=== PATIENT | female | born 1935 | race Caucasian/White ===

== ENCOUNTER 2020-01-06 18:05 | Inpatient (IN) | payer OTHER, MEDICARE, MEDICAID, SELFPAY ==
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
--- NOTE | ~2020-01-06 | MR_ITS ---
EXAMINATION: MR brain/brain stem wo con DATE: 01/07/2020 10:42 INDICATION: Stroke TECHNIQUE: Magnetic resonance imaging (MRI) of the brain and brainstem was performed without intraven ous contrast. Sequences included sagittal and axial T1-weighted SE, axial diffusion-weighted FS SE, a xial T2*-weighted GRE, axial T2-weighted FLAIR, and axial T2-weighted FSE. Apparent diffusion coeffic ient (ADC) maps were created. COMPARISON: Head CT dated 01/06/2020 FINDINGS: There is restricted diffusion and T2 hyperintense cytotoxic edema in the left temporal parietal occip ital region consistent with acute infarct. No intracranial hemorrhage or abnormal intracranial mass l esion. There are a few additional small scattered areas of nonspecific increased T2-weighted signal i ntensity in the cerebral white matter, predominantly involving the deep and periventricular white mat ter. There are no intraparenchymal signal abnormalities seen on the other pulse sequences. The ventri cles are symmetric and normal in size. There are no abnormal extra-axial fluid collections. Flow void s are seen in the cerebral arteries on the T2-weighted sequences consistent with their expected paten cy. Mild mucosal thickening the bilateral ethmoid sinuses. Changes of bilateral intraocular lens repl acement. There is anterior and posterior fusion at C4-C5. IMPRESSION: 1. Moderate-sized acute infarct in the left temporal parietal occipital region. Reviewed, dictated and finalized at location A.
--- NOTE | ~2020-01-06 | US_ITS ---
EXAMINATION: US carotid duplex BI DATE: 01/07/2020 11:32 INDICATION: CVA TECHNIQUE: Grayscale, color Doppler, and pulsed Doppler images of the cervical carotid arteries were obtained. The degree of vessel stenosis is placed in one of the following categories: normal, <50%, 5 0-69%, >=70% but less than near-occlusion, near-occlusion, or total occlusion. Note that percent sten osis relative to normal distal artery lumen diameter is indirectly measured from velocity measurement s as described by Laith, et al. Radiology 2003; 229:340-346. Notes: Normal: Peak systolic velocity <125 centimeters/sec and no plaque <50%. Peak systolic velocity <125 ( EDV <40; ICA/CCA PSV ratio <2.0; used these factors only a tandem lesions or low cardiac output or co ntralateral disease) 50-69 %: PSV 125-230 (EDV 40-100; ratio 2-4) >= 70% but less than near occlusion: PSV greater than 230 (EDV > 100; ratio> 4.0) Near Occlusion: PSV that is variable; markedly narrowed lumen Occlusion: Absent flow on color/spectral Doppler and no lumen on archer scale. COMPARISON: None. FINDINGS: RIGHT: The right common carotid artery (CCA) peak systolic velocity (PSV) is 57 cm/s. The right internal car otid artery (ICA) PSV is 150 cm/s. The right ICA end-diastolic velocity (EDV) is 36 cm/s. The right I CA/CCA PSV ratio is 2.6. The external carotid artery (ECA) PSV is 60 cm/s. There is antegrade flow in the right vertebral artery. LEFT: The left CCA PSV is 66 cm/s. The left ICA PSV is 68 cm/s. The left ICA EDV is 19 cm/s. The left ICA/C CA PSV ratio is 1. The ECA PSV is 58 cm/s. There is antegrade flow in the left vertebral artery. IMPRESSION: 1. 50-69% stenosis in the right internal carotid artery by sonographic criteria. 2. Less than 50% stenosis in the left internal carotid artery by sonographic criteria. Reviewed, dictated and finalized at location A. IMPRESSION: 1. 50-69% stenosis in the right internal carotid artery by sonographic criteria . 2. Less than 50% stenosis in the left internal carotid artery by sonographic cr iteria.
[2020-01-06 18:03] VITALS: BP 150/66; PULSE 76; RESP 18; TEMP 36.6; O2SAT 100
--- NOTE | 2020-01-06 18:15 | ECG_ITS ---
Measurements Intervals [place] Rate: 71 P: 44 LA: 172 QRS: -7 QRSD: 91 T: 8 QT: 384 QTc: 420 Interpretive Statements SINUS RHYTHM VOLTAGE CRITERIA FOR LVH BORDERLINE T WAVE ABNORMALITY- INFERIOR LEADS BASELINE ARTIFACT- I, II, AVR BORDERLINE ECG Electronically Signed On 01-07-2020 7:09:06 CDT by Beto Carreon D.O.
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
[2020-01-06 19:01] LABS: Basophils Percent Auto 0.4 % (0.2-1.2); Eosinophils Absolute Auto 0.2 K/mm3 (0-0.3); Eosinophils Percent Auto 2.8 % (0-4.4); Hematocrit 37.8 % (37.0-47.0); Hemoglobin 12.1 g/dL (12.0-15.0); Immature Granulocyte Absolute 0.03 K/mm3 (0.00-0.031); Immature Granulocyte Percent A 0.4 % (0-0.5); Lymphocytes Absolute Auto 1.26 K/mm3 (0.9-3.2); Lymphocytes Percent Auto 16.2 % (18.3-44.2); Mean Corpuscular Hemoglobin 28.1 pg (26-34); Mean Corpuscular Volume 87.7 fl (80-100); Mean Platelet Volume 11.2 fl (7.4-10.4); Monocytes Absolute Auto 0.8 K/mm3 (0.1-0.6); Monocytes Percent Auto 9.9 % (2.6-8.5); Neutrophils Absolute Auto 5.5 K/mm3 (1.3-6.7); Neutrophils Percent Auto 70.3 % (45.5-73.1); Platelet Count Result 188 k/mm3 (150-375); Red Blood Count 4.31 M/mm3 (4.2-5.4); Red Cell Distribution Width 15.3 % (11.5-14.5); White Blood Count 7.8 K/mm3 (4.5-10.0)
[2020-01-06 19:13] LABS: Blood Urea Nitrogen 31 mg/dL (7-17); Calcium 9.3 mg/dL (8.4-10.2); Carbon Dioxide 24 mmol/L (22-30); Chloride 108 mmol/L (98-107); Estimated CRCL calculation 30 ml/min; Estimated Glomerular Filt Rate 36; Glucose 113 mg/dL (65-105); Potassium 4.5 mmol/L (3.4-5.0); Sodium 139 mmol/L (137-145)
[2020-01-06 19:14] LABS: Partial Thromboplastin Time 22.4 SECONDS (22.3-36.8); Prothrombin Time 13.3 Seconds (11.1-14.7)
[2020-01-06 19:24] LABS: Troponin I < 0.012 ng/mL (0.000-0.034)
[2020-01-06 19:53] VITALS: BP 142/64; PULSE 73; RESP 18
--- NOTE | 2020-01-06 20:40 | ADMGEN ---
This patient, Leticia Nguyen, was admitted to 2 Medical Room 256-. Patient/family oriented to hospital policies and general routines including ID bracelet, bed and alarms, visiting hours, pain management, procedures, bathroom and other care routines, personal items, smoking policy, room service/diet, and visiting hours. Valuables list has been completed. Information on how to activate the Rapid Response Team has been discussed. Patient/Family are encouraged to report perceived risks to care and to ask questions if they do not understand what they are told or what they should do.
[2020-01-06 20:58] VITALS: BP 133/64; PULSE 79; RESP 20; TEMP 36.4; O2SAT 99
[2020-01-06 20:59] VITALS: BMI 31.9
[2020-01-06 21:00] VITALS: PULSE 73
[2020-01-06] MEDS: ACETAMINOPHEN 325 MG TABLET 650 MG PO (22:10)
[2020-01-06 23:48] VITALS: PULSE 79; RESP 20; O2SAT 99
[2020-01-07] VITALS (9 sets, daily range): BP systolic 124–132; BP diastolic 48–60; PULSE 65–79; RESP 16–18; TEMP 36.8–36.9; O2SAT 95–99
--- NOTE | 2020-01-07 | ECHO_ITS ---
Patient Info Name: Leticia Nguyen Age: 84 years : 1935 Gender: Female Ht: 63 in Wt: 208 lbs BSA: 2.09 m2 HR: 73 bpm BP: 124 / 48 mmHg Heart Rhythm: Sinus Rhythm Technical Quality: Good Exam Date: 01/07/2020 12:40 PM Exam Location: [facility] Exam Room: 256 Patient Status: Inpatient Admit Date: 01/07/2020 Staff Ordering Physician: Betsy Reveles DO Requirements Engineer: Essence Morrissey RDCS Attending Provider: Gabe Palencia PA-C Referring Physician: Anushka MARIE; Exam Type: CA echo doppler color flow Study Info Indications - acute cva Complete two-dimensional, color flow and Doppler transthoracic echocardiogram is performed. Summary 1. Left ventricular systolic function is normal, estimated at 65-70%. 2. The left ventricular diastolic function is grade II diastolic dysfunction. 3. There is mild tricuspid valve regurgitation. 4. No pulmonary hypertension, estimated pulmonary arterial systolic pressure is 35 mmHg. 5. There is mild aortic valve regurgitation. 6. There is no aortic valve stenosis. Left Ventricle Left ventricular chamber dimension is normal. Left ventricular systolic function is normal, estimated at 65-70%. There is no increased left ventricular wall thickness. The left ventricular diastolic function is grade II diastolic dysfunction. Right Ventricle Right ventricular chamber dimension is normal. Right ventricular systolic function is normal. Left Atria Left atrial chamber dimension is mildly enlarged. Right Atria Right atrial chamber dimension is mildly enlarged. Aortic Valve The aortic valve is trileaflet. There is no aortic valve stenosis. There is mild aortic valve regurgitation. There is mild aortic valve calcification. Pulmonic Valve The pulmonic valve is not well visualized. There is trace pulmonic regurgitation. There is mild pulmonic valve calcification. Mitral Valve The mitral valve has thickened leaflets. There is trace mitral valve regurgitation. The mitral valve annulus is moderately calcified. Tricuspid Valve The tricuspid valve leaflets are normal. There is mild tricuspid valve regurgitation. No pulmonary hypertension, estimated pulmonary arterial systolic pressure is 35 mmHg. Pericardium/Pleural The pericardium appears normal. There is trivial pericardial effusion. Inferior Vena Cava Normal inferior vena cava with >50% collapse upon inspiration consistent with normal right atrial pressure, 5 mmHg. Aorta The aortic root size at the sinus of Valsalva is normal. Left Ventricular Outflow Tract Name Value Normal LVOT 2D LVOT Diameter 2.0 cm LVOT Doppler LVOT Peak Velocity 121 cm/s LVOT Peak Gradient 6 mmHg LVOT Mean Gradient 3 mmHg LVOT VTI 28 cm LVOT VTI/AV VTI Ratio 0.7 LVOT Stroke Volume 86 ml LVOT CO 15.5 l/min LVOT CI 7.4 l/min/m2 Pulmonic Valve --------
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
[2020-01-07 07:22] LABS: Blood Urea Nitrogen 27 mg/dL (7-17); Calcium 8.7 mg/dL (8.4-10.2); Carbon Dioxide 26 mmol/L (22-30); Chloride 109 mmol/L (98-107); Estimated CRCL calculation 56 ml/min; Estimated Glomerular Filt Rate 60; Glucose 99 mg/dL (65-105); Potassium 4.3 mmol/L (3.4-5.0); Sodium 138 mmol/L (137-145)
[2020-01-07] MEDS: AMLODIPINE BESYLATE 5 MG TABLET 10 MG PO (09:35)
[2020-01-07] MEDS: METOPROLOL TARTRATE 25 MG TABLET PO (09:36)
[2020-01-07] MEDS: PANTOPRAZOLE 40 MG TABLET PO (09:36)
--- NOTE | 2020-01-07 09:41 | PCOTNOTE ---
OT attempted initial evaluation. Nurse stated she was getting ready to get an MRI and to try again later.
--- NOTE | 2020-01-07 09:41 | PCPTNOTE ---
Attempted PT eval this a.m. - pt going down for MRI. Will attempt PT eval later on today.
--- NOTE | 2020-01-07 14:21 | PM.IMPN ---
Progress Note: A&P Assessment and Plan (1) Acute ischemic stroke: Code(s): I63.9 - Cerebral infarction, unspecified Status: Acute Assessment and Plan: Neurology has been consulted and appreciate recommendations. Spoke with Dr. Viramontes today who recommended patient resume Xarelto at 10 mg tonight. Also recommended initiating a statin. Echo pending. MRI brain confirmed moderate sized acute CVA in left temporal parietal occipital region. Carotid dopplers shows 50-69% stenosis in right carotid and less than 50% stenosis in left. Patient did well with PT/OT and had no discharge recommenations Dr. 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 Continue to monitor Continue Xarelto tonight at 10 mg (half her home dose) and start atorvastatin 40 mg tonight per Neurology recommendations Further rec per Neurology appreciated. (2) Elevated serum creatinine: Code(s): R79.89 - Other specified abnormal findings of blood chemistry Status: Acute Assessment and Plan: Patient does not appear to have CKD listed in her EMR. Cr improved to 0.90 this morning, appears to be at baseline Will repeat BMP tomorrow Monitor (3) Hypertension: Qualifiers: Hypertension type: essential hypertension Qualified Code(s): I10 - Essential (primary) hypertension Code(s): I10 - Essential (primary) hypertension Status: Acute Assessment and Plan: BP reviewed and 130s sys this afternoon Continue home antihypertensives Monitor (4) Chronic bronchitis: Code(s): J42 - Unspecified chronic bronchitis Status: Acute Assessment and Plan: No acute issues at this moment. Lung exam unremarkable Continue home medications (5) GERD (gastroesophageal reflux disease): Code(s): K21.9 - Gastro-esophageal reflux disease without esophagitis Status: Acute Assessment and Plan: No acute issues at this moment Continue home PPI Subjective Date/time seen: 01/07/20 14:21 Interval history: Patient is a 84 yo right handed F with a past medical history of DVT on chronic anticoagulation and TIA in 2016 who is here for work up for an acute stroke. Patient tells me her symptoms have nearly resolved since being seen overnight by the cook apprentice. Her main complaint are issues with her depth perception, but otherwise she is able to tell time on the clock, which was difficult this morning. Her right handed numbness has improved as well She states PT/OT evaluation went well today. She has a headache and lightheadedness today, but otherwise no other complaints. She denies f/c/s, myalgias/arthralgias, cp/palpitations, sob/cough, n/v/d/c, dysphagia, abd pain, changes in BMs, dysuria, hematuria, cloudy urine, calf pain/swelling. Review of Systems Review of Systems: All systems reviewed & are unremarkable except as noted in HPI and below Exam Narrative: Exam Narrative: Patient lying in semi-seals's position in bed at time of visit Const: General: cooperative, comfortable, no acute distress, well developed and alert Orientation/consciousness: patient oriented x3 HENMT: Head: normocephalic and atraumatic General nose exam: Normal nares present Face and sinus: face symmetric Mouth: Yes tongue normal and Yes moist mucous membranes Eyes: General: appearance normal, both eyes and all related structures EOM: EOMs intact bilaterally Resp: Effort & Inspection: normal respiratory effort Auscultation: clear to auscultation bilaterally Cardio: Rate: regular rate Rhythm: regular rhythm Heart sounds: no murmurs GI: Inspection: non-distended GI Palp: Yes abdom
[2020-01-07] MEDS: ACETAMINOPHEN 325 MG TABLET 650 MG PO (16:16)
[2020-01-07] MEDS: RIVAROXABAN 10 MG TABLET PO (17:08)
[2020-01-08] VITALS: BP 137/64; PULSE 73; PULSE 79; RESP 22; TEMP 36.7; O2SAT 96
[2020-01-08 04:00] VITALS: PULSE 78
[2020-01-08 05:33] LABS: Blood Urea Nitrogen 20 mg/dL (7-17); Calcium 8.6 mg/dL (8.4-10.2); Carbon Dioxide 27 mmol/L (22-30); Chloride 106 mmol/L (98-107); Cholesterol 160 mg/dL (0-200); Estimated CRCL calculation 56 ml/min; Estimated Glomerular Filt Rate 60; Glucose 98 mg/dL (65-105); HDL Direct 53 mg/dL; Magnesium 1.9 mg/dL (1.6-2.3); Potassium 4.3 mmol/L (3.4-5.0); Sodium 136 mmol/L (137-145); Triglycerides 72 mg/dL (<150)
[2020-01-08 05:43] LABS: LDL Cholesterol Direct 75 mg/dL
[2020-01-08 05:48] VITALS: BP 158/62; PULSE 86; RESP 20; TEMP 37.4; O2SAT 93
[2020-01-08 08:00] VITALS: PULSE 89
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
[2020-01-08] MEDS: AMLODIPINE BESYLATE 5 MG TABLET 10 MG PO (09:45)
[2020-01-08 09:46] VITALS: PULSE 86
[2020-01-08] MEDS: ATORVASTATIN 40 MG TABLET PO (09:46)
[2020-01-08] MEDS: PANTOPRAZOLE 40 MG TABLET PO (09:46)
[2020-01-08] MEDS: METOPROLOL TARTRATE 25 MG TABLET PO (09:46)
--- NOTE | 2020-01-08 12:23 | CONS_ITS ---
DATE OF CONSULTATION: 01/07/2020 ADDENDUM The patient has had a Doppler echocardiogram, which documented left ventricle systolic function normal, 65% to 70%, with diastolic function grade 2 dysfunction, mild tricuspid wall regurgitation. No pulmonary hypertension. Mild aortic valve regurgitation, but no aortic valve stenosis. Brain MRI documented the seen infarct on the CT scan, moderate-size acute infarct involving the left temporoparietal region and carotid Doppler study also documented that she has 50% to 69% stenosis in the right internal carotid artery along with less than 50% stenosis in left internal carotid artery by sonographic criteria, but as mentioned before the patient is already on the Rivaroxaban. Treatment will be continued as such. RENETTA GARCIA M.D. PIN MAKER PIN MAKER D I MT: Analisa
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
== END 2020-01-08 13:35 | disposition home or self-care (01) | DRG 66 ==
LOC: ANHED 19:38 → ANH2MED 20:09
PROVIDERS: Emergency Medicine Emergency Medical Services; Physician Assistant; Admitting Provider Internal Medicine; Emergency Provider Emergency Medicine; PCP Internal Medicine; Visit Provider Hospitalist
DX: I63.233 Cerebral infarction due to unspecified occlusion or stenosis of bilateral carotid arteries (principal); H53.8 Other visual disturbances; R51 Headache; R41.0 Disorientation, unspecified; R79.89 Other specified abnormal findings of blood chemistry; K21.9 Gastro-esophageal reflux disease without esophagitis; J42 Unspecified chronic bronchitis; I51.9 Heart disease, unspecified; N32.81 Overactive bladder; N39.46 Mixed incontinence; I12.9 Hypertensive chronic kidney disease with stage 1 through stage 4 chronic kidney disease, or unspecified chronic kidney disease; N18.9 Chronic kidney disease, unspecified; Z96.652 Presence of left artificial knee joint; Z86.718 Personal history of other venous thrombosis and embolism; Z86.73 Personal history of transient ischemic attack (TIA), and cerebral infarction without residual deficits; Z79.01 Long term (current) use of anticoagulants; Z90.710 Acquired absence of both cervix and uterus; Z98.42 Cataract extraction status, left eye; Z98.41 Cataract extraction status, right eye
CPT/HCPCS: 36415; 70450; 70551; 71045; 72125; 80048; 80061; 83735; 84484; 85025; 85610; 85730; 93005; 93306; 93880; 94640; 97110; 97116; 97161; 97165; 99285; A9270; G0378

== ENCOUNTER 2020-03-03 10:00 | Outpatient (RCR) | payer MEDICARE, SELFPAY ==
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
--- NOTE | 2020-01-21 10:32 | PCPTNOTE ---
faxed request to for OT eval and treatment orders;
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
--- NOTE | 2020-02-18 15:39 | PTOPEVAL ---
PHYSICAL THERAPY DISCHARGE 02-18-2020 Mrs. Nguyen has received 8 PT sessions, from January 20 to today, for the diagnosis of cerebral infarct, with decreased mobility/ gait. She has improved with LE strength, Canales balance score, 5 reps sit/stand time and has been educated on a home exercise program. The goals were partially achieved. Thank you for referring Leticia Nguyen to [facility]. Please review, sign, date and return this discharge NELY. I agree with and certify that the following plan of care is medically necessary. Referring Physician Date Attending Provider: Juan C Gallardo, Document 02/18/20 13:45 ADEN (Rec: 02/18/20 14:17 ADEN [id number]) Subjective Information Pat reports: doing leg Query Text:As Reported By Patient/ exercises at home, going out Family with her family to restarants and did well; has not had any falls; not have any problems with walking or getting around her home; agrees to discharge from PT; Pain Assessment Pain Scale Pain Scale Used Numeric (1 - 10) Pain Score Additional Pain Score Comments back pain 1/10- usual LBP Lower Extremity Muscle Strength Testing General Lower Extremity Strength Gross Lower Extremity Strength supine: bridge 30 reps; SLR R 20/L 20 reps; side lying hip abduction to 5' R and L 20 reps; Transfer Assessment Floor Transfer Assessment Floor Transfer Comments pt refused to do- stated do not do that, have not done for years, do not ever get down onto the floor ; Balance Assessment Canales Balance Assessment Sitting to Standing Independent w/out Hands Unsupported Stance Ability Safely- 2 minutes Sitting Unsupported, Feet on Floor Safely- 2 minutes Standing to Sitting Safely, Minimal Hand Use Transfer Ability Safely, Minimal Hand Use Unsupported Stance- Eyes Closed Safely, 10 seconds Unsupported Stance- Feet Together Independent, 1 minute Reaching Forward while Standing Confidently, 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
--- NOTE | 2020-03-03 10:53 | OTOPEVAL ---
OCCUPATIONAL THERAPY DISCHARGE NOTE 03/03/2020 Thank you for referring Leticia Nguyen to [facility]. No further skilled OT indicated at this time. Patient is independent with HEP and compensatory techniques for visual deficits following this CVA. Please review, sign, date and return this D/C note NELY. I agree with and certify that the following plan of care is medically necessary. Referring Physician Date Referring Provider: Juan C Gallardo, *OT Outpatient Re-Evaluation Evaluation Information Problem Diagnosis s/p CVA Additional Evaluation Detail Leticia has been participating in outpatient OT following CVA with oculo- motor and visual perceptual deficits. Since SOC there have been improvements with tracking, saccades, and her reports of blurry vision. Visual perceptual skills of spatial relations, form consistency, and figure/ground continue to demonstrate deficits. Subjective Information Patient reports improved Query Text:As Reported By Patient/ visual abilities since working Family with OT. She states that she is able to read at least 4 lines of a book before her eyes fatigue and ache. At the SOC she was unable to read any lines of book. She reports that she does have blurry vision, especially when trying to see small print. Pain Assessment Timing of Pain Assessment Timing of Pain Assessment Re-assessment Self Report Self Report Pain Level 0 Pain Score Pain Score 0: Self Report Visual Screening Visual Perception Assessment Visual Spatial Deficit Depth Perception,Spatial Relations,Form Consistency, Figure/Ground Visual Field Deficit No Deficits Noted Visual Screening Ocular Motor - Range of Motion Intact - Left,Intact - Right Ocular Motor - Tracking Intact - Left,Intact - Right Ocular Motor - Convergence Within Normal Limits Ocular Motor - Saccades Accurate Visual Sutton - Line Bisection Within Normal Limits Visual Sutton - Peripheral Sutton, 60 Temporally - Right Visual Sutton - Peripheral Sutton, 70 Temporally - Left Visual Screening Comments Patient had improved ability with scanning her visual field
== END 2020-03-04 08:40 | disposition home or self-care (01) ==
LOC: ANHOT 10:00
PROVIDERS: PCP Internal Medicine; Visit Provider Internal Medicine
DX: I63.9 Cerebral infarction, unspecified (principal)
CPT/HCPCS: 97110; 97116; 97162; 97166; 97530

== ENCOUNTER 2020-04-03 00:26 | Outpatient (CLI) | payer MEDICARE, SELFPAY ==
[2020-04-03 18:30] LABS: SARS-CoV-2 RNA PCR Negative
== END 2020-04-03 00:27 | disposition home or self-care (01) ==
LOC: ANHCOVIDDT 00:26
PROVIDERS: PCP Internal Medicine; Visit Provider Internal Medicine Gastroenterology
DX: Z01.812 Encounter for preprocedural laboratory examination (principal); Z11.59 Encounter for screening for other viral diseases
CPT/HCPCS: 87635; C9803; U0003

== ENCOUNTER 2020-04-06 02:05 | Day surgery (SDC) | payer MEDICARE, MEDICAID, SELFPAY ==
[2020-04-02 16:30] VITALS: BMI 35.3
--- NOTE | 2020-04-06 07:17 | WPDANESEPPF ---
Anes - Initial Pre Proc Eval Procedure: Operation Date: 04/06/20 09:30 Proposed Procedures p Esophagogastroduodenoscopy - Varinder العلي MD Date/Time: 04/06/20 07:17 Surgeon: Varinder العلي MD Pre Op Diagnosis: Dysphagia Patient Data Age: 84 Gender: F Height: 1.52 m Weight: 82 kg Allergies Allergy/AdvReac Type Severity Reaction Status Date / Time codeine Allergy Intermediate Swelling Verified 04/06/20 08:42 of Lip/Tongue/Throat shellfish derived Allergy Intermediate SWELLING Verified 04/06/20 08:42 fish derived Allergy Unknown SWELLING Verified 04/06/20 08:42 Home Medications Medication Instructions Recorded Confirmed Type budesonide-formoterol HFA 160 2 puff INHALATION BID gm 07/16/19 02/26/20 History mcg-4.5 mcg/actuation aerosol inhaler metoprolol tartrate 25 mg tablet 25 mg PO DAILY 07/16/19 02/26/20 History omeprazole 20 mg capsule,delayed 20 mg PO DAILY #90 cap 10/07/19 02/26/20 Rx release amlodipine 10 mg tablet 10 mg PO DAILY #30 tablet 01/05/20 02/26/20 Rx rivaroxaban 20 mg tablet 20 mg PO QPM #30 tablet 01/05/20 04/06/20 Rx hydrochlorothiazide 12.5 mg capsule 12.5 mg PO DAILY #90 cap 02/26/20 02/26/20 Rx meclizine 25 mg tablet 25 mg PO TID PRN #90 tablet 03/16/20 Rx Patient hx anesthesia problems: none Family hx anesthesia problems: none [facility] Past Medical History Medical History (Updated 04/06/20 @ 07:17 by Bryn Khalil DO) Chronic bronchitis PFTs May 2018 demonstrating mild restrictive him [id number] obstructive disease of the small airways CVA (cerebral vascular accident) multiple x5, most recent in 01/2020 Essential hypertension With prior hospitalizations for malignant hypertension in 2018 GERD (gastroesophageal reflux disease) History of DVT (deep vein thrombosis) Right popliteal vein 2015 on long-term anticoagulation with Xarelto History of stroke with residual deficit Overactive bladder Seasonal rhinitis TIA (transient ischemic attack) With negative MRI December 2015 Urinary incontinence, mixed Vertigo Surgical History Surgical History (Updated 01/07/20 @ 02:30 by Betsy Reveles DO) H/O foot surgery BL H/O repair of rotator cuff Left History of appendectomy History of bilateral breast biopsy With benign pathology History of bilateral cataract extraction History of bladder suspension procedure With subsequent revision History of cardiac catheterization 16 years ago that was reportedly negative History of left knee replacement January 2012 History of spinal surgery cages is sacroiliac in right side History of total hysterectomy with bilateral salpingo-oophorectomy (BSO) Family History Family History (Updated 01/07/20 @ 02:32 by Betsy Reveles DO) Son Diabetes mellitus Enlarged heart Son Enlarged heart Father Pancreatic cancer Sibling Myasthenia gravis Cancer Mother Emphysema lung Social History Social History (Updated 01/07/20 @ 06:32 by Betsy Reveles DO) Social History: Primary care physician: Dr. Gallardo Code status: Full code Smoking status: Never smoker Second hand tobacco smoke exposure: Yes (Heavy secondhand smoke exposure ([employer], smoked)) Alcohol intake: current Substance use: never Substance use type: does not use Additional living arrangements comments: She is and lives alone. She is independent in activities of daily living. 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 Last week she sat down and wrote a thank you card to each of the children. Now 2 days she is having difficulty signing her own name. She has 4 children. Her daughter and son-in-law live locally. Two of her sons live in [place] in the oldest son lives in [place]. Additional occupation/education comments: [employer]
[2020-04-06] MEDS: LACTATED RINGERS 1,000 ML 150 ML IV CONT (08:48)
[2020-04-06 08:50] VITALS: BP 122/91; PULSE 72; RESP 18; TEMP 36.2; O2SAT 98
--- NOTE | 2020-04-06 09:31 | WPDHPUPDATE1 ---
History and Physical Update Update Date/Time: 04/06/20 09:31 History and Physical has been reviewed, including an updated exam of the patient. There are NO changes in the patient's condition. Risks, benefits, and alternatives have been discussed and questions answered. Patient agrees to proceed with procedure.
[2020-04-06 09:59] VITALS: BP 121/62; PULSE 64; RESP 19; O2SAT 100
[2020-04-06 10:09] VITALS: BP 132/64; PULSE 67; RESP 20; O2SAT 98
[2020-04-06 10:19] VITALS: BP 132/69; PULSE 65; RESP 22; O2SAT 99
== END 2020-04-06 10:33 | disposition home or self-care (01) ==
PROVIDERS: PCP Internal Medicine; Visit Provider Internal Medicine Gastroenterology
PROC: 0DJ08ZZ Inspection of Upper Intestinal Tract, Via Natural or Artificial Opening Endoscopic (ICD-10-PCS; CPT 43235; principal; 2020-04-06 09:30)
DX: K22.2 Esophageal obstruction (principal); K44.9 Diaphragmatic hernia without obstruction or gangrene; K29.50 Unspecified chronic gastritis without bleeding; K21.0 Gastro-esophageal reflux disease with esophagitis; I10 Essential (primary) hypertension; J42 Unspecified chronic bronchitis; Z86.73 Personal history of transient ischemic attack (TIA), and cerebral infarction without residual deficits; E66.9 Obesity, unspecified; Z68.38 Body mass index [BMI] 38.0-38.9, adult
CPT/HCPCS: 43239; 43249; 88305; C1726; J2001; J2704; J7120

== ENCOUNTER 2020-06-24 10:03 | Observation (INO) | payer MEDICARE, MEDICAID, SELFPAY ==
[2020-06-24] VITALS (30 sets, daily range): BP systolic 112–153; BP diastolic 56–101; PULSE 56–78; RESP 8–26; TEMP 36.3–37.2; O2SAT 80–100; BMI 34.5
--- NOTE | ~2020-06-24 | CT_ITS ---
EXAMINATION: CT brain wo con DATE: 06/24/2020 10:59 INDICATION: Dizziness TECHNIQUE: Computed tomography (CT) of the head was performed without intravenous contrast. The dose- length product was 605.33 mGy-cm. The mA was adjusted according to patient size. Iterative reconstruc tion technique was employed. COMPARISON: CT dated 01/06/2020 FINDINGS: There is a chronic left posterior parietal infarction with encephalomalacia. No acute intra cranial hemorrhage, infarction, mass or mass effect. No ventriculomegaly or midline shift. There is i ntracranial atherosclerosis. Paranasal sinuses and mastoids are pneumatized. IMPRESSION: 1. No acute intracranial abnormality. 2: Chronic left posterior parietal infarctions. Reviewed, dictated and finalized at location B.
--- NOTE | ~2020-06-24 | MR_ITS ---
EXAMINATION: MRA brain wo con EXAM DATE: 06/25/2020 15:27 INDICATION: Dizziness and ataxia. Contrast allergy. TECHNIQUE: 3-D [id number] MRA of the intracranial arteries was performed without contrast. There is no prior study for comparison. FINDINGS: There is normal flow related signal seen within the vertebral, basilar and internal carotid arteries. There is no proximal stenosis. There are no aneurysms identified. Both A1 and P1 segments are pat ent. Evidence of mild scattered cerebral artery atherosclerosis. There is left-sided posterior communicat ing artery dominant posterior cerebral artery with diminished flow related signal proximally compared to contralateral side, uncertain whether this is atherosclerosis or artifactual. Flow signal beyond this proximal segment is symmetric to the contralateral side. The vertebral arteries are codominant. Old left parieto-occipital infarction. IMPRESSION: Mild scattered cerebral atherosclerosis. Reviewed, dictated and finalized at location A.
--- NOTE | ~2020-06-24 | XR_ITS ---
EXAMINATION: XR chest 1V portable DATE: 06/24/2020 10:50 INDICATION: Dizziness. Emphysema. TECHNIQUE: frontal view of the chest was obtained. COMPARISON: Chest radiograph dated 01/06/2020 FINDINGS: Evaluation of the lower lung zones mildly limited by patient body habitus. Small lung volumes likely due in part to lordotic positioning. No focal airspace opacities, pulmonary edema, pleural effusion o r pneumothorax. The cardiomediastinal silhouette is within normal limits for AP technique. Mild upper thoracic levocurvature with moderate spondylosis. IMPRESSION: 1. No acute cardiopulmonary disease. Reviewed, dictated and finalized at location A.
--- NOTE | ~2020-06-24 | MR_ITS ---
EXAMINATION: MR brain/brain stem wo con EXAM DATE: 06/24/2020 18:12 INDICATION: Dizziness, ataxia TECHNIQUE: Magnetic resonance imaging (MRI) of the brain/brain stem obtained without contrast. Maritaitt al T1, axial diffusion, gradient echo (T2*), T1, T2, FLAIR sequences obtained. Comparison is made to prior examination from 01/07/2020. FINDINGS: There is old moderate-sized left occipital parietal lobe infarction, encephalomalacia with expected evolution compared to the infarcted region on prior MRI. There are no areas of restricted di ffusion to suggest acute infarction. There is no acute hemorrhage seen on the T2*, a hemosiderin sen sitive sequence. No intraparenchymal brain mass lesion. There is mild periventricular and subcortica l T2/FLAIR signal hyperintensity, nonspecific but probably related to small vessel ischemic disease ( microangiopathy). There is mild prominence of the sulci and ventricles related to cerebral atrophy. There are no extra-axial collections. Flow voids are seen in the cerebral arteries on the T2-weig hted sequences consistent with their expected patency. Patient has had bilateral ocular lens surgery . Soft tissue is unremarkable. IMPRESSION: 1. Left parieto-occipital encephalomalacia, moderate size old infarction. 2. Chronic age related findings. Reviewed, dictated and finalized at location A.
--- NOTE | ~2020-06-24 | MR_ITS ---
EXAMINATION: MRA neck wo con DATE: 06/25/2020 15:41 INDICATION: Dizziness. Ataxia. TECHNIQUE: Magnetic resonance angiography (MRA) of the neck was performed without intravenous contras t. Sequences included axial 2D-time of flight T1-weighted FSPGR and axial Inhance without intravenous contrast. COMPARISON: Ultrasound 01/07/2020 FINDINGS: Right vertebral artery is dominant. There is plaque in the proximal internal carotid arteries. There is 45% stenosis of the proximal right internal carotid artery relative to normal distal artery lumen diameter (NASCET criteria). There is 0% stenosis of the proximal left internal carotid artery relati ve to normal distal artery lumen diameter. IMPRESSION: 1. 45% stenosis of the proximal right internal carotid artery relative to normal distal artery lumen diameter (NASCET criteria). 2. 0% stenosis of the proximal left internal carotid artery relative to normal distal artery lumen di ameter. Reviewed, dictated and finalized at location A. IMPRESSION: 1. 45% stenosis of the proximal right internal carotid artery relative to maria de jesus l distal artery lumen diameter (NASCET criteria). 2. 0% stenosis of the proximal left internal carotid artery relative to normal distal artery lumen diameter.
--- NOTE | 2020-06-24 10:28 | ECG_ITS ---
Measurements Intervals Golden Rate: 58 P: 9 DC: 173 QRS: -5 QRSD: 82 T: 10 QT: 419 QTc: 413 Interpretive Statements SINUS BRADYCARDIA DELAYED PRECORDIAL R/S TRANSITION VOLTAGE CRITERIA FOR LVH BASELINE ARTIFACT- I, III, AVR, AVL, AVF, V1-V2, V5 BORDERLINE ECG Electronically Signed On 06-24-2020 10:31:27 CDT by Beto Carreon D.O.
[2020-06-24] MEDS: SODIUM CHLORIDE 0.9% IV 1,000 ML 999 ML IV CONT (10:40)
[2020-06-24 10:46] LABS: Basophils Percent Auto 0.5 % (0.2-1.2); Eosinophils Absolute Auto 0.3 K/mm3 (0-0.3); Hematocrit 39.5 % (37.0-47.0); Hemoglobin 12.7 g/dL (12.0-15.0); Immature Granulocyte Absolute 0.02 K/mm3 (0.00-0.031); Immature Granulocyte Percent A 0.3 % (0-0.5); Lymphocytes Absolute Auto 1.68 K/mm3 (0.9-3.2); Lymphocytes Percent Auto 25.8 % (18.3-44.2); Mean Corpuscular HGB Conc 32.2 g/dl (32-36); Mean Corpuscular Hemoglobin 28.1 pg (26-34); Mean Corpuscular Volume 87.4 fl (80-100); Mean Platelet Volume 10.8 fl (7.4-10.4); Monocytes Absolute Auto 0.7 K/mm3 (0.1-0.6); Neutrophils Absolute Auto 3.9 K/mm3 (1.3-6.7); Neutrophils Percent Auto 59.4 % (45.5-73.1); Platelet Count Result 202 k/mm3 (150-375); Red Blood Count 4.52 M/mm3 (4.2-5.4); White Blood Count 6.5 K/mm3 (4.5-10.0)
[2020-06-24 10:50] LABS: Glucose Point of Care 95 (65-105)
[2020-06-24 10:56] LABS: INR 1.4; Partial Thromboplastin Time 26.9 SECONDS (22.3-36.8); Prothrombin Time 16.5 Seconds (11.1-14.7)
[2020-06-24 11:04] LABS: Anion Gap 8 mmol/L (8-16); Blood Urea Nitrogen 32 mg/dL (7-17); Carbon Dioxide 29 mmol/L (22-30); Chloride 104 mmol/L (98-107); Estimated CRCL calculation 40 ml/min; Estimated Glomerular Filt Rate 53; Glucose 112 mg/dL (65-105); Potassium 4.4 mmol/L (3.4-5.0); Sodium 141 mmol/L (137-145)
[2020-06-24 11:14] LABS: Troponin I < 0.012 ng/mL (0.000-0.034)
--- NOTE | 2020-06-24 11:49 | ED.DIZZY ---
HPI - Dizziness General Chief Complaint: Dizziness Stated Complaint: dizziness, abnormal gait x 1 day Time Seen by Provider: 06/24/20 10:07 History of Present Illness HPI Narrative: Patient is an 84-year-old female who presents ER with dizziness. Reports it began 2 days ago. Feels like chest pain dizziness inside her head as well as some burning in her right ear. Symptoms seem to be positional. She has been taking meclizine recurrently over the last few days without any relief as she does have history of peripheral vertigo. Patient called her primary care physician who referred her here. She reports she has had difficulty with balance and has been having the hold onto the quarles of her home to steady herself. She has not fallen but she does live by herself and takes Xarelto. Related Data Home Medications Medication Instructions Recorded Confirmed metoprolol tartrate 25 mg tablet 25 mg PO DAILY 07/16/19 04/08/20 Allergies Allergy/AdvReac Type Severity Reaction Status Date / Time codeine Allergy Intermediate Swelling Verified 06/24/20 10:35 of Lip/Tongue/Throat shellfish derived Allergy Intermediate SWELLING Verified 06/24/20 10:35 fish derived Allergy Unknown SWELLING Verified 06/24/20 10:35 Review of Systems Review of Systems: All systems reviewed & are unremarkable except as noted in HPI and below Constitutional: Constitutional: Denies chills, Denies fever(s) and Denies weakness ENT: Reports vertigo, Denies nasal congestion and Denies sore throat Cardiovascular: Cardiovascular: Denies chest pain, Denies rapid heart rate and Denies radiating jaw, neck or arm pain Respiratory: Respiratory: Denies cough, Denies dyspnea and Denies wheezing Gastrointestinal: Gastrointestinal: Denies abdominal pain, Denies nausea and Denies vomiting Neurologic: Reports dizziness, Denies focal weakness and Denies numbness Comments: Ataxia PMFSH Past Medical History Medical History (Updated 06/24/20 @ 13:04 by Frank Arzate MD) Chronic bronchitis PFTs May 2018 demonstrating mild restrictive him [id number] obstructive disease of the small airways CVA (cerebral vascular accident) multiple x5, most recent in 01/2020 Essential hypertension With prior hospitalizations for malignant hypertension in 2018 GERD (gastroesophageal reflux disease) History of DVT (deep vein thrombosis) Right popliteal vein 2015 on long-term anticoagulation with Xarelto History of stroke with residual deficit Overactive bladder Seasonal rhinitis TIA (transient ischemic attack) With negative MRI December 2015 Urinary incontinence, mixed Vertigo Surgical History Surgical History (Updated 01/07/20 @ 02:30 by Betsy Reveles DO) H/O foot surgery BL H/O repair of rotator cuff Left History of appendectomy History of bilateral breast biopsy With benign pathology History of bilateral cataract extraction History of bladder suspension procedure With subsequent revision History of cardiac catheterization 16 years ago that was reportedly negative History of left knee replacement January 2012 History of spinal surgery cages is sacroiliac in right side History of total hysterectomy with bilateral salpingo-oophorectomy (BSO) Family History Family History (Updated 01/07/20 @ 02:32 by Betsy Reveles DO) Son Diabetes mellitus Enlarged heart Son Enlarged heart Father Pancreatic cancer Sibling Myasthenia gravis Cancer Mother Emphysema lung Social History Social History (Updated 01/07/20 @ 06:32 by Betsy Reveles DO) Social History: Primary care physician: Dr. 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
[2020-06-24 12:01] LABS: Add Urine Microscopic? YES; Appearance Urine Clear (Clear); Bacteria Urine Trace /hpf; Bilirubin Urine Negative (Negative); Blood Urine Negative (Negative); Color Urine Yellow (Yellow); Glucose Urine UA Negative (Negative); Ketones Urine Negative (Negative); Leukocyte Esterase Ur 1+ LEU/UL (Negative); Mucus Urine Rare /lpf; Nitrate Urine Positive (Negative); Protein Urine Negative (Negative); Specific Grav Ur 1.013 (1.001-1.035); Squamous Epithelial Cell Urine Few /hpf (Few); Urobilinogen Urine Negative mg/dL (<2.0); WBC Urine 21-30 /hpf
[2020-06-24] MEDS: CEPHALEXIN 500 MG CAPSULE PO (12:24)
--- NOTE | 2020-06-24 13:29 | PC.NURSE ---
ERP Dr. Alvarenga notified of pt blood pressure continuing to drop. 60/33 at this time.
--- NOTE | 2020-06-24 18:13 | PM.IMHP ---
H&P: HPI History of Present Illness Date/Time: 06/24/20 18:13 Chief complaint: DIZZINESS,ATAXIA Narrative: Leticia Nguyen is a 84 year old female Who lives home alone. She has had several CVAs and a TIA in the past. The patient does have a history of vertigo. However 2 days ago the patient said she woke up feeling dizzy. With her vertigo it is typically the dizziness when she gets up and walks around. She has been taking her meclizine. She woke up yesterday and was feeling dizzy and her bed so she took the meclizine and just cannulate around. So today when she woke up it was even worse so she decided she would come to the emergency room. She told me that she did not developed any chest pain. She said that she felt like her right ear was burning and she said that the ED provider did look in her urine told her that there was nothing wrong with her ear. She had called her primary care doctor who referred her to come to the emergency room. She was having difficulty with her balance and was having to hold onto the wall to steady herself. She has not fallen but she lives home alone and she is on Xarelto. She was given IV fluids and Valium and Keflex for UTI. Urine cultures are pending. CT of the head was read as no acute intracranial abnormality. Chronic left posterior parietal infarctions. MRI shows left parietal occipital encephalomalacia moderate-sized old infarction. Chronic age-related findings. Patient is admitted observation 06/24/2020 Review of Systems Review of Systems: All systems reviewed & are unremarkable except as noted in HPI and below Constitutional: Constitutional: Reports as per HPI and Reports no additional constitutional complaints Eyes: Eyes: Reports as per HPI and Reports no additional eye complaints ENT: Reports system reviewed and no additional complaints, except as documented and Reports Normal hearing present Cardiovascular: Cardiovascular: Reports no additional cardiovascular complaints Respiratory: Respiratory: Reports no additional respiratory complaints and Reports no additional respiratory complaints Gastrointestinal: Gastrointestinal: Reports as per HPI and Reports no additional gastrointestinal complaints Musculoskeletal: Musculoskeletal: Reports no additional musculoskeletal complaints Integumentary/Breasts: Skin/Breast: Reports system reviewed and no additional complaints, except as docu and Reports as per HPI Neurologic: Reports system reviewed and no additional complaints, except as documented, Reports as per HPI and Reports Normal hearing present Psychiatric: Psychiatric: Reports no additional psychiatric complaints and Reports as per HPI Endocrine: Endocrine: Reports no additional endocrine complaints Hematologic/Lymphatic: Hematologic/Lymphatic: Reports no additional hematologic/lymphatic complaints Allergic/Immunologic: Allergic/Immunologic: Reports no additional allergic/immunologic complaints [facility] Past Medical History Medical History Chronic bronchitis PFTs May 2018 demonstrating mild restrictive him [id number] obstructive disease of the small airways CVA (cerebral vascular accident) multiple x5, most recent in 01/2020 Essential hypertension With prior hospitalizations for malignant hypertension in 2018 GERD (gastroesophageal reflux disease) History of DVT (deep vein thrombosis) Right popliteal vein 2015 on long-term anticoagulation with Xarelto History of stroke with residual deficit Overactive bladder Seasonal rhinitis TIA (transient ischemic attack) With negative MRI December 2015 Urinary incontinence, mixed Vertigo Surgical History Surgical History H/O foot surgery BL H/O repair of rotator cuff Left History of appendectomy History of bilateral breast biopsy With benign pathology History of bilateral cataract extraction History of bladder suspe
--- NOTE | 2020-06-24 19:44 | PC.NURSE ---
1425 This patient, Leticia Nguyen, was admitted to 3 [facility] Surg Room 304-01. Patient/family oriented to hospital policies and general routines including ID bracelet, bed and alarms, visiting hours, pain management, procedures, bathroom and other care routines, personal items, smoking policy, room service/diet, and visiting hours. Information on how to activate the Rapid Response Team has been discussed. Patient/Family are encouraged to report perceived risks to care and to ask questions if they do not understand what they are told or what they should do.
[2020-06-24] MEDS: RIVAROXABAN 20 MG TABLET PO (21:32)
[2020-06-24] MEDS: MECLIZINE HCL 25 MG TABLET PO (21:39)
[2020-06-25] VITALS (17 sets, daily range): BP systolic 107–154; BP diastolic 54–87; PULSE 60–79; RESP 16–20; TEMP 36.3–37.1; O2SAT 97–100
--- NOTE | 2020-06-25 00:35 | PCRCNOTE ---
Window of time for administration has passed. See next scheduled administration.
[2020-06-25 05:54] LABS: Basophils Percent Auto 0.7 % (0.2-1.2); Eosinophils Absolute Auto 0.2 K/mm3 (0-0.3); Hemoglobin 11.6 g/dL (12.0-15.0); Immature Granulocyte Absolute 0.03 K/mm3 (0.00-0.031); Immature Granulocyte Percent A 0.5 % (0-0.5); Lymphocytes Absolute Auto 1.67 K/mm3 (0.9-3.2); Lymphocytes Percent Auto 28.1 % (18.3-44.2); Mean Corpuscular HGB Conc 32.2 g/dl (32-36); Mean Corpuscular Hemoglobin 28.1 pg (26-34); Mean Corpuscular Volume 87.2 fl (80-100); Mean Platelet Volume 10.5 fl (7.4-10.4); Monocytes Absolute Auto 0.6 K/mm3 (0.1-0.6); Monocytes Percent Auto 10.8 % (2.6-8.5); Neutrophils Absolute Auto 3.3 K/mm3 (1.3-6.7); Neutrophils Percent Auto 55.9 % (45.5-73.1); Platelet Count Result 175 k/mm3 (150-375); Red Blood Count 4.13 M/mm3 (4.2-5.4); Red Cell Distribution Width 14.9 % (11.5-14.5); White Blood Count 5.9 K/mm3 (4.5-10.0)
[2020-06-25 06:12] LABS: Alanine Aminotransferase 12 U/L (4-35); Albumin Level 3.5 g/dL (3.5-5.1); Alkaline Phosphatase 64 U/L (38-126); Anion Gap 3 mmol/L (8-16); Aspartate Amino Transferase 24 U/L (14-36); Bilirubin,Total 0.4 mg/dL (0.2-1.3); Blood Urea Nitrogen 21 mg/dL (7-17); Calcium 8.7 mg/dL (8.4-10.2); Carbon Dioxide 32 mmol/L (22-30); Chloride 106 mmol/L (98-107); Estimated CRCL calculation 40 ml/min; Estimated Glomerular Filt Rate 53; Glucose 106 mg/dL (65-105); Magnesium 1.8 mg/dL (1.6-2.3); Potassium 4.2 mmol/L (3.4-5.0); Sodium 141 mmol/L (137-145)
[2020-06-25] MEDS: ACETAMINOPHEN 325 MG TABLET 650 MG PO (08:39)
[2020-06-25] MEDS: PANTOPRAZOLE 40 MG TABLET PO (08:40)
[2020-06-25] MEDS: MIRABEGRON 50 MG ER TABLET PO (08:40)
[2020-06-25] MEDS: amLODIPine BESYLATE 5 MG TABLET 10 MG PO (08:40)
[2020-06-25] MEDS: METOPROLOL TARTRATE 25 MG TABLET PO (08:41)
--- NOTE | 2020-06-25 13:15 | PM.IMPN ---
Progress Note: A&P Assessment and Plan (1) Dizziness: Code(s): R42 - Dizziness and giddiness Status: Acute Assessment and Plan: Etiology is unclear at this point. Head CT was negative for acute intracranial abnormalities with chronic left posterior parietal infarcts. Brain MRI showed left parieto-occipital encephalomalacia and moderate size old infarct. Patient has a history of vertigo. Symptoms could be secondary to TIA. She was found to be orthostatic which could explain symptoms. Neurology has been consulted and recommendations are appreciated Continue meclizine prn Monitor symptoms closely (2) Acute UTI: Code(s): N39.0 - Urinary tract infection, site not specified Status: Acute Assessment and Plan: Urinalysis is abnormal. Patient endorses increased urgency. No fever or leukocytosis. Continue IV Rocephin, started on 06/24/20 Urine culture is pending. Await results. (3) Essential hypertension: Code(s): I10 - Essential (primary) hypertension Status: Acute Assessment and Plan: Blood pressure evaluated today and stable at 123/54. orthostatic hypotension is noted. Continue amlodipine and metoprolol HCTZ has been held (4) History of stroke with residual deficit: Code(s): I69.30 - Unspecified sequelae of cerebral infarction Status: Acute Assessment and Plan: Patient reports she has had 5 strokes. Most recent was January 2020. Does not appear to have any residual deficits besides poor memory. She is not on antiplatelet therapy. (5) Orthostatic hypotension: Code(s): I95.1 - Orthostatic hypotension Status: Acute Assessment and Plan: Noted to be orthostatic which may explain her symptoms, however she has been asymptomatic with positional changes. She appears adequately hydrated. Initiate ESTEPHANIA hose Fall precautions Monitor orthostatics daily (6) Grade II diastolic dysfunction: Code(s): I51.9 - Heart disease, unspecified Status: Acute Assessment and Plan: She appears euvolemic. Continue metorprolol and xarelto. Subjective Date/time seen: 06/25/20 13:15 Interval history: Date of service: 06/25/2020 Leticia Nguyen is an 84 year old female with a history of CVA and HTN who is seen in follow up for dizziness. She reports that her symptoms have improved and she is eager for discharge home. She denies headache or confusion. She has ambulated to the restroom with assistance which does not cause any subsequent dizziness or lightheadedness. She is comfortable at rest. She denies weakness. No numbness or tingling. Denies visual changes, dysphagia, speech changes, loss of coordination, or problems with balance. She denies dysuria or hematuria but does report increased urgency. She denies abdominal pain, nausea, vomiting, fever, chills, cough, shortness of breath, chest pain, or palpitations. Review of Systems Review of Systems: Narrative: 12 systems reviewed with pertinent positives and negatives as per HPI. Exam Narrative: Exam Narrative: Ms. Nguyen is a well-nourished, well-appearing 84-year-old female who is lying semi-recumbent in bed. She appears comfortable and is in NARD. HR 68, BP 123/54, RR 18, T 98.7, 97% on room air Neuro: awake, alert and oriented x4, speech clear, no focal neuro deficits noted, bilateral welt stitch cleaner strength equal, strength 5/5 throughout, no pronator drift HEENMT: normocephalic, atraumatic, face symmetric, EOMI, sclerae anicteric, moist oral mucosa, tongue midline, nares patent Neck: supple, no lymphadenopathy Respiratory: clear to auscultation bilaterally, nonlabored breathing Cardio: regular rate, regular rhythm with S1-S2 Abdomen: nondistended, normoactive bowel sounds, soft, nontender to palpation, no rigidity or guarding Extremities: scant pedal edema, no erythema, cyanosis, clubbing, or tenderness to palpation, DP pulses 2+ bilaterally Skin: no rashe
--- NOTE | 2020-06-25 13:41 | WPDNEURCNPN ---
Assessment and Plan Assessment and plan (1) Orthostatic hypotension: Code(s): I95.1 - Orthostatic hypotension Status: Acute (2) History of DVT (deep vein thrombosis): Code(s): Z86.718 - Personal history of other venous thrombosis and embolism Status: Chronic (3) Acute UTI: Code(s): N39.0 - Urinary tract infection, site not specified Status: Acute (4) Lower extremity edema: Code(s): R60.0 - Localized edema Status: Acute (5) Headache: Code(s): R51 - Headache Status: Acute (6) Essential hypertension: Code(s): I10 - Essential (primary) hypertension Status: Acute (7) History of stroke with residual deficit: Code(s): I69.30 - Unspecified sequelae of cerebral infarction Status: Acute Additional Plan continue the present medical management and she is here will be happy to follow Consult date: 06/25/20 Time Seen: 13:00 HPI: Leticia Nguyen is a 84 year old female who is right-handed and I am consulted for vertiginous dizziness which has been present even before the stroke she suffered from back in January of 2020 the records were reviewed the patient is doing fine and denies any lateralizing focal weakness but she feels fatigue and tired she denies any headache and dizziness and vertiginous episodes has been fairly common even before the last stroke the brain MRI reveals parieto-occipital encephalomalacia and known acute findings her previous carotid Doppler showed some blockage so there is room for us do a CTA of the carotid and the brain on the other hand patient is neurological stable Review of Systems Review of Systems: All systems reviewed & are unremarkable except as noted in HPI and below PMFSH Past Medical History Medical History Chronic bronchitis PFTs May 2018 demonstrating mild restrictive him [id number] obstructive disease of the small airways CVA (cerebral vascular accident) multiple x5, most recent in 01/2020 Essential hypertension With prior hospitalizations for malignant hypertension in 2018 GERD (gastroesophageal reflux disease) History of DVT (deep vein thrombosis) Right popliteal vein 2015 on long-term anticoagulation with Xarelto History of stroke with residual deficit Overactive bladder Seasonal rhinitis TIA (transient ischemic attack) With negative MRI December 2015 Urinary incontinence, mixed Vertigo Surgical History Surgical History H/O foot surgery BL H/O repair of rotator cuff Left History of appendectomy History of bilateral breast biopsy With benign pathology History of bilateral cataract extraction History of bladder suspension procedure With subsequent revision History of cardiac catheterization 16 years ago that was reportedly negative History of left knee replacement January 2012 History of spinal surgery cages is sacroiliac in right side History of total hysterectomy with bilateral salpingo-oophorectomy (BSO) Family History Family History Son Diabetes mellitus Enlarged heart Son Enlarged heart Father Pancreatic cancer Sibling Cancer Mother Emphysema lung Social History Social History Social History: Primary care physician: Dr. 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 She is independent in activities of daily living. She has 4 children. Her daughter and son-in-law live locally. Two of her sons live in [place] in the oldest son lives in [place]. her daughter Florencia
[2020-06-25] MEDS: RIVAROXABAN 20 MG TABLET PO (17:45)
[2020-06-26] VITALS (7 sets, daily range): BP systolic 131–151; BP diastolic 72–82; PULSE 61–73; RESP 20; TEMP 36.9; O2SAT 99
[2020-06-26 06:27] LABS: Hematocrit 34.3 % (37.0-47.0); Hemoglobin 11.1 g/dL (12.0-15.0); Mean Corpuscular HGB Conc 32.4 g/dl (32-36); Mean Corpuscular Hemoglobin 27.2 pg (26-34); Mean Corpuscular Volume 84.1 fl (80-100); Mean Platelet Volume 10.5 fl (7.4-10.4); Platelet Count Result 183 k/mm3 (150-375); Red Blood Count 4.08 M/mm3 (4.2-5.4); Red Cell Distribution Width 14.5 % (11.5-14.5); White Blood Count 6.1 K/mm3 (4.5-10.0)
[2020-06-26 06:37] LABS: Anion Gap 4 mmol/L (8-16); Blood Urea Nitrogen 20 mg/dL (7-17); Calcium 8.9 mg/dL (8.4-10.2); Carbon Dioxide 30 mmol/L (22-30); Chloride 104 mmol/L (98-107); Estimated CRCL calculation 45 ml/min; Estimated Glomerular Filt Rate 60; Glucose 106 mg/dL (65-105); Potassium 3.9 mmol/L (3.4-5.0); Sodium 138 mmol/L (137-145)
[2020-06-26] MEDS: amLODIPine BESYLATE 5 MG TABLET 10 MG PO (08:32)
[2020-06-26] MEDS: METOPROLOL TARTRATE 25 MG TABLET PO (08:32)
[2020-06-26] MEDS: PANTOPRAZOLE 40 MG TABLET PO (08:33)
[2020-06-26] MEDS: MIRABEGRON 50 MG ER TABLET PO (08:33)
--- NOTE | 2020-06-26 10:42 | PM.DS ---
DS: Admitting Diagnosis Admitting Diagnosis Admitting Diagnosis: DIZZINESS,ATAXIA DS: Discharge Diagnosis Discharge Diagnosis (1) Dizziness: Code(s): R42 - Dizziness and giddiness Status: Acute Assessment and Plan: [place] to be vertiginous in nature, which has been chronic for some time. Head CT was negative for acute intracranial abnormalities with chronic left posterior parietal infarcts. Brain MRI showed left parieto-occipital encephalomalacia and moderate size old infarct. She was found to be orthostatic which could partially contribute to her symptoms. She was seen in consultation by neurology and head and neck MRA were performed at neurology recommendations. Brain MRA showed mild scattered cerebral atherosclerosis and neck MRA showed 45% stenosis of proximal right ICA and 0% stenosis of proximal left ICA. She will continue meclizine as needed and follow up with neurology. (2) Acute UTI: Code(s): N39.0 - Urinary tract infection, site not specified Status: Acute Assessment and Plan: Urinalysis was abnormal. She endorsed increased urgency. She did not have fever, leukocytosis, or other signs/symptoms of infection. Urine culture grew >100,000 CFU Klebsiella. She was started on IV Rocephin and transitioned to PO Cefdinir to complete a 5 day course. Preliminary BCx had NGTD and final cultures will be monitored. (3) Essential hypertension: Code(s): I10 - Essential (primary) hypertension Status: Acute Assessment and Plan: Blood pressure was monitored closely and remained generally well controlled. She will continue amlodipine and metoprolol. HCTZ was held as it was felt to possible contribute to orthostasis/dizziness. I recommended she monitor her blood pressures at home and record for PCP review, so that it can be determined if this medication can be discontinued and if alternate agent is required. (4) Orthostatic hypotension: Code(s): I95.1 - Orthostatic hypotension Status: Acute Assessment and Plan: Noted to be mildly orthostatic which may contribute to her symptoms. She previously noted that her dizziness only occurred at rest but later stated she experienced symptoms with positional changes. She was given IV fluids and appeared adequately hydrated. ESTEPHANIA hose were applied. Blood pressure readings improved. We discussed maintaining adequate hydration and avoiding overheating. She will continue with compression stockings. Fall precautions were discussed. (5) History of stroke: Code(s): Z86.73 - Personal history of transient ischemic attack (TIA), and cerebral infarction without residual deficits Status: Acute Assessment and Plan: Patient reports she has had 5 strokes. Most recent was January 2020. Does not appear to have any residual deficits besides poor memory. She was not currently on antiplatelet therapy. After discussion with Dr. Hill, she was started on 81 mg aspirin daily. (6) Grade II diastolic dysfunction: Code(s): I51.9 - Heart disease, unspecified Status: Acute Assessment and Plan: Last echo January 2020 showed EF 65-70% with grade II diastolic dysfunction. She appeared euvolemic. Continue metoprolol. DS: Summary Hospital Course Reason for hospitalization: Dizziness Hospital Course: Date of admission: 06/24/2020 Date of discharge: 06/26/2020 Leticia Nguyen is an 84 year old female with a history of CVA, HTN, DVT, and vertigo who presented to the emergency department on 06/24/2020 with complaints of dizziness that had been ongoing for 2 days that was not improved by meclizine. She was feeling off balance and was needing to steady herself on the wall. At presentation, BP 149/79, additional VSS and she was afebrile, CBC within normal limits, electrolytes stable, glucose 112, troponin <0.012, UA abnormal, CXR with no cardiopulmonary disease, and head CT with no acute intracranial abnormality and chronic left poste
== END 2020-06-26 11:40 | disposition home or self-care (01) ==
LOC: ANHED 13:04 → ANH3MEDSUR 13:28
PROVIDERS: Nurse Practitioner; Physician Assistant; Admitting Provider Family Medicine; Emergency Provider Emergency Medicine; PCP Internal Medicine; Visit Provider Internal Medicine
DX: R42 Dizziness and giddiness (principal); I95.1 Orthostatic hypotension; N39.0 Urinary tract infection, site not specified; R60.0 Localized edema; R51.9 Headache, unspecified; I11.9 Hypertensive heart disease without heart failure; J44.9 Chronic obstructive pulmonary disease, unspecified; N39.46 Mixed incontinence; K21.9 Gastro-esophageal reflux disease without esophagitis; Z79.01 Long term (current) use of anticoagulants; Z86.73 Personal history of transient ischemic attack (TIA), and cerebral infarction without residual deficits; Z86.718 Personal history of other venous thrombosis and embolism
CPT/HCPCS: 36415; 70450; 70544; 70547; 70551; 71045; 80048; 80053; 81001; 82948; 83735; 84443; 84484; 85025; 85027; 85610; 85730; 87040; 87077; 87086; 87088; 87186; 93005; 94640; 96361; 96365; 99285; A9270; G0378; J0696; J7030

== ENCOUNTER 2020-07-28 08:22 | Outpatient (CLI) | payer MEDICARE, MEDICAID, SELFPAY ==
--- NOTE | ~2020-07-28 | US_ITS ---
US arterial ankle brachial ind INDICATION: Peripheral vascular disease TECHNIQUE: Segmental pressures and plethysmographic and Doppler waveforms of the brachial and lower e xtremity arteries were obtained. COMPARISON: None. FINDINGS: Right and left brachial artery pressures of 156 mm Hg and 141 mm Hg, respectively, are concordant (no rmal difference <= 30 mmHg). The right ankle-brachial index (ALEXANDRE) is 0.83 (normal >= 0.9-1.0). The right great toe-brachial index (TBI) is 0.38 (normal >= 0.60). The left ALEXANDRE is 0.94. The left TBI is 0.44. IMPRESSION: 1. Diminished right ALEXANDRE and bilateral toe brachial indices, consistent with mild-moderate peripheral arterial disease. Reviewed, dictated and finalized at location A. [employer] IMPRESSION: 1. Diminished right ALEXANDRE and bilateral toe brachial indices, consistent with mil d-moderate peripheral arterial disease.
== END 2020-07-28 08:23 | disposition home or self-care (01) ==
PROVIDERS: PCP Internal Medicine; Visit Provider Internal Medicine
DX: I70.203 Unspecified atherosclerosis of native arteries of extremities, bilateral legs (principal)
CPT/HCPCS: 93922

== ENCOUNTER 2020-08-07 11:56 | Inpatient (IN) | payer MEDICARE, MEDICAID, SELFPAY ==
[2020-08-07] VITALS (12 sets, daily range): BP systolic 95–151; BP diastolic 49–73; PULSE 68–122; RESP 4–20; TEMP 36.7–37.3; O2SAT 91–97; BMI 34.7
--- NOTE | ~2020-08-07 | CT_ITS ---
EXAMINATION: CT chest abdomen pelvis wo con DATE: 08/07/2020 13:10 [employer] INDICATION: Nausea, vomiting and shortness of breath. Cough. TECHNIQUE: Computed tomography (CT) of the chest, abdomen, and pelvis was performed without intraveno us contrast. The dose-length product was 1326.31 mGy-cm. Automated exposure control and iterative rec onstruction technique were employed. COMPARISON: CT dated 06/25/2018 FINDINGS: CHEST CT: No thoracic lymphadenopathy. No significant pleural or pericardial effusion. Borderline heart size. 5 mm right lower lobe nodule unchanged, probably benign. There are are areas of interlobular septal t hickening, likely chronic. No endobronchial lesions. No pneumothorax. ABDOMEN/PELVIS CT: The liver, spleen, pancreas, adrenal glands and kidneys are unremarkable. No renal/ureteral stones. T here is nonspecific mesenteric stranding in the left upper abdomen. No significant hydronephrosis. Bl adder is decompressed. There is mild thickening of the duodenum. Small fat-containing umbilical herni a. Moderate thoracic and lumbar spondylosis. Wedge-shaped appearance to T11, likely chronic. No free air or free fluid. IMPRESSION: 1. Thickening of the duodenum, suspicious for duodenitis, possibly infectious or inflammatory. Reacti ve changes secondary to pancreatitis are not entirely excluded. Correlate clinically. 2: Coarse interstitial changes of the lung periphery which have progressed since prior examination, p ossibly developing pulmonary fibrosis. 3: Stable benign 5 mm right lower lobe nodule. Reviewed, dictated and finalized at location A. [employer] IMPRESSION: 1. Thickening of the duodenum, suspicious for duodenitis, possibly infectious o r inflammatory. Reactive changes secondary to pancreatitis are not entirely exc luded. Correlate clinically. 2: Coarse interstitial changes of the lung periphery which have progressed sinc e prior examination, possibly developing pulmonary fibrosis. 3: Stable benign 5 mm right lower lobe nodule.
[2020-08-07 12:16] LABS: Basophils Absolute Auto 0.1 K/mm3 (0.0-0.1); Basophils Percent Auto 0.3 % (0.2-1.2); Eosinophils Absolute Auto 1.4 K/mm3 (0-0.3); Eosinophils Percent Auto 7.3 % (0-4.4); Hematocrit 36.6 % (37.0-47.0); Immature Granulocyte Absolute 0.27 K/mm3 (0.00-0.031); Immature Granulocyte Percent A 1.5 % (0-0.5); Lymphocytes Absolute Auto 0.65 K/mm3 (0.9-3.2); Lymphocytes Percent Auto 3.5 % (18.3-44.2); Mean Corpuscular HGB Conc 32.8 g/dl (32-36); Mean Corpuscular Hemoglobin 28.2 pg (26-34); Mean Corpuscular Volume 85.9 fl (80-100); Mean Platelet Volume 10.7 fl (7.4-10.4); Monocytes Absolute Auto 0.7 K/mm3 (0.1-0.6); Monocytes Percent Auto 3.6 % (2.6-8.5); Neutrophils Absolute Auto 15.5 K/mm3 (1.3-6.7); Neutrophils Percent Auto 83.8 % (45.5-73.1); Platelet Count Result 112 k/mm3 (150-375); Red Blood Count 4.26 M/mm3 (4.2-5.4); Red Cell Distribution Width 15.3 % (11.5-14.5); White Blood Count 18.4 K/mm3 (4.5-10.0)
[2020-08-07] MEDS: LACTATED RINGERS 1,000 ML 999 ML IV CONT (12:25)
--- NOTE | 2020-08-07 12:30 | ED.NAVMDI ---
HPI - Nausea/Vomiting/Diarrhea General Chief complaint: Nausea/Vomiting/Diarrhea Stated complaint: sick case Time Seen by Provider: 08/07/20 12:14 Source: patient Mode of arrival: ambulatory Limitations: no limitations History of Present Illness HPI Narrative: Patient is an 84-year-old female complaining of nausea vomiting diarrhea, cough, body aches, weakness, subjective fever, abdominal pain and shortness of breath started approximately 1 week ago. Patient states I think I have Covid . Patient's vomitus is nonbilious nonbloody. Patient's diarrhea is loose watery nonbloody. Related Data Home Medications Medication Instructions Recorded Confirmed metoprolol tartrate 25 mg tablet 25 mg PO DAILY 07/16/19 06/24/20 Allergies Allergy/AdvReac Type Severity Reaction Status Date / Time codeine Allergy Intermediate Swelling Verified 08/07/20 11:57 of Lip/Tongue/Throat shellfish derived Allergy Intermediate SWELLING Verified 08/07/20 11:57 fish derived Allergy Unknown SWELLING Verified 08/07/20 11:57 Review of Systems Review of Systems: All systems reviewed & are unremarkable except as noted in HPI and below Constitutional: Constitutional: Denies body ache(s), Denies chills, Denies excessive sweating, Denies fatigue, Denies fever(s), Denies headache(s) and Denies weight loss Eyes: Eyes: Denies blurry vision, Denies change in vision and Denies loss of vision ENT: Denies dizziness, Denies ear discharge, Denies headache(s), Denies lip swelling, Denies epistaxis, Denies nasal congestion, Denies neck pain, Denies throat swelling and Denies tongue swelling Cardiovascular: Cardiovascular: Denies chest pain, Denies chest pain at rest, Denies chest pain with activity, Denies diaphoresis, Denies rapid heart rate, Denies edema, Denies irregular heart rhythm, Denies lightheadedness, Denies palpitations, Denies dyspnea and Denies dyspnea on exertion Respiratory: Respiratory: Denies chest congestion, Denies cough, Denies hemoptysis, Denies dyspnea and Denies dyspnea on exertion Gastrointestinal: Gastrointestinal: Denies melena, Denies hematochezia and Denies hematemesis Musculoskeletal: Musculoskeletal: Denies abnormal gait, Denies deformity, Denies joint swelling, Denies limited range of motion, Denies neck pain and Denies numbness Neurologic: Denies Abnormal speech present, Denies abnormal gait, Denies confusion, Denies dizziness, Denies headache(s), Denies focal weakness, Denies loss of vision, Denies numbness, Denies Other visual disturbances and Denies Sensory deficit (Neuro) Psychiatric: Psychiatric: Denies confusion, Denies depression, Denies auditory hallucinations, Denies homicidal ideation and Denies suicidal ideation Endocrine: Endocrine: Denies cold intolerance, Denies excessive sweating, Denies fatigue, Denies heat intolerance and Denies palpitations Hematologic/Lymphatic: Hematologic/Lymphatic: Denies easy bleeding and Denies easy bruising Allergic/Immunologic: Allergic/Immunologic: Denies lip swelling, Denies throat swelling and Denies tongue swelling PMFSH Past Medical History Medical History (Updated 08/07/20 @ 15:30 by Chas Alvarenga MD) Chronic bronchitis PFTs May 2018 demonstrating mild restrictive him [id number] 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
[2020-08-07 12:33] LABS: Add Urine Microscopic? YES; Appearance Urine Turbid (Clear); Bilirubin Urine Negative (Negative); Blood Urine 2+ (Negative); Color Urine Yellow (Yellow); Glucose Urine UA Negative (Negative); Hyaline Casts Urine 20-29 /lpf; Ketones Urine Negative (Negative); Leukocyte Esterase Ur 3+ LEU/UL (Negative); Mucus Urine Few /lpf; Nitrate Urine Negative (Negative); Protein Urine 3+ mg/dL (Negative); Specific Grav Ur 1.014 (1.001-1.035); Squamous Epithelial Cell Urine Occasional /hpf (Few); Urobilinogen Urine Negative mg/dL (<2.0); WBC Urine >75 /hpf
[2020-08-07 12:34] LABS: Alanine Aminotransferase 16 U/L (4-35); Albumin Level 3.7 g/dL (3.5-5.1); Alkaline Phosphatase 120 U/L (38-126); Anion Gap 10 mmol/L (8-16); Aspartate Amino Transferase 31 U/L (14-36); Bilirubin,Total 0.8 mg/dL (0.2-1.3); Blood Urea Nitrogen 41 mg/dL (7-17); Calcium 8.7 mg/dL (8.4-10.2); Carbon Dioxide 26 mmol/L (22-30); Chloride 105 mmol/L (98-107); Estimated CRCL calculation 22 ml/min; Estimated Glomerular Filt Rate 25; Glucose 130 mg/dL (65-105); Lipase 16 U/L (23-300); Potassium 2.7 mmol/L (3.4-5.0); Sodium 141 mmol/L (137-145)
[2020-08-07] MEDS: ONDANSETRON INJ 4 MG/2 ML VIAL IV PUSH ×2 (12:45→20:42)
[2020-08-07] MEDS: MORPHINE SULFATE (*CRX) 2 MG/ML INJ IV PUSH (12:45)
--- NOTE | 2020-08-07 14:10 | PC.NURSE ---
call received from pt daughter Ana, updates given
[2020-08-07] MEDS: KCL 20 MEQ/D5/0.45% SOD CHL 1,000 ML 125 ML IV CONT (14:15)
[2020-08-07] MEDS: POTASSIUM CHLORIDE 20 MEQ PACKET (FOR LIQUID) 40 MEQ PO (14:15)
[2020-08-07] MEDS: SODIUM CHLORIDE 0.9% IV 1,000 ML 999 ML IV CONT (15:19)
[2020-08-07] MEDS: metroNIDAZOLE 500 MG/ISO 100ML 500 MG/100 ML BAG 100 MG IVPB ×2 (15:53→22:38)
--- NOTE | 2020-08-07 16:00 | PC.NURSE ---
CALLED PT DAUGHTER VIRI PER PT REQUEST. UPDATES GIVEN
--- NOTE | 2020-08-07 16:07 | PC.NURSE ---
CALLED IMU TO GIVE REPORT. STATES RN WILL CALL BACK TO GET REPORT
--- NOTE | 2020-08-07 16:57 | ADMGEN ---
This patient, Leticia Nguyen, was admitted to IMU Room 211-01. Patient/family oriented to hospital policies and general routines including ID bracelet, bed and alarms, visiting hours, pain management, procedures, bathroom and other care routines, personal items, smoking policy, room service/diet, and visiting hours. Information on how to activate the Rapid Response Team has been discussed. Patient/Family are encouraged to report perceived risks to care and to ask questions if they do not understand what they are told or what they should do.
[2020-08-07 18:57] LABS: Anion Gap 7 mmol/L (8-16); Blood Urea Nitrogen 44 mg/dL (7-17); Carbon Dioxide 24 mmol/L (22-30); Chloride 106 mmol/L (98-107); Estimated CRCL calculation 21 ml/min; Estimated Glomerular Filt Rate 24; Glucose 122 mg/dL (65-105); Potassium 3.5 mmol/L (3.4-5.0); Sodium 137 mmol/L (137-145)
--- NOTE | 2020-08-07 20:14 | PM.IMHP ---
H&P: HPI History of Present Illness Date/Time: 08/07/20 20:14 Chief complaint: SEPSIS/AKHIL/UTI Narrative: Leticia Nguyen is a 84 year old female who has a history of having several strokes in the past she said at least 6. The patient has recovered fully and has no residual. She also has frequent UTIs. Her last admission on 06/26/2020 her urine culture grew out a greater than 100,000 CFU Klebsiella. She was started on Rocephin and then transition to p.o. Ceftin or her blood cultures were negative today. The patient stated that she developed some diarrhea after eating Thanksgiving at her daughter's house. She was nauseated at that time. She had no fever chills. The nausea and vomiting and diarrhea went away briefly. And then came back. She has been feeling ill for at least 1 week. She has been complaining of nausea vomiting diarrhea, cough body aches and weakness. The patient has been complaining of shortness of breath release 1 week. The patient stated that she thought she had COVID. She stated that she has been around her grandson and her son who have all had COVID-19. CT scan of the chest abdomen and pelvis was read as thickening of the duodenum suspicious for duodenitis possibly infectious or inflammatory reactive changes secondary to pancreatitis are not entirely excluded correlate clinically. Coarse interstitial changes of the lumbar and a looked progressed since prior examination. Stable benign 5 mm right lower lobe nodule. The patient was also found to have UTI and was started on Rocephin. She was started on Rocephin and Flagyl for possible bacterial duodenitis. 2.7 and was supplement in the emergency room is now 3.5 patient also has acute kidney injury with her creatinine of 1.9 and then 2.0 which is normal on any other day. Covid 19 test is pending. The patient was placed in isolation. She stated she has not had diarrhea stools and she has been at the hospital. Patient was admitted into inpatient status on the date of service 08/07/2020 Review of Systems Review of Systems: All systems reviewed & are unremarkable except as noted in HPI and below Constitutional: Constitutional: Reports as per HPI and Reports no additional constitutional complaints Eyes: Eyes: Reports as per HPI and Reports no additional eye complaints ENT: Reports system reviewed and no additional complaints, except as documented and Reports Normal hearing present Cardiovascular: Cardiovascular: Reports no additional cardiovascular complaints Respiratory: Respiratory: Reports no additional respiratory complaints and Reports no additional respiratory complaints Gastrointestinal: Gastrointestinal: Reports as per HPI and Reports no additional gastrointestinal complaints Musculoskeletal: Musculoskeletal: Reports no additional musculoskeletal complaints Integumentary/Breasts: Skin/Breast: Reports system reviewed and no additional complaints, except as docu and Reports as per HPI Neurologic: Reports system reviewed and no additional complaints, except as documented, Reports as per HPI and Reports Normal hearing present Psychiatric: Psychiatric: Reports no additional psychiatric complaints and Reports as per HPI Endocrine: Endocrine: Reports no additional endocrine complaints Hematologic/Lymphatic: Hematologic/Lymphatic: Reports no additional hematologic/lymphatic complaints Allergic/Immunologic: Allergic/Immunologic: Reports no additional allergic/immunologic complaints PMFSH Past Medical History Medical History (Updated 08/07/20 @ 20:34 by Cari El NP) Chronic bronchitis PFTs May 2018 demonstrating mild restrictive him [id number] 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, Essential hypertension With prior hospitalizations for malignant hypertension in 2019 GERD (gastroesophageal reflux disease) History of DVT (deep vein thrombosis) Right popliteal vein 2015 on long-term anticoagulati
[2020-08-07] MEDS: HYOSCYAMINE SULFATE 0.0625 MG TABLET PO (20:45)
[2020-08-07] MEDS: PANTOPRAZOLE SODIUM IV 40 MG VIAL IV PUSH (21:48)
[2020-08-07 23:32] LABS: SARS-CoV-2 RNA PCR Negative
[2020-08-08] VITALS (13 sets, daily range): BP systolic 89–133; BP diastolic 47–59; PULSE 66–99; RESP 16–22; TEMP 36.2–36.7; O2SAT 95–98
[2020-08-08 04:33] LABS: Basophils Absolute Auto 0.1 K/mm3 (0.0-0.1); Basophils Percent Auto 0.4 % (0.2-1.2); Immature Granulocyte Absolute 3.13 K/mm3 (0.00-0.031); Immature Granulocyte Percent A 14.3 % (0-0.5); Lymphocytes Absolute Auto 0.71 K/mm3 (0.9-3.2); Lymphocytes Percent Auto 3.3 % (18.3-44.2); Mean Corpuscular HGB Conc 33.3 g/dl (32-36); Mean Corpuscular Hemoglobin 28.3 pg (26-34); Mean Platelet Volume 11.8 fl (7.4-10.4); Monocytes Absolute Auto 1.4 K/mm3 (0.1-0.6); Monocytes Percent Auto 6.4 % (2.6-8.5); Neutrophils Absolute Auto 16.5 K/mm3 (1.3-6.7); Neutrophils Percent Auto 75.6 % (45.5-73.1); Platelet Count Result 86 k/mm3 (150-375); Red Blood Count 3.53 M/mm3 (4.2-5.4); Red Cell Distribution Width 15.7 % (11.5-14.5); White Blood Count 21.8 K/mm3 (4.5-10.0)
[2020-08-08 04:58] LABS: Alanine Aminotransferase 13 U/L (4-35); Albumin Level 2.8 g/dL (3.5-5.1); Alkaline Phosphatase 114 U/L (38-126); Anion Gap 8 mmol/L (8-16); Aspartate Amino Transferase 28 U/L (14-36); Bilirubin,Total 0.5 mg/dL (0.2-1.3); Blood Urea Nitrogen 46 mg/dL (7-17); Calcium 7.5 mg/dL (8.4-10.2); Carbon Dioxide 22 mmol/L (22-30); Chloride 104 mmol/L (98-107); Estimated CRCL calculation 18 ml/min; Estimated Glomerular Filt Rate 20; Glucose 157 mg/dL (65-105); Magnesium 1.3 mg/dL (1.6-2.3); Potassium 3.1 mmol/L (3.4-5.0); Sodium 134 mmol/L (137-145)
[2020-08-08 05:21] LABS: CRP 21.2 mg/dL (<1.0)
[2020-08-08 05:28] LABS: Lipase < 10 U/L (23-300)
[2020-08-08 05:38] LABS: Thyroid Stimulating Hormone Reflex 0.667 uIU/mL (0.465-4.68)
[2020-08-08] MEDS: metroNIDAZOLE 500 MG/ISO 100ML 500 MG/100 ML BAG 100 MG IVPB ×3 (05:52→17:04)
[2020-08-08] MEDS: KCL 40 MEQ/D5/0.9% SOD CHL 1,000 ML 83 ML IV CONT ×2 (07:42→20:59)
[2020-08-08] MEDS: CITALOPRAM HYDROBROMIDE 10 MG TABLET PO (07:47)
[2020-08-08] MEDS: PANTOPRAZOLE SODIUM IV 40 MG VIAL IV PUSH ×2 (07:47→20:55)
[2020-08-08] MEDS: MIRABEGRON 50 MG ER TABLET PO (07:47)
[2020-08-08] MEDS: ASPIRIN 81 MG CHEWABLE TABLET PO (07:47)
[2020-08-08] MEDS: HYOSCYAMINE SULFATE 0.0625 MG TABLET PO ×2 (07:48→17:07)
[2020-08-08 08:19] LABS: Glucose Point of Care 106 (65-105)
--- NOTE | 2020-08-08 10:05 | PM.IMPN ---
Progress Note: A&P Assessment and Plan (1) Suspected COVID-19 virus infection: Code(s): Z20.828 - Contact with and (suspected) exposure to other viral communicable diseases Status: Acute Assessment and Plan: The patient was swabbed for COVID-19 and is on room air. She complained of feeling short of breath the last week but is not requiring any oxygen at this time. She is in isolation and will continue to monitor for results. In the meantime will check her CRP and her liver function test. Also check ferritin levels. (2) Nausea vomiting and diarrhea: Code(s): R11.2 - Nausea with vomiting, unspecified; R19.7 - Diarrhea, unspecified Status: Acute Assessment and Plan: Will get stool specimens. I did order for Zofran and IV fluids. Patient was empirically started on Rocephin and Flagyl for the possibility of bacterial duodenitis. Continue to monitor electrolytes. Blood cultures. Continue with Protonix. (3) Urinary tract infection: Qualifiers: Hematuria presence: without hematuria Urinary tract infection type: site unspecified Qualified Code(s): N39.0 - Urinary tract infection, site not specified Code(s): N39.0 - Urinary tract infection, site not specified Status: Acute Assessment and Plan: Continue with Rocephin. Her last admission she had Klebsiella growing in her urine culture. Repeat cultures. (4) History of stroke: Code(s): Z86.73 - Personal history of transient ischemic attack (TIA), and cerebral infarction without residual deficits Status: Acute Assessment and Plan: No residuals noted. (5) Overactive bladder: Code(s): N32.81 - Overactive bladder Status: Acute Assessment and Plan: Continue with Myrbetriq if formulary. (6) Essential hypertension: Code(s): I10 - Essential (primary) hypertension Status: Acute Assessment and Plan: Hold hydrochlorothiazide since she has acute kidney injury. Continue with amlodipine. Continue with metoprolol. (7) Hypokalemia: Code(s): E87.6 - Hypokalemia Status: Acute Assessment and Plan: Her potassium was replaced and is now normal. Patient had been on hydrochlorothiazide as well. She had the nausea vomiting and diarrhea. (8) History of DVT (deep vein thrombosis): Code(s): Z86.718 - Personal history of other venous thrombosis and embolism Status: Chronic Assessment and Plan: Continue with Xarelto. (9) Acute kidney failure, unspecified: Qualifiers: Acute renal failure type: unspecified Qualified Code(s): N17.9 - Acute kidney failure, unspecified Code(s): N17.9 - Acute kidney failure, unspecified Status: Acute Assessment and Plan: Most likely dehydrated. Continue with IV fluids. May consider renal ultrasound if no improvement with fluids. Patient's creatinine went up to 2.0. I am holding hydrochlorothiazide. Subjective Date/time seen: 08/08/20 10:05 Interval history: patient was seen during the morning rounds today. Feeling slightly better, mild abdominal pain, no sob or chest pain,mood stable. Review of Systems Review of Systems: All systems reviewed & are unremarkable except as noted in HPI and below Constitutional: Constitutional: Reports as per HPI and Reports no additional constitutional complaints Eyes: Eyes: Reports as per HPI and Reports no additional eye complaints ENT: Reports system reviewed and no additional complaints, except as documented and Reports Normal hearing present Cardiovascular: Cardiovascular: Reports no additional cardiovascular complaints Respiratory: Respiratory: Reports no additional respiratory complaints and Reports no additional respiratory complaints Gastrointestinal: Gastrointestinal: Reports as per HPI and Reports no additional gastrointestinal complaints Musculoskeletal: Musculoskeletal: Reports no additional musculoskeletal complaints Integum
[2020-08-08] MEDS: ONDANSETRON INJ 4 MG/2 ML VIAL IV PUSH (12:28)
[2020-08-08] MEDS: RIVAROXABAN 20 MG TABLET PO (17:05)
[2020-08-08] MEDS: MECLIZINE HCL 25 MG TABLET PO (18:11)
[2020-08-09] MEDS: HYOSCYAMINE SULFATE 0.0625 MG TABLET PO (00:51)
[2020-08-09] MEDS: metroNIDAZOLE 500 MG/ISO 100ML 500 MG/100 ML BAG 100 MG IVPB ×4 (00:51→17:39)
--- NOTE | 2020-08-09 03:10 | PC.NURSE ---
This patient, Leticia Nguyen, was received from [[id number] ] on 08/09/20 at 0050. Patient/family oriented to unit policies and routines
[2020-08-09 05:42] LABS: Hematocrit 30.5 % (37.0-47.0); Hemoglobin 10.1 g/dL (12.0-15.0); Mean Corpuscular HGB Conc 33.1 g/dl (32-36); Mean Corpuscular Volume 84.5 fl (80-100); Mean Platelet Volume 12.4 fl (7.4-10.4); Platelet Count Result 95 k/mm3 (150-375); Red Blood Count 3.61 M/mm3 (4.2-5.4); Red Cell Distribution Width 15.6 % (11.5-14.5); White Blood Count 18.7 K/mm3 (4.5-10.0)
[2020-08-09 05:52] LABS: Anion Gap 9 mmol/L (8-16); Blood Urea Nitrogen 49 mg/dL (7-17); Calcium 7.7 mg/dL (8.4-10.2); Carbon Dioxide 20 mmol/L (22-30); Chloride 111 mmol/L (98-107); Estimated CRCL calculation 19 ml/min; Estimated Glomerular Filt Rate 20; Glucose 121 mg/dL (65-105); Potassium 3.4 mmol/L (3.4-5.0); Sodium 140 mmol/L (137-145)
[2020-08-09 06:00] VITALS: BP 111/61; PULSE 92; RESP 20; TEMP 36.3; O2SAT 98
--- NOTE | 2020-08-09 07:29 | PM.IMPN ---
Progress Note: A&P Assessment and Plan (1) Suspected COVID-19 virus infection: Code(s): Z20.828 - Contact with and (suspected) exposure to other viral communicable diseases Status: Acute Assessment and Plan: The patient was swabbed for COVID-19 and is on room air. She complained of feeling short of breath the last week but is not requiring any oxygen at this time. She is in isolation and will continue to monitor for results. In the meantime will check her CRP and her liver function test. Also check ferritin levels. (2) Nausea vomiting and diarrhea: Code(s): R11.2 - Nausea with vomiting, unspecified; R19.7 - Diarrhea, unspecified Status: Acute Assessment and Plan: Will get stool specimens. I did order for Zofran and IV fluids. Patient was empirically started on Rocephin and Flagyl for the possibility of bacterial duodenitis. Continue to monitor electrolytes. Blood cultures. Continue with Protonix. Will consult GI (3) Urinary tract infection: Qualifiers: Hematuria presence: without hematuria Urinary tract infection type: site unspecified Qualified Code(s): N39.0 - Urinary tract infection, site not specified Code(s): N39.0 - Urinary tract infection, site not specified Status: Acute Assessment and Plan: Continue with Rocephin. Her last admission she had Klebsiella growing in her urine culture. Repeat cultures. (4) History of stroke: Code(s): Z86.73 - Personal history of transient ischemic attack (TIA), and cerebral infarction without residual deficits Status: Acute Assessment and Plan: No residuals noted. (5) Overactive bladder: Code(s): N32.81 - Overactive bladder Status: Acute Assessment and Plan: Continue with Myrbetriq if formulary. (6) Essential hypertension: Code(s): I10 - Essential (primary) hypertension Status: Acute Assessment and Plan: Hold hydrochlorothiazide since she has acute kidney injury. Continue with amlodipine. Continue with metoprolol. (7) Hypokalemia: Code(s): E87.6 - Hypokalemia Status: Acute Assessment and Plan: Her potassium was replaced and is now normal. Patient had been on hydrochlorothiazide as well. She had the nausea vomiting and diarrhea. (8) History of DVT (deep vein thrombosis): Code(s): Z86.718 - Personal history of other venous thrombosis and embolism Status: Chronic Assessment and Plan: Continue with Xarelto. (9) Acute kidney failure, unspecified: Qualifiers: Acute renal failure type: unspecified Qualified Code(s): N17.9 - Acute kidney failure, unspecified Code(s): N17.9 - Acute kidney failure, unspecified Status: Acute Assessment and Plan: Most likely dehydrated. Continue with IV fluids. May consider renal ultrasound if no improvement with fluids. Patient's creatinine went up to 2.0. I am holding hydrochlorothiazide. Increase iv fluids Subjective Date/time seen: 08/09/20 07:29 Interval history: patient was seen during the morning rounds today. Feeling slightly better, mild abdominal pain, still has nausea, no sob or chest pain,mood stable. Review of Systems Review of Systems: All systems reviewed & are unremarkable except as noted in HPI and below Constitutional: Constitutional: Reports as per HPI and Reports no additional constitutional complaints Eyes: Eyes: Reports as per HPI and Reports no additional eye complaints ENT: Reports system reviewed and no additional complaints, except as documented and Reports Normal hearing present Cardiovascular: Cardiovascular: Reports no additional cardiovascular complaints Respiratory: Respiratory: Reports no additional respiratory complaints and Reports no additional respiratory complaints Gastrointestinal: Gastrointestinal: Reports as per HPI and Reports no additional gastrointestinal complaints Musculoskeletal: Musculoskeletal: Re
[2020-08-09] MEDS: amLODIPine BESYLATE 5 MG TABLET 10 MG PO (10:37)
[2020-08-09 10:38] VITALS: PULSE 88
[2020-08-09] MEDS: METOPROLOL TARTRATE 25 MG TABLET PO (10:38)
[2020-08-09] MEDS: guaiFENesin 600 MG/DEXTROMETHORPHAN 30 MG SR TAB 12 HR 1 TAB PO ×2 (10:38→20:52)
[2020-08-09] MEDS: ASPIRIN 81 MG CHEWABLE TABLET PO (10:38)
[2020-08-09] MEDS: CITALOPRAM HYDROBROMIDE 10 MG TABLET PO (10:38)
[2020-08-09] MEDS: MIRABEGRON 50 MG ER TABLET PO (10:39)
[2020-08-09] MEDS: PANTOPRAZOLE SODIUM IV 40 MG VIAL IV PUSH ×2 (10:39→20:52)
--- NOTE | 2020-08-09 12:35 | WPDGICN ---
Assessment and Plan Assessment and plan (1) Nausea vomiting and diarrhea: Code(s): R11.2 - Nausea with vomiting, unspecified; R19.7 - Diarrhea, unspecified Status: Acute Assessment and Plan: Patient appears to have gastroenteritis. Etiology unclear. Agree with stool cultures. Broad-spectrum antibiotics for now. Patient appears to have been dehydrated at the time of admission. An IV fluid rehydration encourage. We will monitor with you during the current stay. Invasive testing not felt warranted at this point. (2) History of stroke: Code(s): Z86.73 - Personal history of transient ischemic attack (TIA), and cerebral infarction without residual deficits Status: Acute (3) GERD (gastroesophageal reflux disease): Code(s): K21.9 - Gastro-esophageal reflux disease without esophagitis Status: Acute (4) History of esophageal dilatation: Code(s): Z98.890 - Other specified postprocedural states Status: Acute Assessment and Plan: Patient has assess history of esophageal web dilated in April. This suggests underlying acid reflux disease. Continuing proton pump inhibitor appears prudent. GI Consult Note Consult date/time: 08/09/20 12:35 HPI: Leticia Nguyen is a 84 year old female I am asked to see at the request of the hospitalist service. Patient reports developing diarrhea shortly after Thanksgiving. She states that has been trip particularly worse over last 1 week sometimes going to the bathroom 3 times an hour. She also has had some nausea vomiting. She became very weak and unable to walk on for this wheeze reason was taken to the hospital for admission. Patient denies any bleeding. She states pain is begun to improve. She no longer has nausea vomiting. Her family history noncontributory she denies any recent travel. No one else in the family is ill. 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, Essential hypertension With prior hospitalizations for malignant hypertension in 2019 GERD (gastroesophageal reflux disease) History of DVT (deep vein thrombosis) Right popliteal vein 2015 on long-term anticoagulation with Xarelto History of stroke with residual deficit Overactive bladder Seasonal rhinitis Spinal stenosis of lumbar region at multiple levels TIA (transient ischemic attack) With negative MRI December 2015 Urinary incontinence, mixed Vertigo Surgical History Surgical History H/O foot surgery BL H/O repair of rotator cuff Left History of appendectomy History of bilateral breast biopsy With benign pathology History of bilateral cataract extraction History of bladder suspension procedure With subsequent revision History of cardiac catheterization 16 years ago that was reportedly negative History of left knee replacement January 2012 History of spinal surgery cages is sacroiliac in right side History of total hysterectomy with bilateral salpingo-oophorectomy (BSO) Family History Family History Son Diabetes mellitus Enlarged heart Son Enlarged heart Father Pancreatic cancer Sibling Cancer Mother Emphysema lung Social History Social History Social History: Primary care physician: Dr. 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
[2020-08-09] MEDS: ONDANSETRON INJ 4 MG/2 ML VIAL IV PUSH ×2 (14:30→21:05)
[2020-08-09 16:00] VITALS: BP 116/60; PULSE 79; RESP 16; TEMP 36.6; O2SAT 97
[2020-08-09] MEDS: RIVAROXABAN 20 MG TABLET PO (17:39)
[2020-08-09 22:00] VITALS: BP 122/62; PULSE 90; RESP 18; TEMP 36.3; O2SAT 96
[2020-08-10] MEDS: metroNIDAZOLE 500 MG/ISO 100ML 500 MG/100 ML BAG 100 MG IVPB ×5 (00:10→23:45)
[2020-08-10 05:30] LABS: Hematocrit 31.4 % (37.0-47.0); Hemoglobin 10.4 g/dL (12.0-15.0); Immature Platelet Fraction Pct 6.2 % (0.9-11.2); Mean Corpuscular HGB Conc 33.1 g/dl (32-36); Mean Corpuscular Hemoglobin 28.2 pg (26-34); Mean Corpuscular Volume 85.1 fl (80-100); Mean Platelet Volume 11.6 fl (7.4-10.4); Platelet Count Result 97 k/mm3 (150-375); Red Blood Count 3.69 M/mm3 (4.2-5.4); Red Cell Distribution Width 15.6 % (11.5-14.5); White Blood Count 13.3 K/mm3 (4.5-10.0)
[2020-08-10 05:52] LABS: Alanine Aminotransferase 13 U/L (4-35); Albumin Level 2.8 g/dL (3.5-5.1); Alkaline Phosphatase 98 U/L (38-126); Anion Gap 5 mmol/L (8-16); Aspartate Amino Transferase 30 U/L (14-36); Bilirubin,Total 0.7 mg/dL (0.2-1.3); Blood Urea Nitrogen 33 mg/dL (7-17); Carbon Dioxide 23 mmol/L (22-30); Chloride 110 mmol/L (98-107); Estimated CRCL calculation 25 ml/min; Estimated Glomerular Filt Rate 29; Glucose 101 mg/dL (65-105); Potassium 3.2 mmol/L (3.4-5.0); Sodium 138 mmol/L (137-145)
[2020-08-10 06:00] VITALS: BP 117/44; PULSE 98; RESP 20; TEMP 36.4; O2SAT 98
[2020-08-10] MEDS: amLODIPine BESYLATE 5 MG TABLET 10 MG PO (08:35)
[2020-08-10] MEDS: guaiFENesin 600 MG/DEXTROMETHORPHAN 30 MG SR TAB 12 HR 1 TAB PO ×2 (08:36→20:49)
[2020-08-10] MEDS: CITALOPRAM HYDROBROMIDE 10 MG TABLET PO (08:36)
[2020-08-10] MEDS: ASPIRIN 81 MG CHEWABLE TABLET PO (08:36)
[2020-08-10 08:37] VITALS: PULSE 88
[2020-08-10] MEDS: METOPROLOL TARTRATE 25 MG TABLET PO (08:37)
[2020-08-10] MEDS: MIRABEGRON 50 MG ER TABLET PO (08:38)
[2020-08-10] MEDS: PANTOPRAZOLE SODIUM IV 40 MG VIAL IV PUSH (08:38)
--- NOTE | 2020-08-10 10:22 | WPDGIPROGNO ---
Progress Note: A&P Additional Plan Patient continues to complain of watery stools. Several times intermittently throughout the day at present time. She denies bleeding. Abdominal pain is lessened. No longer with nausea vomiting. Physical exam reveals abdomen to be obese bowel sounds present soft nontender no masses encountered. Impression 1. Diarrhea. Stool cultures still pending. Plan to continue broad-spectrum antibiotics but stool cultures with certainly be helpful. 2. Urinary tract infection evident. May contribute to her diarrhea as well. Subjective Date/time seen: 08/10/20 10:22 Objective Data Vital Signs Vital Signs: Vital Signs - 24 hr 08/09/20 10:38 08/09/20 16:00 08/09/20 22:00 Temperature 98 F 97.4 F L Pulse Rate 88 79 90 Respiratory Rate 16 18 Blood Pressure 116/60 122/62 Pulse Oximetry 97 96 08/10/20 06:00 08/10/20 08:37 Temperature 97.5 F L Pulse Rate 98 88 Respiratory Rate 20 Blood Pressure 117/44 L Pulse Oximetry 98 Intake/Output Intake/Output: Intake & Output 08/07/20 08/08/20 08/09/20 08/10/20 23:59 23:59 23:59 23:59 Intake Total 3400 1450 2920 920 Balance 3400 1450 2920 920 Meds/Results Medications: Active Medications Generic Name Dose Route Start Last Admin Trade Name Freq PRN Reason Stop Dose Admin Amlodipine Besylate 10 mg 08/08/20 09:00 08/10/20 08:35 Amlodipine Besylate 5 Mg Tablet PO 10 mg DAILY DARREN Administration Aspirin 81 mg 08/08/20 09:00 08/10/20 08:36 Aspirin 81 Mg Chewable Tablet PO 81 mg DAILY DARREN Administration Budesonide/Formoterol Fumarate 2 puff 08/07/20 20:00 08/10/20 08:48 Budesonide/Form 160-4.5 Mcg (*Sp) INHALATION 2 puff Q12HRT DARREN Administration Citalopram Hydrobromide 10 mg 08/08/20 09:00 08/10/20 08:36 Citalopram Hydrobromide 10 Mg Tablet PO 10 mg DAILY DARREN Administration Guaifenesin/Dextromethorphan 1 tab 08/09/20 09:00 08/10/20 08:36 Guaifenesin 600 Mg/Dextromethorphan 30 Mg Sr Tab 12 Hr PO 1 tab Q12HR DARREN Administration Hyoscyamine 0.0625 mg 08/07/20 19:12 08/09/20 00:51 Hyoscyamine Sulfate 0.0625 Mg Tablet PO 0.0625 mg Q4H PRN Administration Bladder Spasm Metronidazole 500 mg in 100 mls @ 100 mls/hr 08/07/20 23:00 08/10/20 07:00 Flagyl 500 Mg/Iso Soln 100 Ml IVPB Infused Q6HR DARREN Infusion Ceftriaxone Sodium/Dextrose 1 gm in 50 mls @ 100 mls/hr 08/08/20 14:00 08/09/20 14:57 Rocephin 1 Gm/D5w 50 Ml IVPB Infused Q24H DARREN Infusion Meclizine HCl 25 mg 08/07/20 20:38 08/08/20 18:11 Meclizine Hcl 25 Mg Tablet PO 25 mg TID PRN Administration dizziness Metoprolol Tartrate 25 mg 08/08/20 09:00 08/10/20 08:37 Metoprolol Tartrate 25 Mg Tablet PO 25 mg DAILY DARREN Administration Mirabegron 50 mg 08/08/20 09:00 08/10/20 08:38 Mirabegron 50 Mg Er Tablet PO 50 mg DAILY DARREN Administration Ondansetron HCl 4 mg 08/07/20 20:30 08/09/20 21:05 Ondansetron Inj 4 Mg/2 Ml Vial IV PUSH 4 mg Q4H PRN Administration Nausea And Vomiting Pantoprazole Sodium 40 mg 08/07/20 21:00 08/10/20 08:38 Pantoprazole Sodium Iv 40 Mg Vial IV PUSH 40 mg Q12HR DARREN Administration Rivaroxaban 20 mg 08/08/20 18:00 08/09/20 17:39 Rivaroxaban 20 Mg Tablet PO 20 mg QPM DARREN Administration Radiology Results: ITS Impressions Chest/Abdomen/Pelvis CT 08/07/20 13:10 IMPRESSION: 1. Thickening of the duodenum, suspicious for duodenitis, possibly infectious or inflammatory. Reactive changes secondary to pancreatitis are not entirely excluded. Correlate clinically. 2: Coarse interstitial changes of the lung periphery which have progressed since prior examination, possibly developing pulmonary fibrosis. 3: Stable benign 5 mm right lower lobe nodule. Labs Labs: Laboratory Results - last 24 hr 08/10/20 08/10/20 05:14 05:14 WBC 13.3 H RBC 3.69 L Hgb 10.4 L Hct 31.4 L MCV 85.1 MCH 28.2
--- NOTE | 2020-08-10 11:18 | PM.IMPN ---
Progress Note: A&P Assessment and Plan (1) Nausea vomiting and diarrhea: Code(s): R11.2 - Nausea with vomiting, unspecified; R19.7 - Diarrhea, unspecified Status: Acute Assessment and Plan: Awaiting stool culture,and BC, GI consult reviwed. Continue zofran and protonix. Continue IV flagyl and IV rocephin. Continue to monitor electolytes. (2) Urinary tract infection: Qualifiers: Hematuria presence: without hematuria Urinary tract infection type: site unspecified Qualified Code(s): N39.0 - Urinary tract infection, site not specified Code(s): N39.0 - Urinary tract infection, site not specified Status: Acute Assessment and Plan: Continue with Rocephin. UC is positive for Ecoli (3) History of stroke: Code(s): Z86.73 - Personal history of transient ischemic attack (TIA), and cerebral infarction without residual deficits Status: Acute Assessment and Plan: No deficits (4) Overactive bladder: Code(s): N32.81 - Overactive bladder Status: Acute Assessment and Plan: Continue with Myrbetriq if formulary. (5) Essential hypertension: Code(s): I10 - Essential (primary) hypertension Status: Acute Assessment and Plan: Continue with amlodipine. Continue with metoprolol. (6) Hypokalemia: Code(s): E87.6 - Hypokalemia Status: Acute Assessment and Plan: Potassium is 3.2 continue to replace. (7) History of DVT (deep vein thrombosis): Code(s): Z86.718 - Personal history of other venous thrombosis and embolism Status: Chronic Assessment and Plan: Continue with Xarelto. (8) Acute kidney failure, unspecified: Qualifiers: Acute renal failure type: unspecified Qualified Code(s): N17.9 - Acute kidney failure, unspecified Code(s): N17.9 - Acute kidney failure, unspecified Status: Acute Assessment and Plan: Most likely dehydrated. Give iv fluids Subjective Date/time seen: 08/10/20 11:18 Interval history: 84 year old female who has a history of having several strokes and frequent UTIs. Admitted with nausea since . Pt still having nausea and diarrhea. Seen by Gi DR Barker awaiting stool culture. Continue present care. Pt having alot of abdominal cramps, prefers not to have a colonscopy. No history of GERD, rectal bleeding or weight loss. Review of Systems Review of Systems: All systems reviewed & are unremarkable except as noted in HPI and below Exam Const: General: alert, awake and Physically active Orientation/consciousness: oriented to person, oriented to place, oriented to time and patient oriented x3 Eyes: Pupils: Equal, round and reactive pupils present and Pupil accommodation reflex normal EOM: EOMs intact bilaterally Neck: Lymphatic: no lymphadenopathy noted Chest: Chest palpation & inspection: normal inspection of the chest Resp: Effort & Inspection: normal respiratory effort Auscultation: clear to auscultation bilaterally Percussion: percussion normal Cardio: Palpation: normal PMI Rate: regular rate Rhythm: regular rhythm Heart sounds: S1 normal heart sound present and S2 normal heart sound present Peripheral pulses: Peripheral pulses 2+ throughout GI: Inspection: normal to inspection and other (mild generalized tenderness.) Auscultation: normal bowel sounds Skin: General skin exam: normal color Rashes: no rashes Neuro: General: oriented to person, oriented to place, oriented to time and patient oriented x3 Cranial nerves: Yes Equal, round and reactive pupils present and Yes Normal hearing present Cognition (Neuro): normal cognition Speech: normal speech Gait exam (Neuro): Normal gait present Motor exam (neuro): 5/5 motor strength present throughout Sensory Exam: normal sensation Extrem: General: normal to inspection Right upper extremity: normal to inspection Left upper extremity: normal to inspection Right lower extrem
[2020-08-10] MEDS: POTASSIUM CHLORIDE 20 MEQ PACKET (FOR LIQUID) PO (12:30)
[2020-08-10] MEDS: SODIUM CHLORIDE 0.9% IV 1,000 ML 70 ML IV CONT (12:30)
[2020-08-10 14:00] VITALS: BP 118/57; PULSE 73; RESP 19; TEMP 36.2; O2SAT 94
[2020-08-10] MEDS: RIVAROXABAN 20 MG TABLET PO (17:34)
[2020-08-10 20:00] VITALS: BP 141/74; PULSE 86; RESP 20; TEMP 36.3; O2SAT 98
[2020-08-11] MEDS: SODIUM CHLORIDE 0.9% IV 1,000 ML 70 ML IV CONT ×2 (03:48→20:21)
[2020-08-11 04:00] VITALS: BP 137/74; PULSE 92; RESP 20; TEMP 36.1; O2SAT 95
[2020-08-11] MEDS: metroNIDAZOLE 500 MG/ISO 100ML 500 MG/100 ML BAG 100 MG IVPB ×3 (06:31→18:12)
[2020-08-11 08:12] LABS: Anion Gap 6 mmol/L (8-16); Blood Urea Nitrogen 23 mg/dL (7-17); Calcium 7.8 mg/dL (8.4-10.2); Carbon Dioxide 22 mmol/L (22-30); Chloride 112 mmol/L (98-107); Estimated CRCL calculation 35 ml/min; Estimated Glomerular Filt Rate 43; Glucose 127 mg/dL (65-105); Sodium 140 mmol/L (137-145)
[2020-08-11] MEDS: ASPIRIN 81 MG CHEWABLE TABLET PO (08:35)
[2020-08-11] MEDS: amLODIPine BESYLATE 5 MG TABLET 10 MG PO (08:35)
[2020-08-11] MEDS: MIRABEGRON 50 MG ER TABLET PO (08:35)
[2020-08-11] MEDS: CITALOPRAM HYDROBROMIDE 10 MG TABLET PO (08:35)
[2020-08-11] MEDS: guaiFENesin 600 MG/DEXTROMETHORPHAN 30 MG SR TAB 12 HR 1 TAB PO ×2 (08:35→20:20)
[2020-08-11 08:36] VITALS: PULSE 89
[2020-08-11] MEDS: METOPROLOL TARTRATE 25 MG TABLET PO (08:36)
[2020-08-11] MEDS: POTASSIUM CHLORIDE 20 MEQ PACKET (FOR LIQUID) PO (08:37)
[2020-08-11] MEDS: PANTOPRAZOLE SODIUM IV 40 MG VIAL IV PUSH (08:55)
--- NOTE | 2020-08-11 10:28 | WPDGIPROGNO ---
Progress Note: A&P Additional Plan Patient reports that diarrhea is improving. She has less frequent stools. However they remain quite watery. Finally a stool sample has been sent for culture. Results are pending. Patient denies any bleeding or abdominal pain at this point. Physical exam reveals abdomen to be obese bowel sounds are present soft nontender with no organomegaly. Impression 1. Diarrhea. Etiology unclear. Infectious etiology suspected. Broad-spectrum antibiotics in progress. Plan to advance diet. Await results of stool culture. 2. Urinary tract infection. This may contribute to her diarrhea as well. 3. Obesity. Subjective Date/time seen: 08/11/20 10:28 Objective Data Vital Signs Vital Signs: Vital Signs - 24 hr 08/10/20 14:00 08/10/20 20:00 08/11/20 04:00 Temperature 97.2 F L 97.3 F L 97 F L Pulse Rate 73 86 92 Respiratory Rate 19 20 20 Blood Pressure 118/57 L 141/74 H 137/74 Pulse Oximetry 94 98 95 08/11/20 08:36 Temperature Pulse Rate 89 Respiratory Rate Blood Pressure Pulse Oximetry Intake/Output Intake/Output: Intake & Output 08/08/20 08/09/20 08/10/20 08/11/20 23:59 23:59 23:59 23:59 Intake Total 1450 2920 2900 1140 Balance 1450 2920 2900 1140 Meds/Results Medications: Active Medications Generic Name Dose Route Start Last Admin Trade Name Freq PRN Reason Stop Dose Admin Amlodipine Besylate 10 mg 08/08/20 09:00 08/11/20 08:35 Amlodipine Besylate 5 Mg Tablet PO 10 mg DAILY DARREN Administration Aspirin 81 mg 08/08/20 09:00 08/11/20 08:35 Aspirin 81 Mg Chewable Tablet PO 81 mg DAILY DARREN Administration Budesonide/Formoterol Fumarate 2 puff 08/07/20 20:00 08/11/20 08:35 Budesonide/Form 160-4.5 Mcg (*Sp) INHALATION 2 puff Q12HRT DARREN Administration Calcium Carbonate 200 mg 08/10/20 13:06 Calcium Carbonate (Tums) 500 Mg (200 Mg Elemental) PO Q6H PRN Indigestion Citalopram Hydrobromide 10 mg 08/08/20 09:00 08/11/20 08:35 Citalopram Hydrobromide 10 Mg Tablet PO 10 mg DAILY DARREN Administration Guaifenesin/Dextromethorphan 1 tab 08/09/20 09:00 08/11/20 08:35 Guaifenesin 600 Mg/Dextromethorphan 30 Mg Sr Tab 12 Hr PO 1 tab Q12HR DARREN Administration Hyoscyamine 0.0625 mg 08/07/20 19:12 08/09/20 00:51 Hyoscyamine Sulfate 0.0625 Mg Tablet PO 0.0625 mg Q4H PRN Administration Bladder Spasm Metronidazole 500 mg in 100 mls @ 100 mls/hr 08/07/20 23:00 08/11/20 07:07 Flagyl 500 Mg/Iso Soln 100 Ml IVPB Infused Q6HR DARREN Infusion Ceftriaxone Sodium/Dextrose 1 gm in 50 mls @ 100 mls/hr 08/08/20 14:00 08/10/20 14:42 Rocephin 1 Gm/D5w 50 Ml IVPB Infused Q24H DARREN Infusion Sodium Chloride 1,000 mls @ 70 mls/hr 08/10/20 11:40 08/11/20 03:48 Normal Saline Iv IV CONT 70 mls/hr .[id number] DARREN Administration Meclizine HCl 25 mg 08/07/20 20:38 08/08/20 18:11 Meclizine Hcl 25 Mg Tablet PO 25 mg TID PRN Administration dizziness Metoprolol Tartrate 25 mg 08/08/20 09:00 08/11/20 08:36 Metoprolol Tartrate 25 Mg Tablet PO 25 mg DAILY DARREN Administration Mirabegron 50 mg 08/08/20 09:00 08/11/20 08:35 Mirabegron 50 Mg Er Tablet PO 50 mg DAILY DARREN Administration Ondansetron HCl 4 mg 08/07/20 20:30 08/09/20 21:05 Ondansetron Inj 4 Mg/2 Ml Vial IV PUSH 4 mg Q4H PRN Administration Nausea And Vomiting Pantoprazole Sodium 40 mg 08/11/20 09:00 08/11/20 08:55 Pantoprazole Sodium Iv 40 Mg Vial IV PUSH 40 mg DAILY DARREN Administration Potassium Chloride 20 meq 08/11/20 09:00 08/11/20 08:37 Potassium Chloride 20 Meq Packet (For Liquid) PO 20 meq DAILY DARREN Administration Rivaroxaban 20 mg 08/08/20 18:00 08/10/20 17:34 Rivaroxaban 20 Mg Tablet PO 20 mg QPM DARREN Administration Radiology Results: ITS Impressions Chest/Abdomen/Pelvis CT 08/07/20 13:10 IMPRESSION: 1. Thickening of the duodenum, suyapa
[2020-08-11 14:00] VITALS: BP 115/66; PULSE 75; RESP 16; TEMP 36.6; O2SAT 95
--- NOTE | 2020-08-11 15:04 | PM.IMPN ---
Progress Note: A&P Assessment and Plan (1) Nausea vomiting and diarrhea: Code(s): R11.2 - Nausea with vomiting, unspecified; R19.7 - Diarrhea, unspecified Status: Acute Assessment and Plan: possible Gastroenteritisis Awaiting full stool culture results - CDiff toxin negative started on Probiotic Blood cultures GI consult reviewed Continue zofran and protonix and pepcid. Continue IV flagyl and IV rocephin. Continue to monitor electolytes with serial labs. monitor and control N/V/as patient has history of esophageal dilitation within the last year. (2) Urinary tract infection: Qualifiers: Hematuria presence: without hematuria Urinary tract infection type: site unspecified Qualified Code(s): N39.0 - Urinary tract infection, site not specified Code(s): N39.0 - Urinary tract infection, site not specified Status: Acute Assessment and Plan: 08/07 urine culture is positive for Ecoli Continue with IV Rocephin - sensitivities confirm choice. received doses on Aug. , 7, 8, continued monitoring I/Os and renal function labs continue IVFs hydration and oral clear idet checking blood cultures - no growth (3) History of stroke: Code(s): Z86.73 - Personal history of transient ischemic attack (TIA), and cerebral infarction without residual deficits Status: Acute Assessment and Plan: No deficits keep hydrated, monitor VS, SCDs ordered order PT/OT eval. once diarrhea controlled (4) Overactive bladder: Code(s): N32.81 - Overactive bladder Status: Acute Assessment and Plan: Continue with Myrbetriq if formulary. no concerns at this time patient denies painful or blood in urine (5) Essential hypertension: Code(s): I10 - Essential (primary) hypertension Status: Acute Assessment and Plan: Continue with amlodipine. Continue with metoprolol. VS stable HR 70-90s, regular rate and rhythm, SBP 130s (6) Hypokalemia: Code(s): E87.6 - Hypokalemia Status: Acute Assessment and Plan: Potassium is 3.2 continue to replace. ordered 40meq KCL IV peripherally continue IVFs repeat labwork in morning (7) History of DVT (deep vein thrombosis): Code(s): Z86.718 - Personal history of other venous thrombosis and embolism Status: Chronic Assessment and Plan: Continue with Xarelto. no localized pain, significant or unilateral swelling, no redness order PT/OT once GI interventions completed. keep well hydrated (8) Acute kidney failure, unspecified: Qualifiers: Acute renal failure type: unspecified Qualified Code(s): N17.9 - Acute kidney failure, unspecified Code(s): N17.9 - Acute kidney failure, unspecified Status: Acute Assessment and Plan: Acute Most likely dehydrated from prolonged and persistent N/V/D at home prior to admission. not chronic, in June, Creatinine was 0.9 Continuous IVFs and clear liquid diet for best hydration. GFR 43 Creatinine 1.7 BUN 23 today Avoid nephrotoxic medications keep MAPs >65 Subjective Date/time seen: 08/11/20 15:04 Interval history: 84 year old female, Leticia, who has a history of having several strokes and frequent UTIs. Admitted with nausea since . She is really uncertain if she had food poisoning or not. She denies eating any food that had been out for long periods of time and denies other family/friends with similar symptoms. Was having daily vomiting until a few days ago. Pt still having nausea and daily diarrhea. Consultation by GI DR Barker appreciated. Awaiting full stool culture results. Patient not vomiting today, tolerating clear liquid oral diet, not nauseated now, but continues to have frequent diarrhea. She has abdominal soreness and abdominal cramps, but prefers not to have a colonscopy. No history of GERD, rectal bleeding or weight loss. Review of Systems Review of Systems: All systems re
[2020-08-11 16:18] LABS: Magnesium 1.4 mg/dL (1.6-2.3); Phosphorus 2.9 mg/dL (2.5-4.5)
[2020-08-11 16:38] LABS: Hemoglobin A1C 5.3 % (<5.7)
[2020-08-11] MEDS: MAGNESIUM SULF 4 GM/WATER100ML 4 GM/100 ML BAG IVPB (17:11)
[2020-08-11] MEDS: RIVAROXABAN 20 MG TABLET PO (18:12)
[2020-08-11] MEDS: SACCHAROMYCES BOULARDII 250 MG CAPSULE PO (18:12)
[2020-08-11 20:00] VITALS: O2SAT 95
[2020-08-11] MEDS: FAMOTIDINE 20 MG/2 ML VIAL IV PUSH (20:20)
[2020-08-11 22:00] VITALS: BP 130/64; PULSE 87; RESP 18; TEMP 37; O2SAT 96
[2020-08-12] MEDS: metroNIDAZOLE 500 MG/ISO 100ML 500 MG/100 ML BAG 100 MG IVPB ×4 (00:25→17:30)
[2020-08-12 05:41] LABS: Basophils Absolute Auto 0.1 K/mm3 (0.0-0.1); Basophils Percent Auto 0.6 % (0.2-1.2); Eosinophils Absolute Auto 0.4 K/mm3 (0-0.3); Eosinophils Percent Auto 3.4 % (0-4.4); Hematocrit 30.7 % (37.0-47.0); Hemoglobin 10.2 g/dL (12.0-15.0); Immature Granulocyte Absolute 0.67 K/mm3 (0.00-0.031); Immature Granulocyte Percent A 6.5 % (0-0.5); Immature Platelet Fraction Pct 7.3 % (0.9-11.2); Lymphocytes Absolute Auto 1.42 K/mm3 (0.9-3.2); Lymphocytes Percent Auto 13.7 % (18.3-44.2); Mean Corpuscular HGB Conc 33.2 g/dl (32-36); Mean Corpuscular Hemoglobin 28.1 pg (26-34); Mean Corpuscular Volume 84.6 fl (80-100); Mean Platelet Volume 11.5 fl (7.4-10.4); Monocytes Absolute Auto 1.2 K/mm3 (0.1-0.6); Monocytes Percent Auto 11.5 % (2.6-8.5); Neutrophils Absolute Auto 6.6 K/mm3 (1.3-6.7); Neutrophils Percent Auto 64.3 % (45.5-73.1); Nucleated Red Blood Cells Perc 0.2 % (0.0-0.2); Platelet Count Result 124 k/mm3 (150-375); Red Blood Count 3.63 M/mm3 (4.2-5.4); Red Cell Distribution Width 15.3 % (11.5-14.5); White Blood Count 10.3 K/mm3 (4.5-10.0)
[2020-08-12] MEDS: HYOSCYAMINE SULFATE 0.0625 MG TABLET PO (05:54)
[2020-08-12 05:56] LABS: Anion Gap 6 mmol/L (8-16); Blood Urea Nitrogen 17 mg/dL (7-17); Calcium 7.7 mg/dL (8.4-10.2); Carbon Dioxide 22 mmol/L (22-30); Chloride 111 mmol/L (98-107); Estimated CRCL calculation 38 ml/min; Estimated Glomerular Filt Rate 48; Glucose 99 mg/dL (65-105); Magnesium 2.2 mg/dL (1.6-2.3); Potassium 3.4 mmol/L (3.4-5.0); Sodium 139 mmol/L (137-145)
[2020-08-12 06:00] VITALS: BP 134/63; PULSE 82; RESP 20; TEMP 36.7; O2SAT 98
[2020-08-12 06:03] LABS: NT Pro B Type Natriuretic Pept 6320 PG/ML (5-100)
[2020-08-12] MEDS: ASPIRIN 81 MG CHEWABLE TABLET PO (09:03)
[2020-08-12] MEDS: amLODIPine BESYLATE 5 MG TABLET 10 MG PO (09:03)
[2020-08-12] MEDS: PANTOPRAZOLE SODIUM IV 40 MG VIAL IV PUSH (09:04)
[2020-08-12] MEDS: MIRABEGRON 50 MG ER TABLET PO (09:04)
[2020-08-12] MEDS: SACCHAROMYCES BOULARDII 250 MG CAPSULE PO ×2 (09:04→17:29)
[2020-08-12] MEDS: FAMOTIDINE 20 MG/2 ML VIAL IV PUSH ×2 (09:04→20:04)
[2020-08-12] MEDS: guaiFENesin 600 MG/DEXTROMETHORPHAN 30 MG SR TAB 12 HR 1 TAB PO ×2 (09:04→20:04)
[2020-08-12] MEDS: CITALOPRAM HYDROBROMIDE 10 MG TABLET PO (09:04)
[2020-08-12 09:05] VITALS: PULSE 76
[2020-08-12] MEDS: METOPROLOL TARTRATE 25 MG TABLET PO (09:05)
[2020-08-12] MEDS: POTASSIUM CHLORIDE 20 MEQ TABLET.ER PO (10:26)
--- NOTE | 2020-08-12 10:50 | PM.IMPN ---
Progress Note: A&P Assessment and Plan (1) Nausea vomiting and diarrhea: Code(s): R11.2 - Nausea with vomiting, unspecified; R19.7 - Diarrhea, unspecified Status: Acute Assessment and Plan: possible Gastroenteritisis Awaiting full stool culture results - CDiff toxin negative started on Probiotic Blood cultures , WBC improved from 18.7 to 10.3 GI consult reviewed Continue zofran and protonix and pepcid. Continue IV flagyl and IV rocephin. Continue to monitor electolytes with serial labs. monitor and control N/V/as patient has history of esophageal dilitation within the last year. (2) Urinary tract infection: Qualifiers: Hematuria presence: without hematuria Urinary tract infection type: site unspecified Qualified Code(s): N39.0 - Urinary tract infection, site not specified Code(s): N39.0 - Urinary tract infection, site not specified Status: Acute Assessment and Plan: 08/07 urine culture is positive for Ecoli UTI Continue with IV Rocephin - sensitivities confirm choice. received doses on Aug. , , 8, 9, - would continue Antibiotic IV dosing until diarrhea has stopped. continued monitoring I/Os and renal function labs continue IVFs hydration and oral clear idet checking blood cultures - no growth (3) History of stroke: Code(s): Z86.73 - Personal history of transient ischemic attack (TIA), and cerebral infarction without residual deficits Status: Acute Assessment and Plan: No deficits keep hydrated, monitor VS, SCDs ordered order PT/OT eval. once diarrhea controlled (4) Overactive bladder: Code(s): N32.81 - Overactive bladder Status: Acute Assessment and Plan: Continue with Myrbetriq if formulary. no concerns at this time patient denies painful or blood in urine (5) Essential hypertension: Code(s): I10 - Essential (primary) hypertension Status: Acute Assessment and Plan: Continue with amlodipine. Continue with metoprolol. VS stable HR 70-90s, regular rate and rhythm, SBP 130s (6) Hypokalemia: Code(s): E87.6 - Hypokalemia Status: Acute Assessment and Plan: Potassium is 3.4 continue to replace. continue IVFs repeat labwork in morning (7) History of DVT (deep vein thrombosis): Code(s): Z86.718 - Personal history of other venous thrombosis and embolism Status: Chronic Assessment and Plan: Continue with Xarelto. no localized pain, significant or unilateral swelling, no redness order PT/OT once GI interventions completed. keep well hydrated (8) Acute kidney failure, unspecified: Qualifiers: Acute renal failure type: unspecified Qualified Code(s): N17.9 - Acute kidney failure, unspecified Code(s): N17.9 - Acute kidney failure, unspecified Status: Acute Assessment and Plan: Acute Most likely dehydrated from prolonged and persistent N/V/D at home prior to admission. not chronic, in June, Creatinine was 0.9 Continuous IVFs and clear liquid diet for best hydration. continues to IMPROVE. GFR 48 Creatinine 1.10 today Avoid nephrotoxic medications keep MAPs >65 (9) Pulmonary fibrosis: Code(s): J84.10 - Pulmonary fibrosis, unspecified Status: Acute Assessment and Plan: CT showed: Coarse interstitial changes of the lung periphery which have progressed since prior examination, possibly developing pulmonary fibrosis. Stable benign 5 mm right lower lobe nodule. on room air no cough did complain of mucous, resolved with Mucinex. follow-up with her primary care provider regarding the pulmonary fibrosis and right lower lobe nodule. (10) Pulmonary nodule seen on imaging study: Code(s): R91.1 - Solitary pulmonary nodule Status: Acute Assessment and Plan: CT showed: Coarse interstitial changes of the lung periphery which have progressed since prior examination, possibly developing pulmonary f
--- NOTE | 2020-08-12 10:50 | WPDGIPROGNO ---
Progress Note: A&P Additional Plan Patient continues to complain of intermittent diarrhea and frequent urination. Nursing staff reports she has done well over the last 24 hours. Less diarrhea noted by nursing staff. No fever no pain. Physical exam reveals her to be alert. Vital signs stable. Abdomen is obese. Bowel sounds are present she has some mild discomfort in the upper abdomen. Impression 1. Diarrhea. Suspect gastroenteritis. Stool cultures are pending. C difficile is negative. Agree with broad-spectrum antibiotics. Supportive care. Advance diet at this point. 2. Urinary tract infection. This may contribute to diarrhea. Cannot exclude diarrhea related antibiotics as well. Subjective Date/time seen: 08/12/20 10:50 Objective Data Vital Signs Vital Signs: Vital Signs - 24 hr 08/11/20 14:00 08/11/20 20:00 08/11/20 22:00 Temperature 97.9 F 98.6 F Pulse Rate 75 87 Respiratory Rate 16 18 Blood Pressure 115/66 130/64 Pulse Oximetry 95 95 96 08/12/20 06:00 08/12/20 09:05 Temperature 98.0 F Pulse Rate 82 76 Respiratory Rate 20 Blood Pressure 134/63 Pulse Oximetry 98 Intake/Output Intake/Output: Intake & Output 08/09/20 08/10/20 08/11/20 08/12/20 23:59 23:59 23:59 23:59 Intake Total 2920 2900 2980 1200 Balance 2920 2900 2980 1200 Meds/Results Medications: Active Medications Generic Name Dose Route Start Last Admin Trade Name Freq PRN Reason Stop Dose Admin Amlodipine Besylate 10 mg 08/08/20 09:00 08/12/20 09:03 Amlodipine Besylate 5 Mg Tablet PO 10 mg DAILY DARREN Administration Aspirin 81 mg 08/08/20 09:00 08/12/20 09:03 Aspirin 81 Mg Chewable Tablet PO 81 mg DAILY DARREN Administration Budesonide/Formoterol Fumarate 2 puff 08/07/20 20:00 08/11/20 20:20 Budesonide/Form 160-4.5 Mcg (*Sp) INHALATION 2 puff Q12HRT DARREN Administration Calcium Carbonate 200 mg 08/10/20 13:06 Calcium Carbonate (Tums) 500 Mg (200 Mg Elemental) PO Q6H PRN Indigestion Citalopram Hydrobromide 10 mg 08/08/20 09:00 08/12/20 09:04 Citalopram Hydrobromide 10 Mg Tablet PO 10 mg DAILY DARREN Administration Dextrose 12.5 gm 08/11/20 15:48 Dextrose 50% 25 Gm/50 Ml Syringe IV PUSH PRN PRN Hypoglycemia Protocol Famotidine 20 mg 08/11/20 21:00 08/12/20 09:04 Famotidine 20 Mg/2 Ml Vial IV PUSH 20 mg Q12HR DARREN Administration Glucagon 1 mg 08/11/20 15:48 Glucagon For Inj 1 Mg Vial IM PRN PRN Hypoglycemia Protocol Glucose 15 gm 08/11/20 15:48 Glucose Oral Gel 15 Gm Of Glucse In 37.5 Gm Tube PO PRN PRN Hypoglycemia Protocol Guaifenesin/Dextromethorphan 1 tab 08/09/20 09:00 08/12/20 09:04 Guaifenesin 600 Mg/Dextromethorphan 30 Mg Sr Tab 12 Hr PO 1 tab Q12HR DARREN Administration Hyoscyamine 0.0625 mg 08/07/20 19:12 08/12/20 05:54 Hyoscyamine Sulfate 0.0625 Mg Tablet PO 0.0625 mg Q4H PRN Administration Bladder Spasm Metronidazole 500 mg in 100 mls @ 100 mls/hr 08/07/20 23:00 08/12/20 06:55 Flagyl 500 Mg/Iso Soln 100 Ml IVPB Infused Q6HR DARREN Infusion Ceftriaxone Sodium/Dextrose 1 gm in 50 mls @ 100 mls/hr 08/08/20 14:00 08/11/20 15:48 Rocephin 1 Gm/D5w 50 Ml IVPB Infused Q24H DARREN Infusion Sodium Chloride 1,000 mls @ 70 mls/hr 08/10/20 11:40 08/11/20 20:21 Normal Saline Iv IV CONT 70 mls/hr .[id number] DARREN Administration Dextrose 1,000 mls @ 100 mls/hr 08/11/20 15:48 Dextrose 5% 1,000 Ml IVPB PRN PRN Hypoglycemia Protocol Meclizine HCl 25 mg 08/07/20 20:38 08/08/20 18:11 Meclizine Hcl 25 Mg Tablet PO 25 mg TID PRN Administration dizziness Metoprolol Tartrate 25 mg 08/08/20 09:00 08/12/20 09:05 Metoprolol Tartrate 25 Mg Tablet PO 25 mg DAILY DARREN Administration Mirabegron 50 mg 08/08/20 09:00 08/12/20 09:04 Mirabegron 50 Mg Er Tablet PO 50 mg DAILY DARREN Administration Ondansetro
[2020-08-12 14:00] VITALS: BP 106/59; PULSE 66; RESP 22; TEMP 36.6; O2SAT 99
[2020-08-12] MEDS: SODIUM CHLORIDE 0.9% IV 1,000 ML 70 ML IV CONT (15:51)
--- NOTE | 2020-08-12 16:09 | PCDIET ---
Nutrition Screen Complete: Goal: Meet nutrition needs Pt current nutrition is Regular Diet Nutrition recommendation: agree Last recorded weight is 91.8 kg. Bowel Motility: diarrhea reducing Labs Reviewed:BNP 6320, GFR 48 Meds Noted:Flagyl, S Boulardi, KCL, Protonix, Lopressor, Rocephin, Norvasc, Normal Saline Additional Notes: Pt admitted with N/V/D. Emesis gone now and diarrhea slowing per pt. Pt screen due to clear liquids 5+ days. Pt diet has now been advanced to regular. Edu provided on eating small portions, more frequently, choosing bland foods. Pt is tolerating food and keeping it down. We will continue to follow for adequate intake weekly.
[2020-08-12] MEDS: RIVAROXABAN 20 MG TABLET PO (17:30)
[2020-08-12 22:00] VITALS: BP 126/53; PULSE 70; RESP 20; TEMP 36.2; O2SAT 98
[2020-08-13] MEDS: metroNIDAZOLE 500 MG/ISO 100ML 500 MG/100 ML BAG 100 MG IVPB ×3 (00:04→12:39)
[2020-08-13 05:50] LABS: Basophils Absolute Auto 0.1 K/mm3 (0.0-0.1); Basophils Percent Auto 0.6 % (0.2-1.2); Eosinophils Absolute Auto 0.4 K/mm3 (0-0.3); Hematocrit 29.9 % (37.0-47.0); Hemoglobin 9.9 g/dL (12.0-15.0); Immature Granulocyte Absolute 0.66 K/mm3 (0.00-0.031); Immature Granulocyte Percent A 6.8 % (0-0.5); Lymphocytes Absolute Auto 1.59 K/mm3 (0.9-3.2); Lymphocytes Percent Auto 16.4 % (18.3-44.2); Mean Corpuscular HGB Conc 33.1 g/dl (32-36); Mean Corpuscular Hemoglobin 28.3 pg (26-34); Mean Corpuscular Volume 85.4 fl (80-100); Mean Platelet Volume 11.7 fl (7.4-10.4); Monocytes Percent Auto 9.8 % (2.6-8.5); Neutrophils Percent Auto 62.4 % (45.5-73.1); Platelet Count Result 154 k/mm3 (150-375); Red Cell Distribution Width 15.4 % (11.5-14.5); White Blood Count 9.7 K/mm3 (4.5-10.0)
[2020-08-13 05:58] LABS: Anion Gap 7 mmol/L (8-16); Blood Urea Nitrogen 18 mg/dL (7-17); Calcium 7.7 mg/dL (8.4-10.2); Carbon Dioxide 20 mmol/L (22-30); Chloride 112 mmol/L (98-107); Estimated CRCL calculation 38 ml/min; Estimated Glomerular Filt Rate 48; Glucose 94 mg/dL (65-105); Potassium 3.4 mmol/L (3.4-5.0); Sodium 139 mmol/L (137-145)
[2020-08-13 06:00] VITALS: BP 123/57; PULSE 72; RESP 18; TEMP 36.1; O2SAT 96
[2020-08-13 06:05] LABS: NT Pro B Type Natriuretic Pept 4100 PG/ML (5-100)
--- NOTE | 2020-08-13 08:38 | WPDGIPROGNO ---
Progress Note: A&P Additional Plan Patient reports no recent bowel movements. It appears diarrhea has resolved. Patient does complain of urinary incontinence. States she urinates rather frequently. Physical exam reveals her to be alert. Somewhat anxious. Lungs are clear. Abdomen is obese. Bowel sounds are present soft nontender. Labs reveal hemoglobin 10.1, impression 1. Diarrhea. Now resolved. Likely gastroenteritis. Continue broad-spectrum antibiotics for 7-10 day course. 2. Urinary tract infection. May account for her urinary incontinence. Primary care service is following in treating. Plan to advance to regular diet. Disposition per primary care service Subjective Date/time seen: 08/13/20 08:38 Objective Data Vital Signs Vital Signs: Vital Signs - 24 hr 08/12/20 09:05 08/12/20 14:00 08/12/20 22:00 Temperature 97.8 F 97.2 F L Pulse Rate 76 66 70 Respiratory Rate 22 H 20 Blood Pressure 106/59 L 126/53 L Pulse Oximetry 99 98 08/13/20 06:00 Temperature 97.0 F L Pulse Rate 72 Respiratory Rate 18 Blood Pressure 123/57 L Pulse Oximetry 96 Intake/Output Intake/Output: Intake & Output 08/10/20 08/11/20 08/12/20 08/13/20 23:59 23:59 23:59 23:59 Intake Total 2900 2980 4120 700 Balance 2900 2980 4120 700 Meds/Results Medications: Active Medications Generic Name Dose Route Start Last Admin Trade Name Freq PRN Reason Stop Dose Admin Amlodipine Besylate 10 mg 08/08/20 09:00 08/12/20 09:03 Amlodipine Besylate 5 Mg Tablet PO 10 mg DAILY DARREN Administration Aspirin 81 mg 08/08/20 09:00 08/12/20 09:03 Aspirin 81 Mg Chewable Tablet PO 81 mg DAILY DARREN Administration Budesonide/Formoterol Fumarate 2 puff 08/07/20 20:00 08/12/20 20:04 Budesonide/Form 160-4.5 Mcg (*Sp) INHALATION 2 puff Q12HRT DARREN Administration Calcium Carbonate 200 mg 08/10/20 13:06 Calcium Carbonate (Tums) 500 Mg (200 Mg Elemental) PO Q6H PRN Indigestion Citalopram Hydrobromide 10 mg 08/08/20 09:00 08/12/20 09:04 Citalopram Hydrobromide 10 Mg Tablet PO 10 mg DAILY DARREN Administration Dextrose 12.5 gm 08/11/20 15:48 Dextrose 50% 25 Gm/50 Ml Syringe IV PUSH PRN PRN Hypoglycemia Protocol Famotidine 20 mg 08/11/20 21:00 08/12/20 20:04 Famotidine 20 Mg/2 Ml Vial IV PUSH 20 mg Q12HR DARREN Administration Glucagon 1 mg 08/11/20 15:48 Glucagon For Inj 1 Mg Vial IM PRN PRN Hypoglycemia Protocol Glucose 15 gm 08/11/20 15:48 Glucose Oral Gel 15 Gm Of Glucse In 37.5 Gm Tube PO PRN PRN Hypoglycemia Protocol Guaifenesin/Dextromethorphan 1 tab 08/09/20 09:00 08/12/20 20:04 Guaifenesin 600 Mg/Dextromethorphan 30 Mg Sr Tab 12 Hr PO 1 tab Q12HR DARREN Administration Hyoscyamine 0.0625 mg 08/07/20 19:12 08/12/20 05:54 Hyoscyamine Sulfate 0.0625 Mg Tablet PO 0.0625 mg Q4H PRN Administration Bladder Spasm Metronidazole 500 mg in 100 mls @ 100 mls/hr 08/07/20 23:00 08/13/20 07:10 Flagyl 500 Mg/Iso Soln 100 Ml IVPB Infused Q6HR DARREN Infusion Ceftriaxone Sodium/Dextrose 1 gm in 50 mls @ 100 mls/hr 08/08/20 14:00 08/12/20 15:38 Rocephin 1 Gm/D5w 50 Ml IVPB Infused Q24H DARREN Infusion Sodium Chloride 1,000 mls @ 70 mls/hr 08/10/20 11:40 08/12/20 20:08 Normal Saline Iv IV CONT Not Given .[id number] DARREN Dextrose 1,000 mls @ 100 mls/hr 08/11/20 15:48 Dextrose 5% 1,000 Ml IVPB PRN PRN Hypoglycemia Protocol Meclizine HCl 25 mg 08/07/20 20:38 08/08/20 18:11 Meclizine Hcl 25 Mg Tablet PO 25 mg TID PRN Administration dizziness Metoprolol Tartrate 25 mg 08/08/20 09:00 08/12/20 09:05 Metoprolol Tartrate 25 Mg Tablet PO 25 mg DAILY DARREN Administration Mirabegron 50 mg 08/08/20 09:00 08/12/20 09:04 Mirabegron 50 Mg Er Tablet PO 50 mg DAILY DARREN Administration Ondansetron HCl 4 mg 08/07/20 20:30 12
[2020-08-13] MEDS: amLODIPine BESYLATE 5 MG TABLET 10 MG PO (09:31)
[2020-08-13] MEDS: PANTOPRAZOLE SODIUM IV 40 MG VIAL IV PUSH (09:32)
[2020-08-13] MEDS: ASPIRIN 81 MG CHEWABLE TABLET PO (09:32)
[2020-08-13] MEDS: CITALOPRAM HYDROBROMIDE 10 MG TABLET PO (09:32)
[2020-08-13] MEDS: FAMOTIDINE 20 MG/2 ML VIAL IV PUSH (09:33)
[2020-08-13 09:34] VITALS: PULSE 81
[2020-08-13] MEDS: guaiFENesin 600 MG/DEXTROMETHORPHAN 30 MG SR TAB 12 HR 1 TAB PO (09:34)
[2020-08-13] MEDS: METOPROLOL TARTRATE 25 MG TABLET PO (09:34)
[2020-08-13] MEDS: MIRABEGRON 50 MG ER TABLET PO (09:36)
[2020-08-13] MEDS: SACCHAROMYCES BOULARDII 250 MG CAPSULE PO (09:37)
[2020-08-13] MEDS: POTASSIUM CHLORIDE 20 MEQ TABLET.ER PO (09:42)
[2020-08-13] MEDS: POTASSIUM CHLORIDE 20 MEQ TABLET PO (09:55)
--- NOTE | 2020-08-13 12:25 | PM.DS ---
DS: Admitting Diagnosis Admitting Diagnosis Admitting Diagnosis: SEPSIS/AKHIL/UTI DS: Discharge Diagnosis Discharge Diagnosis (1) Pulmonary nodule seen on imaging study: Code(s): R91.1 - Solitary pulmonary nodule Status: Acute (2) Pulmonary fibrosis: Code(s): J84.10 - Pulmonary fibrosis, unspecified Status: Acute (3) Hypokalemia: Code(s): E87.6 - Hypokalemia Status: Acute (4) Urinary tract infection: Qualifiers: Hematuria presence: without hematuria Urinary tract infection type: site unspecified Qualified Code(s): N39.0 - Urinary tract infection, site not specified Code(s): N39.0 - Urinary tract infection, site not specified Status: Acute (5) Duodenitis: Code(s): K29.80 - Duodenitis without bleeding Status: Acute (6) Acute kidney failure, unspecified: Qualifiers: Acute renal failure type: unspecified Qualified Code(s): N17.9 - Acute kidney failure, unspecified Code(s): N17.9 - Acute kidney failure, unspecified Status: Acute (7) Chronic diarrhea: Code(s): K52.9 - Noninfective gastroenteritis and colitis, unspecified Status: Acute DS: Summary Hospital Course Reason for hospitalization: Leticia Nguyen is a 84 year old female who has a history of having several strokes in the past she said at least 6. The patient has recovered fully and has no residual. She also has frequent UTIs. Her last admission on 06/26/2020 her urine culture grew out a greater than 100,000 CFU Klebsiella. She was started on Rocephin and then transition to p.o. Ceftin or her blood cultures were negative today. The patient stated that she developed some diarrhea after eating Thanksgiving at her daughter's house. She was nauseated at that time. She had no fever chills. The nausea and vomiting and diarrhea went away briefly. And then came back. She has been feeling ill for at least 1 week. She has been complaining of nausea vomiting diarrhea, cough body aches and weakness. The patient has been complaining of shortness of breath release 1 week. The patient stated that she thought she had COVID. She stated that she has been around her grandson and her son who have all had COVID-19. CT scan of the chest abdomen and pelvis was read as thickening of the duodenum suspicious for duodenitis possibly infectious or inflammatory reactive changes secondary to pancreatitis are not entirely excluded correlate clinically. Coarse interstitial changes of the lumbar and a looked progressed since prior examination. Stable benign 5 mm right lower lobe nodule. The patient was also found to have UTI and was started on Rocephin. She was started on Rocephin and Flagyl for possible bacterial duodenitis. 2.7 and was supplement in the emergency room is now 3.5 patient also has acute kidney injury with her creatinine of 1.9 and then 2.0 which is normal on any other day. Covid 19 test is pending. The patient was placed in isolation. She stated she has not had diarrhea stools and she has been at the hospital. Patient was admitted into inpatient status on the date of service 08/07/2020 Hospital Course: Patient was admitted to the hospital initially with sepsis answer on antibiotic therapy with Rocephin. She had a CT scan of the chest abdomen pelvis due to chest pain and abdominal pain which demonstrated thickening of the duodenum suspicious for duodenitis. Her lipase was checked and was normal with pancreatitis being less likely. She was started on Flagyl treat for possible duodenitis. She reports that she had chronic diarrhea and had continued to have numerous loose stools while she was hospitalized that mostly occur after she eats. But her symptoms had improved after IV fluid hydration. She initially was noted have acute on chronic kidney injury but her creatinine improved after IV fluid hydration. She is still reports that she feels weak but feels she is ready to go home.
[2020-08-13] MEDS: LOPERAMIDE HCL 2 MG CAPSULE 4 MG PO (12:39)
[2020-08-13] MEDS: CHOLESTYRAMINE LIGHT 4 GM POWD.PACK PO (13:56)
[2020-08-13 14:00] VITALS: BP 125/65; PULSE 64; RESP 14; TEMP 36.4; O2SAT 100
== END 2020-08-13 17:02 | disposition home health service (06) | DRG 690 ==
LOC: ANHED 15:41 → ANHIMU 15:57 → ANH2MED 08-10 14:07 → ANHIMU 08-16 15:49
PROVIDERS: Family Medicine; General Practice; Internal Medicine Gastroenterology; Nurse Practitioner; Admitting Provider Internal Medicine; Emergency Provider Emergency Medicine; PCP Internal Medicine; Visit Provider Nurse Practitioner
DX: N39.0 Urinary tract infection, site not specified (principal); N17.9 Acute kidney failure, unspecified; B96.20 Unspecified Escherichia coli [E. coli] as the cause of diseases classified elsewhere; Z20.828 Contact with and (suspected) exposure to other viral communicable diseases; K29.80 Duodenitis without bleeding; K52.9 Noninfective gastroenteritis and colitis, unspecified; E87.6 Hypokalemia; K21.9 Gastro-esophageal reflux disease without esophagitis; N32.81 Overactive bladder; N39.46 Mixed incontinence; J42 Unspecified chronic bronchitis; J84.10 Pulmonary fibrosis, unspecified; R91.1 Solitary pulmonary nodule; I10 Essential (primary) hypertension; R42 Dizziness and giddiness; E66.9 Obesity, unspecified; Z68.34 Body mass index [BMI] 34.0-34.9, adult; Z96.652 Presence of left artificial knee joint; Z23 Encounter for immunization; Z79.01 Long term (current) use of anticoagulants; Z79.82 Long term (current) use of aspirin; Z79.899 Other long term (current) drug therapy; Z86.718 Personal history of other venous thrombosis and embolism; Z86.73 Personal history of transient ischemic attack (TIA), and cerebral infarction without residual deficits; Z87.440 Personal history of urinary (tract) infections; Z98.42 Cataract extraction status, left eye; Z98.41 Cataract extraction status, right eye; Z98.890 Other specified postprocedural states
CPT/HCPCS: 36415; 51701; 71250; 74176; 80048; 80053; 81001; 82728; 83036; 83690; 83735; 83880; 84100; 84443; 85025; 85027; 85055; 86140; 87015; 87040; 87045; 87046; 87077; 87086; 87088; 87177; 87186; 87209; 87269; 87272; 87324; 87427; 87635; 89055; 90471; 90653; 94640; 96361; 96365; 96375; 97110; 97161; 97165; 97530; 99285; A9270; C9113; C9803; G0008; J0131; J0696; J2270; J2405; J3475; J3480; J7030; J7120; U0003

== ENCOUNTER 2020-08-23 10:25 | Outpatient (NON) | payer MEDICARE, SELFPAY ==
[2020-08-23 13:02] LABS: Anion Gap 4 mmol/L (8-16); Blood Urea Nitrogen 15 mg/dL (7-17); Calcium 8.8 mg/dL (8.4-10.2); Carbon Dioxide 29 mmol/L (22-30); Chloride 107 mmol/L (98-107); Estimated Glomerular Filt Rate 53; Glucose 100 mg/dL (65-105); Sodium 140 mmol/L (137-145)
== END 2020-08-23 10:26 ==
LOC: HOME HLTH 10:28
PROVIDERS: PCP Internal Medicine; Visit Provider Internal Medicine
DX: N39.0 Urinary tract infection, site not specified (principal); J84.10 Pulmonary fibrosis, unspecified; K29.80 Duodenitis without bleeding; N17.9 Acute kidney failure, unspecified
CPT/HCPCS: 80048

== ENCOUNTER 2020-10-09 21:05 | Emergency (ER) | payer MEDICARE, SELFPAY ==
--- NOTE | ~2020-10-09 | CT_ITS ---
EXAMINATION: CT abdomen pelvis wo con DATE: 10/09/2020 22:29 INDICATION: Low abdominal pain. TECHNIQUE: Computed tomography (CT) of the abdomen and pelvis was performed without intravenous contr ast. Automated exposure control and iterative reconstruction technique were employed. The dose-length product was 764.86 mGy-cm. COMPARISON: CT abdomen and pelvis 08/07/2020 FINDINGS: The visualized portions of the lung bases demonstrate peripheral septal thickening, consist ent with chronic lung disease. There are new peripheral patchy groundglass opacities in right lower l obe, right middle lobe, and lingula. No pleural effusion. Cardiomegaly is noted. No pericardial effus ion. The liver, spleen, pancreas, gallbladder, adrenal glands, and kidneys are normal. There is no ur olithiasis. There is diverticulosis of the colon without evidence of diverticulitis. There are no dil ated loops of bowel. The appendix is not visualized. There is a small sliding hiatal hernia containin g fat. There is prominent fat in the inguinal canals bilaterally that may be hernias. Pelvic floor re laxation is noted. In the lower abdomen superficial to the abdominal musculature, there is a thick-wa lled 2.0 x 3.4 x 0.5 cm fluid collection. There is internal fixation of right sacroiliac joint. There is severe thoracolumbar spondylosis. There is a chronic compression fracture of T11. IMPRESSION: 1. New peripheral patchy groundglass opacities in the right lower lobe, right middle lobe, and lingul a, consistent with pneumonia (such as COVID-19 pneumonia). 2. Chronic small thick-walled fluid collection superficial to the low abdominal musculature, most lik bassem a seroma. 3. Pelvic floor relaxation. Reviewed, dictated and finalized at location A. [employer] OPERATOR IMPRESSION: 1. New peripheral patchy groundglass opacities in the right lower lobe, right m iddle lobe, and lingula, consistent with pneumonia (such as COVID-19 pneumonia) . 2. Chronic small thick-walled fluid collection superficial to the low abdominal musculature, most likely a seroma. 3. Pelvic floor relaxation.
[2020-10-09 21:07] VITALS: BP 168/81; PULSE 73; RESP 18; TEMP 36.8; O2SAT 100
[2020-10-09 21:41] LABS: Lactic Acid Reflex 0.9 mmol/L (0.7-2.1)
[2020-10-09 21:42] LABS: Alanine Aminotransferase 17 U/L (4-35); Albumin Level 3.9 g/dL (3.5-5.1); Alkaline Phosphatase 65 U/L (38-126); Anion Gap 6 mmol/L (8-16); Aspartate Amino Transferase 40 U/L (14-36); Bilirubin,Total 0.6 mg/dL (0.2-1.3); Blood Urea Nitrogen 26 mg/dL (7-17); Calcium 8.6 mg/dL (8.4-10.2); Carbon Dioxide 24 mmol/L (22-30); Chloride 106 mmol/L (98-107); Estimated CRCL calculation 36 ml/min; Estimated Glomerular Filt Rate 48; Glucose 100 mg/dL (65-105); Potassium 4.2 mmol/L (3.4-5.0); Sodium 136 mmol/L (137-145)
[2020-10-09 21:45] LABS: Basophils Percent Auto 0.3 % (0.2-1.2); Eosinophils Percent Auto 0.3 % (0-4.4); Hematocrit 35.5 % (37.0-47.0); Hemoglobin 11.5 g/dL (12.0-15.0); Immature Granulocyte Absolute 0.01 K/mm3 (0.00-0.031); Immature Granulocyte Percent A 0.3 % (0-0.5); Lymphocytes Absolute Auto 1.11 K/mm3 (0.9-3.2); Lymphocytes Percent Auto 27.9 % (18.3-44.2); Mean Corpuscular HGB Conc 32.4 g/dl (32-36); Mean Corpuscular Hemoglobin 28.3 pg (26-34); Mean Corpuscular Volume 87.4 fl (80-100); Mean Platelet Volume 10.9 fl (7.4-10.4); Monocytes Absolute Auto 0.5 K/mm3 (0.1-0.6); Monocytes Percent Auto 11.8 % (2.6-8.5); Neutrophils Absolute Auto 2.4 K/mm3 (1.3-6.7); Neutrophils Percent Auto 59.4 % (45.5-73.1); Platelet Count Result 186 k/mm3 (150-375); Red Blood Count 4.06 M/mm3 (4.2-5.4); Red Cell Distribution Width 15.5 % (11.5-14.5)
[2020-10-09 22:02] LABS: Add Urine Microscopic? YES; Appearance Urine Clear (Clear); Bilirubin Urine Negative (Negative); Blood Urine Negative (Negative); Color Urine Yellow (Yellow); Glucose Urine UA Negative (Negative); Ketones Urine Trace mg/dL (Negative); Leukocyte Esterase Ur Negative LEU/UL (Negative); Mucus Urine Rare /lpf; Nitrate Urine Negative (Negative); Protein Urine 2+ mg/dL (Negative); RBC Urine 0-2 /hpf (0-2); Specific Grav Ur 1.014 (1.001-1.035); Squamous Epithelial Cell Urine Moderate /hpf (Few); Urobilinogen Urine Negative mg/dL (<2.0); WBC Urine 0-3 /hpf
--- NOTE | 2020-10-09 22:03 | ED.NAVMDI ---
HPI - Nausea/Vomiting/Diarrhea General Chief complaint: Abdominal Pain Stated complaint: uti Time Seen by Provider: 10/09/20 21:21 Source: patient Mode of arrival: ambulatory Limitations: no limitations History of Present Illness HPI Narrative: Patient [id number] female complaining of nausea, vomiting, diarrhea accompanied by lower abdominal pain, described as cramping, mild, worse with vomiting and diarrhea. Patient states that her vomitus is nonbilious nonbloody. Patient describes her diarrhea as loose, watery nonbloody. Related Data Home Medications Medication Instructions Recorded Confirmed metoprolol tartrate 25 mg tablet 25 mg PO DAILY 07/16/19 08/24/20 Allergies Allergy/AdvReac Type Severity Reaction Status Date / Time codeine Allergy Intermediate Swelling Verified 08/24/20 11:09 of Lip/Tongue/Throat shellfish derived Allergy Intermediate SWELLING Verified 08/24/20 11:09 fish derived Allergy Unknown SWELLING Verified 08/24/20 11:09 Review of Systems Review of Systems: All systems reviewed & are unremarkable except as noted in HPI and below Constitutional: Constitutional: Denies body ache(s), Denies chills, Denies excessive sweating, Denies fatigue, Denies fever(s), Denies headache(s), Denies lethargy, Denies malaise, Denies weakness and Denies weight loss Eyes: Eyes: Denies blurry vision, Denies change in vision and Denies loss of vision ENT: Denies dizziness, Denies ear discharge, Denies headache(s), Denies lip swelling, Denies epistaxis, Denies nasal congestion, Denies neck pain, Denies throat swelling and Denies tongue swelling Cardiovascular: Cardiovascular: Denies chest pain, Denies chest pain at rest, Denies chest pain with activity, Denies diaphoresis, Denies rapid heart rate, Denies edema, Denies irregular heart rhythm, Denies lightheadedness, Denies palpitations, Denies dyspnea and Denies dyspnea on exertion Respiratory: Respiratory: Denies chest congestion, Denies cough, Denies hemoptysis, Denies dyspnea and Denies dyspnea on exertion Gastrointestinal: Gastrointestinal: Denies melena, Denies hematochezia and Denies hematemesis Musculoskeletal: Musculoskeletal: Denies abnormal gait, Denies deformity, Denies joint swelling, Denies limited range of motion, Denies neck pain and Denies numbness Neurologic: Denies Abnormal speech present, Denies abnormal gait, Denies confusion, Denies dizziness, Denies headache(s), Denies focal weakness, Denies loss of vision, Denies numbness, Denies Other visual disturbances, Denies Sensory deficit (Neuro) and Denies weakness Psychiatric: Psychiatric: Denies confusion, Denies depression, Denies auditory hallucinations, Denies homicidal ideation and Denies suicidal ideation Endocrine: Endocrine: Denies cold intolerance, Denies excessive sweating, Denies fatigue, Denies heat intolerance and Denies palpitations Hematologic/Lymphatic: Hematologic/Lymphatic: Denies easy bleeding and Denies easy bruising Allergic/Immunologic: Allergic/Immunologic: Denies lip swelling, Denies throat swelling and Denies tongue swelling PMFSH Past Medical History Medical History Chronic bronchitis PFTs May 2018 demonstrating mild restrictive him [id number] 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
[2020-10-09] MEDS: ONDANSETRON INJ 4 MG/2 ML VIAL IV PUSH (22:09)
[2020-10-09] MEDS: LACTATED RINGERS 1,000 ML 999 ML IV CONT (22:09)
[2020-10-09 23:24] VITALS: BP 148/88; PULSE 76; RESP 16; TEMP 36.7; O2SAT 98
== END 2020-10-09 23:25 | disposition home or self-care (01) ==
PROVIDERS: Emergency Provider Emergency Medicine; PCP Internal Medicine
DX: K52.9 Noninfective gastroenteritis and colitis, unspecified (principal); J42 Unspecified chronic bronchitis; I10 Essential (primary) hypertension; K21.9 Gastro-esophageal reflux disease without esophagitis; I69.30 Unspecified sequelae of cerebral infarction; N32.81 Overactive bladder; Z86.718 Personal history of other venous thrombosis and embolism
CPT/HCPCS: 36415; 74176; 80053; 81001; 83605; 85025; 96361; 96374; 99284; J2405; J7120

== ENCOUNTER 2021-06-28 10:13 | Outpatient (CLI) | payer MEDICARE, SELFPAY ==
--- NOTE | ~2021-06-28 | XR_ITS ---
EXAMINATION: XR chest 2V DATE: 06/28/2021 10:31 INDICATION: Shortness of breath TECHNIQUE: PA and lateral views of the chest are obtained. COMPARISON: 06/24/2020 FINDINGS: The lungs are free of acute opacities. There is no pleural effusion or pneumothorax. The ca rdiomediastinal silhouette is normal. There is moderate thoracic spondylosis. IMPRESSION: 1. No acute cardiopulmonary abnormality. Reviewed, dictated and finalized at location A.
[2021-06-28 11:03] LABS: Basophils Absolute Auto 0.1 K/mm3 (0.0-0.1); Basophils Percent Auto 0.8 % (0.2-1.2); Eosinophils Absolute Auto 0.3 K/mm3 (0-0.3); Eosinophils Percent Auto 4.5 % (0-4.4); Hemoglobin 11.9 g/dL (12.0-15.0); Immature Granulocyte Absolute 0.02 K/mm3 (0.00-0.031); Immature Granulocyte Percent A 0.3 % (0-0.5); Lymphocytes Absolute Auto 1.13 K/mm3 (0.9-3.2); Lymphocytes Percent Auto 17.5 % (18.3-44.2); Mean Corpuscular HGB Conc 32.2 g/dl (32-36); Mean Corpuscular Hemoglobin 28.3 pg (26-34); Mean Corpuscular Volume 88.1 fl (80-100); Mean Platelet Volume 10.9 fl (7.4-10.4); Monocytes Absolute Auto 0.7 K/mm3 (0.1-0.6); Monocytes Percent Auto 10.7 % (2.6-8.5); Neutrophils Absolute Auto 4.3 K/mm3 (1.3-6.7); Neutrophils Percent Auto 66.2 % (45.5-73.1); Platelet Count Result 180 k/mm3 (150-375); Red Cell Distribution Width 14.2 % (11.5-14.5); White Blood Count 6.4 K/mm3 (4.5-10.0)
[2021-06-28 11:17] LABS: Alanine Aminotransferase 14 U/L (4-35); Alkaline Phosphatase 71 U/L (38-126); Anion Gap 7 mmol/L (8-16); Aspartate Amino Transferase 26 U/L (14-36); Bilirubin,Total 0.5 mg/dL (0.2-1.3); Blood Urea Nitrogen 25 mg/dL (7-17); Carbon Dioxide 27 mmol/L (22-30); Chloride 106 mmol/L (98-107); Estimated Glomerular Filt Rate 47; Glucose 111 mg/dL (65-110); Potassium 4.1 mmol/L (3.4-5.0); Sodium 140 mmol/L (137-145)
== END 2021-06-28 10:14 | disposition home or self-care (01) ==
PROVIDERS: PCP Internal Medicine; Visit Provider Clinical Nurse Specialist
DX: R06.00 Dyspnea, unspecified (principal); R42 Dizziness and giddiness; R79.89 Other specified abnormal findings of blood chemistry
CPT/HCPCS: 36415; 71046; 80053; 84443; 85025

== ENCOUNTER 2021-12-23 09:10 | Outpatient (CLI) | payer MEDICARE, SELFPAY ==
--- NOTE | 2021-12-23 09:42 | PCRCNOTE ---
PT CAME IN FOR PFT BUT WAS UNABLE TO PREFORM TESTING DUE TO SHORTNESS OF BREATH AND DIZZINESS. DR. EMERSON'S OFFICE NOTIFIED.
== END 2021-12-23 09:11 | disposition home or self-care (01) ==
LOC: ANHPFT 09:13
PROVIDERS: PCP Internal Medicine; Visit Provider Internal Medicine
DX: R06.00 Dyspnea, unspecified (principal)
CPT/HCPCS: 99199

== ENCOUNTER 2021-12-24 08:30 | Emergency (ER) | payer MEDICARE, SELFPAY ==
[2021-12-24] VITALS (26 sets, daily range): BP systolic 156–186; BP diastolic 70–90; PULSE 63–84; RESP 6–21; TEMP 36.5–36.6; O2SAT 97–100
--- NOTE | ~2021-12-24 | XR_ITS ---
EXAMINATION: XR chest 2V DATE: 12/24/2021 09:01 INDICATION: Shortness of breath. Epigastric pain, nausea, diarrhea. TECHNIQUE: frontal and lateral views of the chest were obtained. COMPARISON: Chest radiograph dated 06/28/[address] dated 08/07/2020 FINDINGS: The lungs remain clear with no focal airspace opacities, pulmonary edema, pleural effusion or pneumot horax. The cardiomediastinal silhouette is normal with small left paracardial fat pad extending towar ds the costophrenic angle. Severe thoracic spondylosis. IMPRESSION: 1. No acute cardiopulmonary disease. Reviewed, dictated and finalized at location A.
--- NOTE | ~2021-12-24 | CT_ITS ---
EXAMINATION: CT abdomen pelvis w con DATE: 12/24/2021 11:01 INDICATION: Right upper quadrant and left lower quadrant abdominal pain. TECHNIQUE: Computed tomography (CT) of the abdomen and pelvis was performed with 100 mL Omnipaque-350 intravenous contrast. Automated exposure control and iterative reconstruction technique were employe d. The dose-length product was 1168.68 mGy-cm. COMPARISON: 10/09/2020 FINDINGS: Bibasilar atelectasis. Heart size is normal. No pericardial or pleural effusion. Small sliding-type h iatal hernia. 8mm right hepatic cyst. Gallbladder, spleen, pancreas and bilateral adrenal glands are normal. Wall thickening in the proximal duodenum. There are few diverticula along the sigmoid colon w ithout adjacent inflammatory change to suggest diverticulitis. No bowel obstruction. Bladder is maria de jesus l. The uterus is not identified and has likely been surgically resected. No free intraperitoneal gas or fluid. No pathologically enlarged abdominal or pelvic lymphadenopathy. Small fat-containing umbili stefan hernia. Unchanged old small thick-walled fluid collection, likely seroma along a transverse anter ior pelvic wall surgical scar. Pelvic floor relaxation. Severe lumbar spondylosis. Internal fixation across the right sacroiliac joint. IMPRESSION: 1. Wall thickening in the proximal duodenum suggestive of duodenitis which could be related to peptic ulcer disease, infection or inflammatory bowel disease or potentially artifact of peristalsis. 2. Small sliding-type hiatal hernia. 3. Small fat-containing umbilical hernia. 4. Mild diverticulosis. Reviewed, dictated and finalized at location A. IMPRESSION: 1. Wall thickening in the proximal duodenum suggestive of duodenitis which coul d be related to peptic ulcer disease, infection or inflammatory bowel disease o r potentially artifact of peristalsis. 2. Small sliding-type hiatal hernia. 3. Small fat-containing umbilical hernia. 4. Mild diverticulosis.
--- NOTE | 2021-12-24 08:35 | ECG_ITS ---
Measurements Intervals [place] Rate: 69 P: 40 [place]: 163 QRS: -12 QRSD: 88 T: 31 QT: 378 QTc: 407 Interpretive Statements SINUS RHYTHM VOLTAGE CRITERIA FOR LVH [MEETS CRITERIA IN ONE OF: R(aVL), S(V1), R(V5), R(V5/V6)+S(V1)] NONSPECIFIC T-WAVE ABNORMALITY COMPARED TO ECG 06/24/2020 10:20:42 NO SIGNIFICANT DIFFERENCE Electronically Signed On 12-24-2021 11:29:33 CDT by Roosevelt Soler M.D.
[2021-12-24 08:51] LABS: Basophils Percent Auto 0.4 % (0.2-1.2); Eosinophils Absolute Auto 0.3 K/mm3 (0-0.3); Eosinophils Percent Auto 3.7 % (0-4.4); Hematocrit 39.8 % (37.0-47.0); Hemoglobin 12.7 g/dL (12.0-15.0); Immature Granulocyte Absolute 0.02 K/mm3 (0.00-0.031); Immature Granulocyte Percent A 0.3 % (0-0.5); Lymphocytes Absolute Auto 1.76 K/mm3 (0.9-3.2); Lymphocytes Percent Auto 25.8 % (18.3-44.2); Mean Corpuscular HGB Conc 31.9 g/dl (32-36); Mean Corpuscular Hemoglobin 27.9 pg (26-34); Mean Corpuscular Volume 87.5 fl (80-100); Monocytes Absolute Auto 0.7 K/mm3 (0.1-0.6); Monocytes Percent Auto 9.5 % (2.6-8.5); Neutrophils Absolute Auto 4.1 K/mm3 (1.3-6.7); Neutrophils Percent Auto 60.3 % (45.5-73.1); Platelet Count Result 186 k/mm3 (150-375); Red Blood Count 4.55 M/mm3 (4.2-5.4); Red Cell Distribution Width 14.8 % (11.5-14.5); White Blood Count 6.8 K/mm3 (4.5-10.0)
[2021-12-24 09:01] LABS: Alanine Aminotransferase 15 U/L (4-35); Albumin Level 4.3 g/dL (3.5-5.1); Alkaline Phosphatase 94 U/L (38-126); Anion Gap 7 mmol/L (8-16); Aspartate Amino Transferase 30 U/L (14-36); Bilirubin,Total 0.5 mg/dL (0.2-1.3); Blood Urea Nitrogen 30 mg/dL (7-17); Calcium 9.1 mg/dL (8.4-10.2); Carbon Dioxide 24 mmol/L (22-30); Chloride 110 mmol/L (98-107); Estimated CRCL calculation 39 ml/min; Estimated Glomerular Filt Rate 53; Glucose 119 mg/dL (65-110); Lipase 113 U/L (23-300); Potassium 4.1 mmol/L (3.4-5.0); Sodium 141 mmol/L (137-145)
[2021-12-24 09:02] LABS: Prothrombin Time 12.8 Seconds (11.1-14.7)
[2021-12-24 09:03] LABS: Partial Thromboplastin Time 24.2 SECONDS (22.3-36.8)
[2021-12-24 09:12] LABS: Troponin I < 0.012 ng/mL (0.000-0.034)
--- NOTE | 2021-12-24 09:59 | ED.ABDPAIN ---
HPI - Abdominal Pain General Chief Complaint: Abdominal Pain <ISAMAR Harris Last Filed: 12/24/21 14:42> Stated Complaint: sick all night - epigastric <ISAMAR Harris Last Filed: 12/24/21 14:42> Time Seen by Provider: 12/24/21 08:55 <ISAMAR Harris Last Filed: 12/24/21 14:42> Source: patient <ISAMAR Harris Last Filed: 12/24/21 14:42> Mode of arrival: ambulatory <ISAMAR Harris Last Filed: 12/24/21 14:42> Limitations: no limitations <ISAMAR Harris Last Filed: 12/24/21 14:42> History of Present Illness HPI narrative: Patient is an 85-year-old female who presents to the ED with report of epigastric abdominal pain. Patient reports the pain began yesterday afternoon. She thought it was just indigestion at first. The pain has continued to worsen and persist throughout the night. She states the pain is constant but there is an intermittent sharp pain. She tried taking Tylenol around 4 AM without relief. Patient also reports having nausea, urinary frequency, and dysuria last night, but denies any vomiting, fever, chills, diarrhea, constipation, chest pain, shortness of breath. <ISAMAR Harris Last Filed: 12/24/21 14:42> Related Data Home Medications: Home Medications Medication Instructions Recorded Confirmed metoprolol tartrate 25 mg tablet 25 mg PO DAILY 07/16/19 10/31/21 <ISAMAR Harris Last Filed: 12/24/21 14:42> Allergies/Adverse Reactions: Allergies Allergy/AdvReac Type Severity Reaction Status Date / Time codeine Allergy Intermediate Swelling Verified 12/24/21 08:39 of Lip/Tongue/Throat shellfish derived Allergy Intermediate SWELLING Verified 12/24/21 08:39 fish derived Allergy Unknown SWELLING Verified 12/24/21 08:39 <ISAMAR Harris Last Filed: 12/24/21 14:42> Review of Systems Review of Systems: CONSTITUTIONAL: Denies fever, chills, or sweats. CARDIOVASCULAR: Denies chest pain. RESPIRATORY: Denies dyspnea. GASTROINTESTINAL: Reports epigastric abdominal pain, nausea. Denies vomiting, constipation, rectal bleeding, melena, or diarrhea. GENITOURINARY: Reports dysuria and urinary frequency. Denies hematuria. MUSCULOSKELETAL: Denies back pain. 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, Dyspnea on exertion Essential hypertension With prior hospitalizations for malignant hypertension in 2018 GERD (gastroesophageal reflux disease) History of DVT (deep vein thrombosis) Right popliteal vein 2015 on long-term anticoagulation with Xarelto History of stroke with residual deficit Ischemia Overactive bladder Seasonal rhinitis Spinal stenosis of lumbar region at multiple levels TIA (transient ischemic attack) With negative MRI December 2015 Urinary incontinence, mixed Vertigo <Felisha Jordan PA-C - Last Filed: 12/24/21 14:42> Surgical History Surgical History: Surgical History H/O foot surgery BL H/O repair of rotator cuff Left History of appendectomy History of bilateral breast biopsy With benign pathology History of bilateral cataract extraction History of bladder suspension procedure With subsequent revision History of cardiac catheterization 16 years ago that was reportedly negative History of left knee replacement January 2012 History of spinal surgery cages is sacroiliac in right side History of total hysterectomy with bilateral salpingo-oophorectomy (BSO) <JEANNIE Harris
[2021-12-24] MEDS: ONDANSETRON INJ 4 MG/2 ML VIAL IV PUSH (10:14)
[2021-12-24 10:33] LABS: Add Urine Microscopic? NO; Appearance Urine Clear (Clear); Bilirubin Urine Negative (Negative); Blood Urine Negative (Negative); Color Urine Yellow (Yellow); Glucose Urine UA Negative (Negative); Ketones Urine Negative (Negative); Leukocyte Esterase Ur Negative LEU/UL (Negative); Nitrate Urine Negative (Negative); Protein Urine Negative (Negative); Specific Grav Ur 1.013 (1.001-1.035); Urobilinogen Urine Negative mg/dL (<2.0)
[2021-12-24 12:31] LABS: Troponin I < 0.012 ng/mL (0.000-0.034)
[2021-12-24] MEDS: LIDOCAINE HCL 2% VISC SOLN 15 ML UDC 20 ML PO (12:32)
[2021-12-24] MEDS: MAG HYDROX/AL HYDROX/SIMETH 30 ML UDC PO (12:32)
[2021-12-24] MEDS: PANTOPRAZOLE SODIUM IV 40 MG VIAL IV PUSH (12:32)
== END 2021-12-24 13:50 | disposition home or self-care (01) ==
PROVIDERS: Emergency Medicine; Physician Assistant; Emergency Provider Emergency Medicine; PCP Internal Medicine
DX: K27.9 Peptic ulcer, site unspecified, unspecified as acute or chronic, without hemorrhage or perforation (principal); J42 Unspecified chronic bronchitis; I10 Essential (primary) hypertension; K21.9 Gastro-esophageal reflux disease without esophagitis; N32.81 Overactive bladder; I69.90 Unspecified sequelae of unspecified cerebrovascular disease; Z86.718 Personal history of other venous thrombosis and embolism; Z98.42 Cataract extraction status, left eye; Z98.41 Cataract extraction status, right eye; Z96.652 Presence of left artificial knee joint; Z77.22 Contact with and (suspected) exposure to environmental tobacco smoke (acute) (chronic); K44.9 Diaphragmatic hernia without obstruction or gangrene; K42.9 Umbilical hernia without obstruction or gangrene; K57.90 Diverticulosis of intestine, part unspecified, without perforation or abscess without bleeding
CPT/HCPCS: 36415; 71046; 74177; 80053; 81003; 83690; 84484; 85025; 85610; 85730; 93005; 96374; 96375; 99284; A9270; C9113; J0131; J2405; Q9967

== ENCOUNTER 2022-01-11 11:03 | Emergency (ER) | payer MEDICARE, SELFPAY ==
--- NOTE | ~2022-01-11 | CT_ITS ---
EXAMINATION: CT brain wo con DATE: 01/11/2022 11:29 INDICATION: Head injury from fall. Occipital hematoma. Vertigo. History of multiple cerebrovascular a ccidents TECHNIQUE: Computed tomography (CT) of the head was performed without intravenous contrast. The mA wa s adjusted according to patient size. Iterative reconstruction technique was employed. Exam dose: 60 5.33 mGy-cm total exam DLP. COMPARISON: 06/25/2020 MRA brain 06/24/2020 MRI brain 06/24/2020 CT brain FINDINGS: Mild posterior right parietal cephalohematoma. No skull fracture or intracranial coup or co ntrecoup injury is noted. Chronic left posterior parietal occipital encephalomalacia consistent with old infarct, stable since 06/24/2020. Bilateral carotid siphon internal carotid artery calcifications. There is nonspecific diminished atte nuation of the cerebral white matter, likely due to chronic small vessel ischemic changes. Moderate cerebral volume loss. No intracranial mass lesion or hemorrhage, midline shift or mass effect effect is noted. No subdural or epidural hematoma. The mastoid air cells and included paranasal sinuses are unremarkable. IMPRESSION: Mild posterior right parietal cephalohematoma without evidence of skull fracture or acut e intracranial abnormality Chronic left posterior parietal/occipital CVA, stable since 06/24/2020 Reviewed, dictated and finalized at Location A. Reviewed, dictated and finalized at location B. IMPRESSION: Mild posterior right parietal cephalohematoma without evidence of skull fracture or acute intracranial abnormality Chronic left posterior parietal/occipital CVA, stable since 06/24/2020
[2022-01-11 11:06] VITALS: BP 146/96; PULSE 76; RESP 16; TEMP 36.4; O2SAT 98
--- NOTE | 2022-01-11 11:10 | ED.HEATRA ---
HPI - Head Injury General Chief complaint: Head Injury Stated complaint: fall - head injury Time Seen by Provider: 01/11/22 11:07 Source: patient and EMS Mode of arrival: EMS Limitations: no limitations History of Present Illness HPI Narrative: Pt slipped on mud and fell and landed striking the back of her head on the gorund. Pt denies LOC. Pt only complains of pain to the back or her head and denies other injury. Pt is on blood thinner. Complaint: head injury, head pain and fall Mechanism of Injury: fall Loss of Consciousness: no Location of injury: occipital Severity: mild Related Data Home Medications Medication Instructions Recorded Confirmed metoprolol tartrate 25 mg tablet 25 mg PO DAILY 07/16/19 12/30/21 Allergies Allergy/AdvReac Type Severity Reaction Status Date / Time codeine Allergy Intermediate Swelling Verified 12/30/21 11:37 of Lip/Tongue/Throat shellfish derived Allergy Intermediate SWELLING Verified 12/30/21 11:37 fish derived Allergy Unknown SWELLING Verified 12/30/21 11:37 Review of Systems Review of Systems: All systems reviewed & are unremarkable except as noted in HPI and below PMFSH Past Medical History Medical History Chronic bronchitis PFTs May 2018 demonstrating mild restrictive him [id number] 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, Dyspnea on exertion Essential hypertension With prior hospitalizations for malignant hypertension in 2018 GERD (gastroesophageal reflux disease) History of DVT (deep vein thrombosis) Right popliteal vein 2015 on long-term anticoagulation with Xarelto History of stroke with residual deficit Ischemia Overactive bladder Seasonal rhinitis Spinal stenosis of lumbar region at multiple levels TIA (transient ischemic attack) With negative MRI December 2015 Urinary incontinence, mixed Vertigo Surgical History Surgical History H/O foot surgery BL H/O repair of rotator cuff Left History of appendectomy History of bilateral breast biopsy With benign pathology History of bilateral cataract extraction History of bladder suspension procedure With subsequent revision History of cardiac catheterization 16 years ago that was reportedly negative History of left knee replacement January 2012 History of spinal surgery cages is sacroiliac in right side History of total hysterectomy with bilateral salpingo-oophorectomy (BSO) Family History Family History Son Diabetes mellitus Enlarged heart Son Enlarged heart Father Pancreatic cancer Sibling Cancer Mother Emphysema lung Social History Social History Social History: Primary care physician: Dr. 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 Substance use: never Substance use type: does not use Additional living arrangements comments: She is and lives alone. She is independent in activities of daily living. She has 4 children. Her daughter and son-in-law live locally. Two of her sons live in [place] in the oldest son lives in [place]. her daughter Katelynn is a durable power credit and collections analyst for healthcare Additional occupation/education comments: [employer] Gender identity (if verbalized by the patient): Female Sexual Orientation (if Verbalized by the Patient): Straight or Heterosexual Spiritual care concerns: No Agree to blood products: Yes Exam Const: General: no acute distress Jose
[2022-01-11 11:14] VITALS: PULSE 77; RESP 8; O2SAT 95
[2022-01-11 11:58] VITALS: PULSE 74; RESP 10; O2SAT 99
[2022-01-11 12:04] VITALS: BP 138/74; PULSE 74; RESP 12; O2SAT 100
== END 2022-01-11 12:23 | disposition home or self-care (01) ==
PROVIDERS: Emergency Provider Emergency Medicine; PCP Internal Medicine
DX: S09.90XA Unspecified injury of head, initial encounter (principal); I10 Essential (primary) hypertension; J42 Unspecified chronic bronchitis; N32.81 Overactive bladder; N39.46 Mixed incontinence; K21.9 Gastro-esophageal reflux disease without esophagitis; I69.90 Unspecified sequelae of unspecified cerebrovascular disease; Z79.01 Long term (current) use of anticoagulants; Z86.718 Personal history of other venous thrombosis and embolism; Z98.42 Cataract extraction status, left eye; Z98.41 Cataract extraction status, right eye; Z96.652 Presence of left artificial knee joint; Z77.22 Contact with and (suspected) exposure to environmental tobacco smoke (acute) (chronic); W01.0XXA Fall on same level from slipping, tripping and stumbling without subsequent striking against object, initial encounter
CPT/HCPCS: 70450; 99284

== ENCOUNTER 2022-01-19 08:15 | Outpatient (CLI) | payer MEDICARE, SELFPAY ==
--- NOTE | 2022-01-25 22:02 | WPDSLEEPSTUD ---
Sleep Study Date of Study: 01/19/22 Ordering Provider: Juan C Gallardo DO Interpreting Physician: Eli Smith MD Sleep Study Type: Polysomnogram Height: 1.57 m Weight: 90.718 kg Body Mass Index: 36.6 Neck Circumference (inches): 13.5 [place]: 9 Reason for Sleep Study Stroke 2 years ago, loud snoring, difficulty waking. Sleep History Leticia Nguyen is an 86-year-old female with a stroke 2 years ago. She does not awaken from sleep feeling short of breath she although she constantly wakes at night with heartburn, belching or coughing. She constantly snores and it is was but enough that others complain about it. She does not have trouble sleeping with a cold nor does she wake up gasping for breath at night. She does not have breathing problems at night observed by others. She does not sweat excessively at night or notice her heart pounding or beating irregularly at night. She does not fall asleep during the day, does not fall asleep involuntarily and does not fall asleep while driving. She does not have loss of muscle tone with strong emotion. She does not have daytime difficulties due to excessive sleepiness. She does not feel paralyzed on waking or falling asleep. She constantly has vivid dream like scenes upon awakening or falling asleep. She does not feel afraid to go to sleep. She does not have nightmares. She does not have racing thoughts. She does not feel sad or depressed. She does not have anxiety. She denies muscular tension. She frequently notices parts of her body jerking and she frequently kicks at night. She frequently has crawling aching feelings in her legs. She does not have any kind of leg pain at night. She does not have morning jaw pain. She does not grind her teeth during sleep. She is not bothered by pain during the day nor is she awakened by pain during the night. She she occasionally wakes up feeling stiff in the morning with sore achy muscles. She does not wake up with pain in the neck and spine. She has memory problems, fatigue and dizziness. She does not appear to have a set bedtime. This varies from night to night. It may take her 10 minutes to fall asleep. She wakes up several times at night to go to the bathroom. Her wake-up time is variable. She takes naps in the afternoon or evening. A short nap may be refreshing. She does not always feel refreshed on waking. Habits: She is a never smoker. No caffeine. Minimal alcohol. No recreational drugs. 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, Dyspnea on exertion Essential hypertension With prior hospitalizations for malignant hypertension in 2018 GERD (gastroesophageal reflux disease) History of DVT (deep vein thrombosis) Right popliteal vein 2015 on long-term anticoagulation with Xarelto History of stroke with residual deficit Ischemia Overactive bladder Seasonal rhinitis Spinal stenosis of lumbar region at multiple levels TIA (transient ischemic attack) With negative MRI December 2015 Urinary incontinence, mixed Vertigo Surgical History Surgical History H/O foot surgery BL H/O repair of rotator cuff Left History of appendectomy History of bilateral breast biopsy With benign pathology History of bilateral cataract extraction History of bladder suspension procedure With subsequent revision History of cardiac catheterization 16 years ago that was reportedly negative History of left knee replacement January 2012 History of spinal surgery cages is sacroiliac in right side History of total hysterectomy with bilateral salpingo-oophorectomy (BSO) Family History Family History Son
[2022-01-25 23:09] VITALS: BMI 36.6
== END 2022-01-20 07:37 | disposition home or self-care (01) ==
LOC: ANHCSM 08:16
PROVIDERS: PCP Internal Medicine; Visit Provider Internal Medicine
DX: G47.33 Obstructive sleep apnea (adult) (pediatric) (principal); G25.81 Restless legs syndrome
CPT/HCPCS: 95810

== ENCOUNTER 2022-04-13 21:11 | Outpatient (NON) | payer MEDICARE, SELFPAY | END 2022-04-13 21:12 | disposition home or self-care (01) | LOC: ANHOBOP 21:12 → HOME HLTH 21:14 | PROVIDERS: PCP Internal Medicine; Visit Provider Internal Medicine | DX: R30.0 Dysuria (principal) | CPT/HCPCS: 87077; 87086; 87186 ==

== ENCOUNTER 2022-06-20 17:04 | Observation (INO) | payer MEDICARE, MEDICAID, SELFPAY ==
[2022-06-20] VITALS (29 sets, daily range): BP systolic 183–205; BP diastolic 76–103; PULSE 78–100; RESP 12–24; TEMP 36.5–36.8; O2SAT 93–100; BMI 35.1
--- NOTE | ~2022-06-20 | US_ITS ---
EXAMINATION: US right upper quadrant DATE: 06/21/2022 08:09 INDICATION: Right upper quadrant abdominal pain. TECHNIQUE: Multiple grayscale and Doppler ultrasound images of the abdomen were obtained. COMPARISON: CT abdomen and pelvis 06/20/2022 FINDINGS: The pancreas is obscured by bowel gas. The liver is normal without focal lesion. There is n ormal flow in main portal vein. The gallbladder is distended and contains gallstones. Gallbladder wal l thickening is noted. There was a positive sonographic Russell sign. The common duct is dilated to 11 mm. IMPRESSION: 1. Acute cholecystitis. 2. Dilated common duct. Reviewed, dictated and finalized at location B.
--- NOTE | ~2022-06-20 | CT_ITS ---
EXAMINATION: CT abdomen pelvis w con DATE: 06/20/2022 18:44 INDICATION: Right upper quadrant pain TECHNIQUE: Computed tomography (CT) of the abdomen and pelvis was performed with 100 mL Omnipaque-350 intravenous contrast. Automated exposure control and iterative reconstruction technique were employe d. The dose-length product was 1240.68 mGy-cm. COMPARISON: 12/24/2021. FINDINGS: Lower thorax: Senescent changes. Bibasilar scar/atelectasis. Coronary artery and mitral calcification . Moderate hiatal hernia. Liver: Right hepatic cyst or hemangioma. Intrahepatic bile duct dilation Biliary/Gallbladder: Dilated gallbladder. Mild wall inflammation. Extrahepatic bile duct dilation to 12 mm. Pancreas: Atrophy. Spleen: Normal. Adrenals:No mass. Kidneys: Bilateral renal atrophy, left greater than right. Bilateral subcentimeter hypodensities that are too small to characterize. GI tract: No small or large bowel dilation. Appendix not visualized. Diverticulosis without diverticu litis. Mesentery/Peritoneum: No ascites, mass, or free air. Retroperitoneum: No mass. Atherosclerotic abdominal aortic and/or arterial calcifications. Pelvis: Bladder wall inflammation. Absent uterus. Soft Tissues: 1.2 x 3.7 x 5.8 cm rim-enhancing fluid collection along the anterior surface of the mid line lower abdominal wall in the deep subcutaneous tissues. Bones: No acute osseous finding. Uncomplicated appearing right SI joint fusion hardware IMPRESSION: 1. Dilated, mildly inflamed gallbladder with intra and extrahepatic bile duct dilation, as can be see n with choledocholithiasis, although an obstructing stone is not identified at this time. 2. Stable deep subcutaneous 0.2 x 3.7 x 5.8 cm rim enhancing fluid collection along the anterior surf trevor of the midline lower abdominal wall, likely chronic seroma. 3. Urinary bladder cystitis versus incomplete distention, correlate with urinalysis. Reviewed, dictated and finalized at location K. IMPRESSION: 1. Dilated, mildly inflamed gallbladder with intra and extrahepatic bile duct d ilation, as can be seen with choledocholithiasis, although an obstructing stone is not identified at this time. 2. Stable deep subcutaneous 0.2 x 3.7 x 5.8 cm rim enhancing fluid collection a long the anterior surface of the midline lower abdominal wall, likely chronic s eroma. 3. Urinary bladder cystitis versus incomplete distention, correlate with urinal ysis.
--- NOTE | ~2022-06-20 | XR_ITS ---
EXAMINATION: XR ERCP DATE: 06/23/2022 15:51 INDICATION: Choledocholithiasis. TECHNIQUE: 8 spot fluoroscopic images of the right upper quadrant were obtained during endoscopic ret rograde cholangiopancreatography (ERCP). Fluoroscopy exposure time was 74 seconds. COMPARISON: CT abdomen and pelvis 06/20/2022, intraoperative cholangiogram 06/22/2022 FINDINGS: The endoscope is in the second portion of the duodenum. There is opacification of the commo n duct. There is a stone in the common bile duct. IMPRESSION: 1. Choledocholithiasis. Please refer to the ERCP procedure note for additional details. Reviewed, dictated and finalized at location A.
--- NOTE | ~2022-06-20 | XR_ITS ---
EXAMINATION: XR cholangiogram surg 1st inj DATE: 06/22/2022 15:39 INDICATION: Acute cholecystitis. TECHNIQUE: 750 intraoperative fluoroscopic views of the abdomen were obtained. I was not present. Flu oroscopy exposure time was 119 seconds. COMPARISON: CT abdomen and pelvis 06/20/2022 FINDINGS: There is a catheter in the cystic duct. There is intrahepatic and extrahepatic biliary duct dilatation. There is a 7 mm stone in the common bile duct. Contrast passes to the duodenum. IMPRESSION: 1. 7 mm stone in the common bile duct. Reviewed, dictated and finalized at location A.
--- NOTE | 2022-06-20 17:06 | ECG_ITS ---
Measurements Intervals [place] Rate: 93 P: 40 MI: 173 QRS: 10 QRSD: 81 T: 51 QT: 360 QTc: 450 Interpretive Statements SINUS RHYTHM POSSIBLE LEFT ATRIAL ENLARGEMENT [-0.1mV P WAVE IN V1/V2] POSSIBLE LEFT VENTRICULAR HYPERTROPHY [VOLTAGE CRITERIA PLUS LAE OR QRS WIDENING] BORDERLINE ECG COMPARED TO ECG 12/24/2021 08:39:47 NO SIGNIFICANT CHANGES Electronically Signed On 06-21-2022 10:17:00 CDT by Janes Mesa M.D.
--- NOTE | 2022-06-20 17:35 | ED.ABDPAIN ---
HPI - Abdominal Pain General Chief Complaint: Abdominal Pain <Mikey Stoddard MD - Last Filed: 06/20/22 18:58> Stated Complaint: nausea, vomiting, diarrhea and chest pain <Mikey Stoddard MD - Last Filed: 06/20/22 18:58> Time Seen by Provider: 06/20/22 17:35 <Mikey Stoddard MD - Last Filed: 06/20/22 18:58> Source: patient <Mikey Stoddard MD - Last Filed: 06/20/22 18:58> Mode of arrival: ambulatory <Mikey Stoddard MD - Last Filed: 06/20/22 18:58> Limitations: no limitations <Mikey Stoddard MD - Last Filed: 06/20/22 18:58> History of Present Illness HPI narrative: 86 years old white female came to the emergency by private car from home complaining of epigastric and right upper quadrant pain that 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 History of deep vein thrombosis on Xarelto, multiple CVA, patient is DNR. Patient denies any fever or chills. Patient is allergic to codeine causing respiratory distress, had morphine before without any complication. <Mikey Stoddard MD - Last Filed: 06/20/22 18:58> Related Data Home Medications: Home Medications Medication Instructions Recorded Confirmed rivaroxaban 20 mg tablet (Xarelto) 20 mg PO DAILY 06/20/22 06/20/22 <Mikey Stoddard MD - Last Filed: 06/20/22 18:58> Allergies/Adverse Reactions: Allergies Allergy/AdvReac Type Severity Reaction Status Date / Time codeine Allergy Intermediate Swelling Verified 06/20/22 23:41 of Lip/Tongue/Throat shellfish derived Allergy Intermediate SWELLING Verified 06/20/22 23:41 fish derived Allergy Unknown SWELLING Verified 06/20/22 23:41 <Mikey Stoddard MD - Last Filed: 06/20/22 18:58> Review of Systems Review of Systems: All systems reviewed & are unremarkable except as noted in HPI and below <iMkey Stoddard MD - Last Filed: 06/20/22 18:58> PMFSH Past Medical History Medical History: Medical History Chronic bronchitis PFTs May 2018 demonstrating mild restrictive him [id number] 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, Dyspnea on exertion Essential hypertension With prior hospitalizations for malignant hypertension in 2018 GERD (gastroesophageal reflux disease) History of DVT (deep vein thrombosis) Right popliteal vein 2015 on long-term anticoagulation with Xarelto History of stroke with residual deficit Ischemia Overactive bladder Seasonal rhinitis Spinal stenosis of lumbar region at multiple levels TIA (transient ischemic attack) With negative MRI December 2015 Urinary incontinence, mixed Vertigo <Mkiey Stoddard MD - Last Filed: 06/20/22 18:58> Surgical History Surgical History: Surgical History H/O foot surgery BL H/O repair of rotator cuff Left History of appendectomy History of bilateral breast biopsy With benign pathology History of bilateral cataract extraction History of bladder suspension procedure With subsequent revision History of cardiac catheterization 16 years ago that was reportedly negative History of left knee replacement January 2012 History of spinal surgery cages is sacroiliac in right side History of total hysterectomy with bilateral salpingo-oophorectomy (BSO) <Mikey Stoddard MD - Last Filed: 06/20/22 18:58> Family History Family History: Family History Son Diabetes mellitus Enlarged heart Son Enlarged heart Father Pancreatic cancer Sibling Cancer Mother Emphysema lung <Mikey Stoddard MD - Last Filed: 06/20/22 18:58> Social History Social History: Social History Social History: Primary care physician: Dr. Gallardo Code status: Full code Smoking status: Never smoker Second hand tobacco smok
[2022-06-20] MEDS: SODIUM CHLORIDE 0.9% IV 1,000 ML 999 ML IV CONT (17:57)
[2022-06-20] MEDS: ONDANSETRON INJ 4 MG/2 ML VIAL 8 MG IV PUSH (17:57)
[2022-06-20] MEDS: HYDROmorphone HCL INJ (*CRX) 1 MG/ML SYR 0.5 MG IV PUSH (17:57)
[2022-06-20 18:09] LABS: Basophils Percent Auto 0.3 % (0.2-1.2); Hematocrit 41.9 % (37.0-47.0); Hemoglobin 13.1 g/dL (12.0-15.0); Immature Granulocyte Absolute 0.09 K/mm3 (0.00-0.031); Immature Granulocyte Percent A 0.8 % (0-0.5); Lymphocytes Absolute Auto 0.73 K/mm3 (0.9-3.2); Lymphocytes Percent Auto 6.2 % (18.3-44.2); Mean Corpuscular HGB Conc 31.3 g/dl (32-36); Mean Corpuscular Volume 86.4 fl (80-100); Mean Platelet Volume 10.9 fl (7.4-10.4); Monocytes Absolute Auto 0.4 K/mm3 (0.1-0.6); Neutrophils Absolute Auto 10.6 K/mm3 (1.3-6.7); Neutrophils Percent Auto 89.7 % (45.5-73.1); Platelet Count Result 192 k/mm3 (150-375); Red Blood Count 4.85 M/mm3 (4.2-5.4); Red Cell Distribution Width 15.5 % (11.5-14.5); White Blood Count 11.8 K/mm3 (4.5-10.0)
[2022-06-20 18:21] LABS: Alanine Aminotransferase 21 U/L (6-35); Albumin Level 4.7 g/dL (3.5-5.1); Alkaline Phosphatase 101 U/L (38-126); Anion Gap 10 mmol/L (8-16); Aspartate Amino Transferase 31 U/L (14-36); Bilirubin,Total 0.6 mg/dL (0.2-1.3); Blood Urea Nitrogen 28 mg/dL (7-17); Calcium 9.4 mg/dL (8.4-10.2); Carbon Dioxide 23 mmol/L (22-30); Chloride 108 mmol/L (98-107); Estimated CRCL calculation 40 ml/min; Estimated Glomerular Filt Rate 53; Glucose 152 mg/dL (65-110); Lipase 58 U/L (23-300); Potassium 4.4 mmol/L (3.4-5.0); Sodium 141 mmol/L (137-145)
[2022-06-20 18:32] LABS: Troponin I < 0.012 ng/mL (0.000-0.034)
[2022-06-20 19:17] LABS: Add Urine Microscopic? YES; Appearance Urine Clear (Clear); Bilirubin Urine Negative (Negative); Blood Urine 1+ (Negative); Color Urine Straw (Yellow); Glucose Urine UA Negative (Negative); Ketones Urine Negative (Negative); Leukocyte Esterase Ur Negative LEU/UL (Negative); Nitrate Urine Negative (Negative); Protein Urine 2+ mg/dL (Negative); RBC Urine 0-2 /hpf (0-2); Specific Grav Ur 1.028 (1.001-1.035); Squamous Epithelial Cell Urine Rare /hpf (Few); Urobilinogen Urine Negative mg/dL (<2.0); WBC Urine 0-3 /hpf
--- NOTE | 2022-06-20 19:28 | PC.NURSE ---
Patient report received from TOMMIE Ovalle. All questions answered and care of patient assumed. Patient resting quietly in stretcher with family at bedside. Call-light within reach. Patient states I'm uncomfortable but not really in pain. My MASSEY went away . Denies any other complaints. Patient does request water to drink but educated that we must await CT results. Warm blanket provided. VSS. Will continue to address needs as they arise.
[2022-06-20 20:46] LABS: SARS-CoV-2 RNA PCR Negative
[2022-06-20] MEDS: MORPHINE SULFATE (*CRX) 4 MG/ML INJ IV PUSH (21:01)
--- NOTE | 2022-06-20 23:35 | ADMGEN ---
This patient, Leticia Nguyen, was admitted to Medical Room 244-. Patient/family oriented to hospital policies and general routines including ID bracelet, bed and alarms, visiting hours, pain management, procedures, bathroom and other care routines, personal items, smoking policy, room service/diet, and visiting hours. Information on how to activate the Rapid Response Team has been discussed. Patient/Family are encouraged to report perceived risks to care and to ask questions if they do not understand what they are told or what they should do.
[2022-06-20] MEDS: SODIUM CHLORIDE 0.9% IV 1,000 ML 75 ML IV CONT (23:37)
[2022-06-21] VITALS (7 sets, daily range): BP systolic 146–193; BP diastolic 61–98; PULSE 87–94; RESP 18–20; TEMP 34.4–37.2; O2SAT 94–99
--- NOTE | 2022-06-21 05:20 | PC.NURSE ---
Dr Reveles notified of bp 193/98, new orders received.
[2022-06-21] MEDS: hydrALAZINE HCL 20 MG/ML VIAL 10 MG IV PUSH (05:41)
--- OUTSIDE RECORDS SUMMARY | 2022-06-21 09:09 | XMS_ITS ---
:1935 Author Care Team Providers Name Role Phone DR. ROSALBA EMERSON Primary Care Provider [phone] DR. ROSALBA EMERSON Referring Provider [phone] Allergies Code Code System Name Reaction Severity Status Onset 2670 RxNorm Codeine ? ? Active ? Notes: Fish (of the sea) causes throat swelling Medications Name Status Start Date Stop Date ? ? amlodipine 10 mg tablet Active ? Not avai lable amoxicillin 500 mg capsule Completed ? 09/02 amoxicillin 875 mg-potassium clavulanate 125 mg tablet Completed ? 09/05/2019 TK 1 T PO BID atenolol 25 mg tablet Completed ? 09/02/2019 atenolol 50 mg tablet Completed ? 09/02/2019 TK ONE T PO QD UTD azithromycin 250 mg tablet Completed ? 09/05 benzonatate 100 mg capsule Completed ? 09/02 TK 1 C PO TID PRN Bevespi Aerosphere 9 mcg-4.8 mcg HFA aerosol inhaler Completed ? 09/02/2019 Breo Ellipta 100 mcg-25 mcg/dose powder for inhalation Completed ? 09/02/2019 citalopram 10 mg tablet Active ? Not avai lable Eliquis 5 mg tablet Active ? Not availabl e Fluzone High-Dose 8239-9054 (PF) 180 mcg/0.5 mL Completed ? 09/02/2019 intramuscular syringe gentamicin 0.3 % eye drops Active ? Not a vailable hydrochlorothiazide 25 mg tablet Completed ? 09/02/2019 ibuprofen 800 mg tablet Completed ? 09/02/20 19 Kenalog 10 mg/mL suspension for injection Active ? Not available In office injection administered by the provider levofloxacin 500 mg tablet Completed ? 09/02 TK 1 T PO QD lidocaine (PF) 10 mg/mL (1 %) injection solution Active ? Not available In office injection administered by the provid
--- NOTE | 2022-06-21 11:45 | PM.IMHP ---
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 History of deep vein thrombosis on Xarelto, multiple CVA, patient is DNR.? Patient denies any fever or chills.? Patient is allergic to codeine causing respiratory distress, had morphine before without any complication. 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, Dyspnea on exertion Essential hypertension With prior hospitalizations for malignant hypertension in 2018 GERD (gastroesophageal reflux disease) History of DVT (deep vein thrombosis) Right popliteal vein 2015 on long-term anticoagulation with Xarelto History of stroke with residual deficit Ischemia Overactive bladder Seasonal rhinitis Spinal stenosis of lumbar region at multiple levels TIA (transient ischemic attack) With negative MRI December 2015 Urinary incontinence, mixed Vertigo Surgical History Surgical History H/O foot surgery BL H/O repair of rotator cuff Left History of appendectomy History of bilateral breast biopsy With benign pathology History of bilateral cataract extraction History of bladder suspension procedure With subsequent revision History of cardiac catheterization 16 years ago that was reportedly negative History of left knee replacement January 2012 History of spinal surgery cages is sacroiliac in right side History of total hysterectomy with bilateral salpingo-oophorectomy (BSO) Family History Family History Son Diabetes mellitus Enlarged heart Son Enlarged heart Father Pancreatic cancer Sibling Cancer Mother Emphysema lung Social History Social History Social History: Primary care physician: Dr. 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 Substance use: never Substance use type: does not use Additional living arrangements comments: She is and lives alone. She is independent in activities of daily living. She has 4 children. Her daughter and son-in-law live locally. Two of her sons live in [place] in the oldest son lives in [place]. her daughter Katelynn is a durable power commonwealth attorney for healthcare Additional occupation/education comments: [employer] Gender identity (if verbalized by the patient): Female Sexual Orientation (if Verbalized by the Patient): Straight or Heterosexual Spiritual care concerns: No Agree to blood products: Yes Has the Lack of Transportation Kept You From Medical Appointments or From Getting Medications?: No Within the Past 12 Months, Were You Worried Whether Your Food Would Run Out Before You Got Money to Buy More?: Never True What is Your Housing Situation Today?: I Have Housing Are You Worried That in the Next 2 Months, You May Not Have Your Own Housing to Live In?: No Do You Have Trouble Paying Your Heating Or Electricity Bill?: No Do You Have Trouble Paying For Medicines?: No Are You Currently Unemployed and Looking for Work?: No Highest Level of Education Completed: Don't Know Do You Have Trouble With Childcare or the Care of a Family Member?: No Meds Home Medications and Allergies Home Medications Medication Instruc
[2022-06-21] MEDS: MORPHINE SULFATE (*CRX) 4 MG/ML INJ IV PUSH ×2 (12:59→18:22)
--- NOTE | 2022-06-21 17:48 | PM.CNGS ---
Assessment and Plan Assessment and plan (1) Cholelithiasis with acute on chronic cholecystitis without biliary obstruction: Code(s): K80.12 - Calculus of gallbladder with acute and chronic cholecystitis without obstruction Status: Acute Assessment and Plan: initial CT scan in the ED did not reveal cholelithiasis. It did however suggest thickening of the gallbladder wall and possible cholecystitis. Ultrasound this morning confirms Koul cholelithiasis and a thickened gallbladder wall with some pericholecystic fluid. Therefore, since the patient will a been off her Xarelto 48 hours tomorrow morning I have discussed with her the risks benefits possible complications of a laparoscopic cholecystectomy possible intraoperative cholangiogram, possible open cholecystectomy. After thorough discussion and the alternative of possible treatment with antibiotics or percutaneous cholecystostomy placed by ultrasound she has decided to proceed with a laparoscopic cholecystectomy. It appears that with her EKG and other findings it would be safe to proceed. She has medical clearance from Dr. Powers and we will plan to proceed with a laparoscopic cholecystectomy tomorrow afternoon 06/22/2022. (2) GERD (gastroesophageal reflux disease): Code(s): K21.9 - Gastro-esophageal reflux disease without esophagitis Status: Acute Assessment and Plan: Continue current PPI IV (3) Essential hypertension: Code(s): I10 - Essential (primary) hypertension Status: Acute Assessment and Plan: appreciate medicine's help. Monitor hypertension until patient can take p.o. meds again (4) History of DVT (deep vein thrombosis): Code(s): Z86.718 - Personal history of other venous thrombosis and embolism Status: Chronic Assessment and Plan: specific until this was distant past and is not the reason the patient is on Xarelto. ( patient thinks she is on Xarelto because the continued it because she has had a TIA and a stroke in the past. ) I specifically asked her she did not take it yesterday in the evening and thinks that she usually takes her pills in the morning. Therefore, since she did not take it today ( 06/21/2022). She should about off of it 36-48 hours by the time we do surgery tomorrow. (5) History of stroke: Code(s): Z86.73 - Personal history of transient ischemic attack (TIA), and cerebral infarction without residual deficits Status: Acute (6) Obstructive sleep apnea: Code(s): G47.33 - Obstructive sleep apnea (adult) (pediatric) Status: Acute History of Present Illness Consult details Consult date: 06/21/22 Reason for consult: gallstones ( Apparent acute on chronic cholecystitis with cholelithiasis) Requesting physician: Roosevelt Powers MD Review of Systems Review of Systems: All systems reviewed & are unremarkable except as noted in HPI and below (HPI) Constitutional: Constitutional: Reports as per HPI, Denies chills and Denies fever(s) Eyes: Eyes: Reports no additional eye complaints ENT: Reports Normal hearing present and Denies dizziness Cardiovascular: Cardiovascular: Reports no additional cardiovascular complaints, Denies chest pain and Denies irregular heart rhythm Comments: history of essential hypertension History of previous TIA History of previous DVT several years back. ( Continues on Xarelto because of her stroke). Respiratory: Respiratory: Reports no additional respiratory complaints Gastrointestinal: Gastrointestinal: Denies bloating Comments: history of GERD on PPI Genitourinary: Genitourinary: Denies hematuria Comments: history of BLADE& BSO in her 40s. Musculoskeletal: Musculoskeletal: Denies back pain Integumentary/Breasts: Skin/Breast: Reports system reviewed and no additional complaints, except as docu Neurologic: Reports Normal hearing present, Denies Abnormal speech present, Denies confusion and Denies dizziness
[2022-06-21] MEDS: SODIUM CHLORIDE 0.9% IV 1,000 ML 75 ML IV CONT (18:23)
[2022-06-22] VITALS (18 sets, daily range): BP systolic 129–197; BP diastolic 59–83; PULSE 60–88; RESP 6–18; TEMP 36.2–37.2; O2SAT 94–100
[2022-06-22 06:10] LABS: Basophils Percent Auto 0.2 % (0.2-1.2); Eosinophils Absolute Auto 0.1 K/mm3 (0-0.3); Eosinophils Percent Auto 0.7 % (0-4.4); Hematocrit 35.2 % (37.0-47.0); Immature Granulocyte Absolute 0.18 K/mm3 (0.00-0.031); Lymphocytes Absolute Auto 1.39 K/mm3 (0.9-3.2); Lymphocytes Percent Auto 7.7 % (18.3-44.2); Mean Corpuscular HGB Conc 31.3 g/dl (32-36); Mean Corpuscular Hemoglobin 26.9 pg (26-34); Mean Corpuscular Volume 86.1 fl (80-100); Monocytes Absolute Auto 1.5 K/mm3 (0.1-0.6); Monocytes Percent Auto 8.4 % (2.6-8.5); Neutrophils Absolute Auto 14.7 K/mm3 (1.3-6.7); Platelet Count Result 145 k/mm3 (150-375); Red Blood Count 4.09 M/mm3 (4.2-5.4); Red Cell Distribution Width 15.9 % (11.5-14.5)
[2022-06-22 06:21] LABS: Alanine Aminotransferase 21 U/L (6-35); Albumin Level 3.6 g/dL (3.5-5.1); Alkaline Phosphatase 70 U/L (38-126); Anion Gap 12 mmol/L (8-16); Aspartate Amino Transferase 34 U/L (14-36); Bilirubin,Total 1.6 mg/dL (0.2-1.3); Blood Urea Nitrogen 27 mg/dL (7-17); Calcium 8.6 mg/dL (8.4-10.2); Carbon Dioxide 23 mmol/L (22-30); Chloride 106 mmol/L (98-107); Estimated CRCL calculation 29 ml/min; Estimated Glomerular Filt Rate 36; Glucose 86 mg/dL (65-110); Lipase 22 U/L (23-300); Potassium 3.5 mmol/L (3.4-5.0); Sodium 141 mmol/L (137-145)
[2022-06-22] MEDS: PANTOPRAZOLE SODIUM IV 40 MG VIAL IV PUSH (09:00)
[2022-06-22] MEDS: MORPHINE SULFATE (*CRX) 4 MG/ML INJ IV PUSH ×2 (09:07→11:31)
[2022-06-22] MEDS: CHLORHEXIDINE GLUCONATE 4% SOL 120 ML BTL 1 APPLIC TOPICAL (09:37)
--- NOTE | 2022-06-22 10:53 | WPDHPUPDATE1 ---
History and Physical Update Update Date/Time: 06/22/22 10:53 History and Physical has been reviewed, including an updated exam of the patient. There are changes in the patient's condition[place] [address] and the bilirubin is up to 1.6. Therefore, we will plan to try to do a cholangiogram today to be sure she does not have a common bile duct stone. Risks, benefits, and alternatives have been discussed and questions answered. Patient agrees to proceed with procedure.
--- NOTE | 2022-06-22 11:15 | PM.IMPN ---
Progress Note: A&P Assessment and Plan (1) Acute cholecystitis: Code(s): K81.0 - Acute cholecystitis Status: Acute Assessment and Plan: Await surgical plan. continue IV antibiotics (2) Dementia: Code(s): F03.90 - Unspecified dementia, unspecified severity, without behavioral disturbance, psychotic disturbance, mood disturbance, and anxiety Status: Acute Assessment and Plan: chronic and stable (3) Essential hypertension: Code(s): I10 - Essential (primary) hypertension Status: Acute Assessment and Plan: monitor blood pressure (4) GERD (gastroesophageal reflux disease): Code(s): K21.9 - Gastro-esophageal reflux disease without esophagitis Status: Acute Assessment and Plan: chronic (5) Chronic bronchitis: Code(s): J42 - Unspecified chronic bronchitis Status: Acute Assessment and Plan: chronic (6) Dizziness: Code(s): R42 - Dizziness and giddiness Status: Acute Assessment and Plan: chronic and stable (7) History of DVT (deep vein thrombosis): Code(s): Z86.718 - Personal history of other venous thrombosis and embolism Status: Acute Assessment and Plan: patient has a DVT back in 2016. Presumably this is why she is on Xarelto. This is on hold currently. Per report she also may be on Xarelto for history of CVA. Nonetheless this can be resume postop When okay with surgery. Subjective Date/time seen: 06/22/22 11:15 No new complaints. Exam Narrative: General: alert and oriented Psych: appropriate mood nad affect Eyes: PERRLA Neck: Trachea midline, no new lesions Skin: no changes Lungs: CTA Cardiac: Normal S1,S2, no MGR ABD: soft, nd, nt, nbs Ext: no new lesions, no cce Vasc: Pulses intact Objective Data Vital Signs Vital Signs: Vital Signs - 24 hr 06/21/22 14:00 06/21/22 21:02 06/21/22 21:20 Temperature 94.0 F L 99 F Pulse Rate 90 94 Respiratory Rate 18 20 Blood Pressure 160/72 H 159/76 H Pulse Oximetry 97 94 94 Oxygen Delivery Nasal Cannula Oxygen Flow Rate 2 06/22/22 05:55 Temperature 97.9 F Pulse Rate 88 Respiratory Rate 16 Blood Pressure 152/83 H Pulse Oximetry 94 Oxygen Delivery Oxygen Flow Rate Intake/Output Intake/Output: Intake & Output 06/19/22 06/20/22 06/21/22 06/22/22 23:59 23:59 23:59 23:59 Intake Total 1050 1800 100 Output Total 1000 Balance 1050 800 100 Meds/Results Medications: Active Medications Generic Name Dose Route Start Last Admin Trade Name Freq PRN Reason Stop Dose Admin Hydralazine HCl 10 mg 06/21/22 05:20 06/21/22 05:41 Hydralazine Hcl 20 Mg/Ml Vial IV PUSH 10 mg Q4H PRN Administration Blood Pressure - High Piperacillin/Tazobactam/Dextrose 3.375 gm in 50 mls @ 100 mls/hr 06/21/22 03:00 06/22/22 09:30 Zosyn 3.375 Gm/D5w 50ml Pm IVPB Infused Q6H DARREN Infusion Sodium Chloride 1,000 mls @ 75 mls/hr 06/20/22 21:55 06/21/22 18:23 Normal Saline Iv IV CONT 75 mls/hr .[id number] DARREN Administration Morphine Sulfate 4 mg 06/20/22 21:53 06/22/22 09:07 Morphine Sulfate (*Crx) 4 Mg/Ml Inj IV PUSH 4 mg Q2H PRN Administration Pain Rated 7-10 Pantoprazole Sodium 40 mg 06/22/22 09:00 06/22/22 09:00 Pantoprazole Sodium Iv 40 Mg Vial IV PUSH 40 mg QAM DARREN Administration Radiology Results: ITS Impressions Abdomen/Pelvis CT 06/20/22 18:50 IMPRESSION: 1. Dilated, mildly inflamed gallbladder with intra and extrahepatic bile duct dilation, as can be seen with choledocholithiasis, although an obstructing stone is not identified at this time. 2. Stable deep subcutaneous 0.2 x 3.7 x 5.8 cm rim enhancing fluid collection along the anterior surface of the midline lower abdominal wall, likely chronic seroma. 3. Urinary bladder cystitis versus incomplete distention, correlate with urinalysis. Upper Quadrant Ultrasound 06/21/22 08:15 IM
[2022-06-22] MEDS: LACTATED RINGERS 1,000 ML 30 ML IV CONT (12:15)
[2022-06-22] MEDS: KETOROLAC 15 MG/ML VIAL (*BKC) IV PUSH (12:15)
[2022-06-22] MEDS: ACETAMINOPHEN 500 MG TABLET 1000 MG PO (12:15)
--- NOTE | 2022-06-22 13:11 | WPDANESEPPF ---
Anes - Initial Pre Proc Eval Procedure: Operation Date: 06/22/22 14:00 Proposed Procedures p Laparoscopic Cholecystectomy, Possible Intraoperative Cholangiogram, Possible Open - Gavin Ram MD Date/Time: 06/22/22 13:11 Surgeon: Betsy Reveles DO Pre Op Diagnosis: Cholecystitis Patient Data Age: 86 Gender: F Height: 1.6 m Weight: 90 kg Last Vital Signs Temp 36.6 C 06/22/22 05:55 Pulse 84 06/22/22 11:53 Resp 18 06/22/22 11:53 BP 139/62 06/22/22 11:53 Pulse Ox 99 06/22/22 11:53 O2 Del Method Nasal Cannula 06/22/22 09:00 O2 Flow Rate 2 06/22/22 09:00 Allergies Allergy/AdvReac Type Severity Reaction Status Date / Time codeine Allergy Intermediate Swelling Verified 06/20/22 23:41 of Lip/Tongue/Throat shellfish derived Allergy Intermediate SWELLING Verified 06/20/22 23:41 fish derived Allergy Unknown SWELLING Verified 06/20/22 23:41 Home Medications Medication Instructions Recorded Confirmed Type aspirin 81 mg chewable tablet 81 mg PO DAILY #30 tabs 06/26/20 06/20/22 Rx ondansetron HCl 4 mg tablet 4 mg PO Q8H PRN nausea and 10/09/20 06/20/22 Rx (Zofran) vomiting #10 tabs budesonide-formoterol HFA 160 2 puff inhalation BID #10.2 grams 10/31/21 06/20/22 Rx mcg-4.5 mcg/actuation aerosol inhaler (Symbicort) amlodipine 10 mg tablet 10 mg PO DAILY #90 tabs 01/03/22 06/20/22 Rx omeprazole 20 mg capsule,delayed 20 mg PO DAILY #90 caps 01/25/22 06/20/22 Rx release albuterol sulfate 90 mcg/actuation 2 inh inhalation Q4H PRN shortness 05/01/22 06/20/22 Rx aerosol inhaler of breath or wheezing #8.5 grams citalopram 10 mg tablet See Rx Instructions .Route 05/01/22 06/20/22 Rx .COMPLEX #90 tabs meclizine 25 mg tablet See Rx Instructions .Route 05/01/22 06/20/22 Rx .COMPLEX #90 tabs rivaroxaban 20 mg tablet (Xarelto) 20 mg PO DAILY 06/20/22 06/20/22 History Laboratory Tests 06/22/22 06/22/22 06/22/22 05:21 05:21 05:21 WBC 18.0 K/mm3 H K/mm3 (4.5-10.0) RBC 4.09 M/mm3 L M/mm3 (4.2-5.4) Hgb 11.0 g/dL L g/dL (12.0-15.0) Hct 35.2 % L % (37.0-47.0) MCV 86.1 fl fl (80-100) MCH 26.9 pg pg (26-34) MCHC 31.3 g/dl L g/dl (32-36) RDW 15.9 % H % (11.5-14.5) Plt Count 145 k/mm3 L k/mm3 (150-375) MPV 11.0 fl H fl (7.4-10.4) Immature Gran % (Auto) 1.0 % H % (0-0.5) Neut % (Auto) 82.0 % H % (45.5-73.1) Lymph % (Auto) 7.7 % L % (18.3-44.2) [place] % (Auto) 8.4 % % (2.6-8.5) Eos % (Auto) 0.7 % % (0-4.4) Baso % (Auto) 0.2 % % (0.2-1.2) Lymph # (Auto) 1.39 K/mm3 K/mm3 (0.9-3.2) [place] # (Auto) 1.5 K/mm3 H K/mm3 (0.1-0.6) Eos # (Auto) 0.1 K/mm3 K/mm3 (0-0.3) Baso # (Auto) 0.0 K/mm3 K/mm3 (0.0-0.1) Abs Immat Gran (auto) 0.18 K/mm3 H K/mm3 (0.00-0.031) Absolute Neuts (auto) 14.7 K/mm3 H K/mm3 (1.3-6.7) Absolute Nucleated RBC 0.0 K/mm3 K/mm3 (0.0-0.012) Nucleated RBC % 0.0 % % (0.0-0.2) Sodium 141 mmol/L mmol/L (137-145) Potassium 3.5 mmol/L mmol/L (3.4-5.0) Chloride 106 mmol/L mmol/L (98-107) Carbon Dioxide 23 mmol/L mmol/L (22-30) Anion Gap 12 mmol/L mmol/L (8-16) BUN 27 mg/dL H mg/dL (7-17) Creatinine 1.40 mg/dL H mg/dL (0.7-1.0) Estim Creat Clear Calc 29 ml/min ml/min Estimated GFR 36 L (59 - ) Glucose 86 mg/dL mg/dL (65-110) Calcium 8.6 mg/dL mg/dL (8.4-10.2) Total Bilirubin 1.6 mg/dL H mg/dL (0.2-1.3) AST 34 U/L U/L (14-36) ALT 21 U/L U/L (6-35) Alkaline Phosphatase 70 U/L U/L (38-126) Total Protein 7.0 g/dL g/dL (6.3-8.2) Albumin 3.6 g/dL g/dL (3.5-5.1) Lipase 22 U/L L U/L (23
--- NOTE | 2022-06-22 13:35 | PC.NURSE ---
On 06/22/22, the student, [Luci Diego], provided care and completed [facility] documentation on this patient. I have reviewed the student's documentation and agree with the findings.
[2022-06-22] MEDS: BUPIVACAINE/EPINEPHRINE 0.25% 50 ML VIAL 20 ML INFILTRATE (14:56)
--- NOTE | 2022-06-22 16:48 | W.PM.PROC2 ---
Procedure Note - Detailed Date of Procedure 06/22/22 Pre-op Diagnosis Acute Cholecystitis with cholelithiasis Post-op Diagnosis Other (Same plus choledocholithiasis) Procedure Performed Laparoscopic cholecystectomy with intraoperative cholangiogram Surgeon Gavin Ram MD Glassware Maker Charlie REILLY.OR Mushroom Sorter Grader Anesthesia General Indications Patient presented with constant epigastric pain. CT showed signs of possible gallbladder distension and thickening. Ultrasound confirmed gallstones and mild ductal dilation. Initial LFTs were normal but this morning bilirubin popped up to 1.6. Therefore, I plan to do a laparoscopic cholecystectomy prior to the 72 hour window was a time when the patient had her initial pain and to do a cholangiogram in view of the change in liver function tests. Findings Very distended tense reddish gallbladder. There was white bile when we aspirated it. Angiogram revealed a 7 mm distal common bile duct stone which some dye went past and went into the duodenum. However on repeat run of the cholangiogram it did not appear that the stone had passed with flushing using saline. Description of Procedure Procedure Details: Patient was seen preoperatively in the holding area and risks, benefits and alternatives confirmed. Patient was taken to the operating room and general anesthesia was induced. A time out was then preformed with the surgery team confirming patient and site of surgery. The abdomen was prepped and draped in the usual sterile fashion. Incision was made just below the umbilicus. Two stay sutures of O- Vicryl were used to elevate the mid-line fascia beneath the umbilicus and a small incision was made under direct vision. The peritoneum was entered. The 12 mm Baeza cannula was introduced under direct vision. First under low flow and then under high flow the abdomen was insufflated with carbon dioxide never exceeding a pressure of 14. Three trocars were then introduced under direct vision. The following trocars were introduced under direct vision: a 12 mm in the epigastrium and two 5 mm trocars along the right costal margin. There were significant adhesions of the omentum to the underside of the gallbladder and these were taken down with blunt and sharp dissection. Bovie cautery was used for hemostasis. Since the gallbladder was tense and we were unable to grasp it I did use the long aspirating needle and we aspirated 15 cc of white bile into a 20 cc syringe. This fluid was sent for an a aerobic, anaerobic culture and Gram stain. We then connected the day aspirating needle to suction and aspirated as much of the fluid out of the gallbladder as possible. We were then able to grasp it. The gall bladder was then grasped and the cystic duct and artery were dissected free and I carefully identified a window of safety with only two other structures in the area being the cystic duct and the cystic artery. I then used a 10 mm endo-clip dip filler to place 2 clips on the patient's side 1 on the gallbladder side on the cystic artery and just 1 clip on the gallbladder side of the cystic duct. A small hole was made in the cystic duct with endoshears and a cholagio-cath introduced. This was held in place with a single 10 mm clip. A cholangiogram was obtained revealing free flow into the cystic duct, common bile duct, common hepatic, right and left hepatic ducts with initially no flow into the duodenum but then after flushing with 10 cc of saline there was some flow into the duodenum but the dye then outlined what appeared to be a somewhat movable 7 mm distal common bile duct stone. 3-4 cholangiogram runs were done and there was some extravasation of dye from the cystic duct site however final conclusion was that there may be an obstructing 7 mm stone at the distal end of the common bile duct that did not pass on through into the duodenum during our cholangiogram. The catheter was removed and the cystic duct was clipped with a 10 mm endo
[2022-06-22] MEDS: SENNA/DOCUSATE SODIUM TABLET 2 TAB PO (21:41)
[2022-06-23] VITALS (14 sets, daily range): BP systolic 110–171; BP diastolic 56–109; PULSE 59–99; RESP 15–24; TEMP 36.3–37.1; O2SAT 92–100
[2022-06-23] MEDS: SODIUM CHLORIDE 0.9% IV 1,000 ML 75 ML IV CONT ×2 (03:00→22:11)
[2022-06-23 05:54] LABS: Basophils Percent Auto 0.1 % (0.2-1.2); Hematocrit 33.3 % (37.0-47.0); Hemoglobin 10.3 g/dL (12.0-15.0); Immature Granulocyte Absolute 0.16 K/mm3 (0.00-0.031); Immature Granulocyte Percent A 1.1 % (0-0.5); Immature Platelet Fraction Pct 7.8 % (0.9-11.2); Lymphocytes Absolute Auto 0.77 K/mm3 (0.9-3.2); Lymphocytes Percent Auto 5.5 % (18.3-44.2); Mean Corpuscular HGB Conc 30.9 g/dl (32-36); Mean Corpuscular Hemoglobin 27.3 pg (26-34); Mean Corpuscular Volume 88.3 fl (80-100); Mean Platelet Volume 11.1 fl (7.4-10.4); Monocytes Absolute Auto 0.7 K/mm3 (0.1-0.6); Monocytes Percent Auto 5.1 % (2.6-8.5); Neutrophils Absolute Auto 12.4 K/mm3 (1.3-6.7); Neutrophils Percent Auto 88.2 % (45.5-73.1); Platelet Count Result 127 k/mm3 (150-375); Red Blood Count 3.77 M/mm3 (4.2-5.4); Red Cell Distribution Width 15.9 % (11.5-14.5)
[2022-06-23 06:02] LABS: Alanine Aminotransferase 40 U/L (6-35); Albumin Level 3.3 g/dL (3.5-5.1); Alkaline Phosphatase 72 U/L (38-126); Anion Gap 10 mmol/L (8-16); Aspartate Amino Transferase 70 U/L (14-36); Bilirubin,Total 0.7 mg/dL (0.2-1.3); Blood Urea Nitrogen 32 mg/dL (7-17); Calcium 8.3 mg/dL (8.4-10.2); Carbon Dioxide 22 mmol/L (22-30); Chloride 107 mmol/L (98-107); Estimated CRCL calculation 29 ml/min; Estimated Glomerular Filt Rate 36; Glucose 124 mg/dL (65-110); Lipase 17 U/L (23-300); Potassium 3.8 mmol/L (3.4-5.0); Sodium 139 mmol/L (137-145)
--- NOTE | 2022-06-23 07:30 | WPDGICN ---
Assessment and Plan Assessment and plan (1) Choledocholithiasis: Code(s): K80.50 - Calculus of bile duct without cholangitis or cholecystitis without obstruction Status: Acute Plan patient is going to have ERCP today. Her case was discussed with Dr. Martinez and . Dr. Patel will be doing the procedure. GI Consult Note Consult date/time: 06/23/22 07:30 HPI: Leticia Nguyen is a 86 year old female With cholelithiasis who underwent laparoscopic cholecystectomy yesterday. OR cholangiogram revealed a filling defect in the distal common bile duct. Liver enzymes are barely elevated. She states that she never had liver disease or yellow jaundice. She is comfortable at this time but very thirsty. 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, Dyspnea on exertion Essential hypertension With prior hospitalizations for malignant hypertension in 2018 GERD (gastroesophageal reflux disease) History of DVT (deep vein thrombosis) Right popliteal vein 2015 on long-term anticoagulation with Xarelto History of stroke with residual deficit Ischemia Overactive bladder Seasonal rhinitis Spinal stenosis of lumbar region at multiple levels TIA (transient ischemic attack) With negative MRI December 2015 Urinary incontinence, mixed Vertigo Surgical History Surgical History H/O foot surgery BL H/O repair of rotator cuff Left History of appendectomy History of bilateral breast biopsy With benign pathology History of bilateral cataract extraction History of bladder suspension procedure With subsequent revision History of cardiac catheterization 16 years ago that was reportedly negative History of left knee replacement January 2012 History of spinal surgery cages is sacroiliac in right side History of total hysterectomy with bilateral salpingo-oophorectomy (BSO) Family History Family History Son Diabetes mellitus Enlarged heart Son Enlarged heart Father Pancreatic cancer Sibling Cancer Mother Emphysema lung Social History Social History Social History: Primary care physician: Dr. 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 Substance use: never Substance use type: does not use Additional living arrangements comments: She is and lives alone. She is independent in activities of daily living. She has 4 children. Her daughter and son-in-law live locally. Two of her sons live in [place] in the oldest son lives in [place]. her daughter Katelynn is a durable power methane gas collection system operator for healthcare Additional occupation/education comments: [employer] Gender identity (if verbalized by the patient): Female Sexual Orientation (if Verbalized by the Patient): Straight or Heterosexual Spiritual care concerns: No Agree to blood products: Yes Has the Lack of Transportation Kept You From Medical Appointments or From Getting Medications?: No Within the Past 12 Months, Were You Worried Whether Your Food Would Run Out Before You Got Money to Buy More?: Never True What is Your Housing Situation Today?: I Have Housing Are You Worried That in the Next 2 Months, You May Not Have Your Own Housing to Live In?: No Do You Have Trouble Paying Your Heati
--- NOTE | 2022-06-23 08:01 | PM.PNGS ---
Progress Note: A&P Assessment and Plan (1) Cholelithiasis with acute on chronic cholecystitis without biliary obstruction: Code(s): K80.12 - Calculus of gallbladder with acute and chronic cholecystitis without obstruction Status: Acute Assessment and Plan: Doing well postop day 1 status post laparoscopic cholecystectomy with IOC. Patient tolerating liquids but now in p.o. for possible ERCP. We have been able to contact Dr. Del Cid to may be able to proceed with ERCP later today. Patient, nurse, and Dr. Del Cid aware. (2) Choledocholithiasis: Code(s): K80.50 - Calculus of bile duct without cholangitis or cholecystitis without obstruction Status: Acute Assessment and Plan: This was discovered by intraoperative cholangiogram yesterday. Some dye passed the stone but there was a 7 mm stone toward the distal and the common bile duct outlined by I OC on the last run of her intraoperative cholangiogram yesterday during surgery. Bilirubin has come down so it may be floating in the distal CBD or may have passed. However, the patient needs to get back on anticoagulation because of her history of previous strokes. Therefore, it would be good to consider ERCP prior to discharge. Subjective Subjective Date/Time Seen: 06/23/22 08:01 Post Op day: 1 (Status post laparoscopic cholecystectomy with IOC.) Patient reports: feels better, pain is less and no bowel movement Interval history: Patient alert and awake. States that she definitely feels better than yesterday. No bowel movement overnight. She is not nauseated. She tolerated liquids until midnight last night. Now in p.o. for possible ERCP. Review of Systems Review of Systems: All systems reviewed & are unremarkable except as noted in HPI and below Constitutional: Constitutional: Reports as per HPI, Denies chills and Denies fever(s) Cardiovascular: Cardiovascular: Denies chest pain and Denies dyspnea Respiratory: Respiratory: Reports no additional respiratory complaints and Denies dyspnea Gastrointestinal: Gastrointestinal: Reports as per HPI and Denies bloating Musculoskeletal: Musculoskeletal: Reports no additional musculoskeletal complaints Psychiatric: Psychiatric: Denies anxiety Exam Const: General: cooperative, comfortable, alert and awake Orientation/consciousness: patient oriented x3 HENMT: Head: normal to inspection Mouth: Yes moist mucous membranes Eyes: Sclera: sclerae normal Pupils: Equal, round and reactive pupils present Neck: Neck: normal visual inspection and no JVD Chest: Chest palpation & inspection: normal inspection of the chest Resp: Effort & Inspection: normal respiratory effort Auscultation: clear to auscultation bilaterally GI: Inspection: incision (Clean and dry with surgical glue in place) and obesity Auscultation: normal bowel sounds Neuro: General: patient oriented x3 Cranial nerves: Yes Equal, round and reactive pupils present Objective Data Vital Signs Vital Signs: Vital Signs - 24 hr 06/22/22 11:53 06/22/22 09:00 06/22/22 13:00 Temperature 37.2 C Pulse Rate 84 83 Respiratory Rate 18 16 Blood Pressure 139/62 141/61 H Pulse Oximetry 99 98 98 Oxygen Delivery Nasal Cannula Room Air Oxygen Flow Rate 2 06/22/22 16:36 06/22/22 16:50 06/22/22 17:05 Temperature 36.4 C L Pulse Rate 82 78 64 Respiratory Rate 6 L 8 L 7 L Blood Pressure 129/59 L 138/66 144/69 H Pulse Oximetry 96 98 99 Oxygen Delivery Simple Face Mask Simple Face Mask Simple Face Mask Oxygen Flow Rate 8 8 8 06/22/22 17:15 06/22/22 17:20 06/22/22 17:35 Temperature Pulse Rate 76 71 81 Respiratory Rate 7 L 10 L 18 Blood Pressure 145/70 H 160/74 H 166/79 H Pulse Oximetry 100 95 Oxygen Delivery Simple Face Mask Simple Face Mask Nasal Cannula Oxygen Flow Rate 8 8 2 06/22/22 17:50 06/22/22 18:05 06/22/22 18:27 Temperature 36.4 C L Pulse Rate 69 68 84 Respiratory Rate 12 13 18 Blood Pressure 160/77
--- NOTE | 2022-06-23 08:17 | P.PNAN_ITS ---
Anes - Prog Note Post-Op Date/Time: 06/23/22 08:17 Cardiovascular status: normal Respiratory status: normal Airway patency: baseline Mental status: baseline Post-Op hydration status: normal Vital Signs: Last Vital Signs Temp 36.3 C L 06/23/22 04:01 Pulse 62 06/23/22 04:01 Resp 18 06/23/22 04:01 BP 139/56 L 06/23/22 04:01 Pulse Ox 92 06/23/22 04:01 O2 Del Method Nasal Cannula 06/22/22 20:00 O2 Flow Rate 2 06/22/22 20:00 Pain Score (VAS): 11/10 I/O: Intake & Output 06/22/22 06/23/22 06/23/22 23:59 07:59 15:59 Intake Total 0 50 Output Total 200 Balance -200 50 Laboratory Tests 06/23/22 05:26 06/23/22 05:26 06/23/22 06/23/22 05:26 05:26 WBC 14.0 H RBC 3.77 L Hgb 10.3 L Hct 33.3 L MCV 88.3 MCH 27.3 MCHC 30.9 L RDW 15.9 H Plt Count 127 L MPV 11.1 H Immature Gran % (Auto) 1.1 H Neut % (Auto) 88.2 H Lymph % (Auto) 5.5 L [place] % (Auto) 5.1 Eos % (Auto) 0.0 Baso % (Auto) 0.1 L Lymph # (Auto) 0.77 L [place] # (Auto) 0.7 H Eos # (Auto) 0.0 Baso # (Auto) 0.0 Abs Immat Gran (auto) 0.16 H Absolute Neuts (auto) 12.4 H Absolute Nucleated RBC 0.0 Nucleated RBC % 0.0 % Immature Plt Fraction 7.8 Sodium 139 Potassium 3.8 Chloride 107 Carbon Dioxide 22 Anion Gap 10 BUN 32 H Creatinine 1.40 H Estim Creat Clear Calc 29 Estimated GFR 36 L Glucose 124 H Calcium 8.3 L Total Bilirubin 0.7 AST 70 H ALT 40 H Alkaline Phosphatase 72 Total Protein 7.0 Albumin 3.3 L Lipase 17 L Post-procedural complaints: none Patient Feedback: Patient satisfied with anesthetic care.
[2022-06-23] MEDS: PANTOPRAZOLE SODIUM IV 40 MG VIAL IV PUSH (08:28)
[2022-06-23] MEDS: ENOXAPARIN 30 MG/0.3 ML SYRINGE SUB-Q (08:29)
--- NOTE | 2022-06-23 11:52 | PM.IMPN ---
Progress Note: A&P Assessment and Plan (1) Acute cholecystitis: Code(s): K81.0 - Acute cholecystitis Status: Acute Assessment and Plan: status post lap choly. Retained stone. GI to perform ERCP continue IV antibiotics (2) Dementia: Code(s): F03.90 - Unspecified dementia, unspecified severity, without behavioral disturbance, psychotic disturbance, mood disturbance, and anxiety Status: Acute Assessment and Plan: chronic and stable (3) Essential hypertension: Code(s): I10 - Essential (primary) hypertension Status: Acute Assessment and Plan: monitor blood pressure (4) GERD (gastroesophageal reflux disease): Code(s): K21.9 - Gastro-esophageal reflux disease without esophagitis Status: Acute Assessment and Plan: chronic (5) Chronic bronchitis: Code(s): J42 - Unspecified chronic bronchitis Status: Acute Assessment and Plan: chronic (6) Dizziness: Code(s): R42 - Dizziness and giddiness Status: Acute Assessment and Plan: chronic and stable (7) History of DVT (deep vein thrombosis): Code(s): Z86.718 - Personal history of other venous thrombosis and embolism Status: Acute Assessment and Plan: patient has a DVT back in 2016. Presumably this is why she is on Xarelto. This is on hold currently. Per report she also may be on Xarelto for history of CVA. Nonetheless this can be resume postop When okay with surgery. Subjective Date/time seen: 06/23/22 11:52 Doing okay Exam Narrative: General: alert and oriented Psych: appropriate mood nad affect Eyes: PERRLA Neck: Trachea midline, no new lesions Skin: no changes Lungs: CTA Cardiac: Normal S1,S2, no MGR ABD: soft, nd, nt, nbs Ext: no new lesions, no cce Vasc: Pulses intact Objective Data Vital Signs Vital Signs: Vital Signs - 24 hr 06/22/22 11:53 06/22/22 13:00 06/22/22 16:36 Temperature 99.0 F 97.5 F L Pulse Rate 84 83 82 Respiratory Rate 18 16 6 L Blood Pressure 139/62 141/61 H 129/59 L Pulse Oximetry 99 98 96 Oxygen Delivery Room Air Simple Face Mask Oxygen Flow Rate 8 06/22/22 16:50 06/22/22 17:05 06/22/22 17:15 Temperature Pulse Rate 78 64 76 Respiratory Rate 8 L 7 L 7 L Blood Pressure 138/66 144/69 H 145/70 H Pulse Oximetry 98 99 Oxygen Delivery Simple Face Mask Simple Face Mask Simple Face Mask Oxygen Flow Rate 8 8 8 06/22/22 17:20 06/22/22 17:35 06/22/22 17:50 Temperature Pulse Rate 71 81 69 Respiratory Rate 10 L 18 12 Blood Pressure 160/74 H 166/79 H 160/77 H Pulse Oximetry 100 95 96 Oxygen Delivery Simple Face Mask Nasal Cannula Nasal Cannula Oxygen Flow Rate 8 2 2 06/22/22 18:05 06/22/22 18:27 06/22/22 18:52 Temperature 97.5 F L 98.0 F Pulse Rate 68 84 66 Respiratory Rate 13 18 18 Blood Pressure 172/67 H 159/80 H 181/71 H Pulse Oximetry 96 98 95 Oxygen Delivery Nasal Cannula Oxygen Flow Rate 2 06/22/22 19:01 06/22/22 20:01 06/22/22 20:00 Temperature 97.7 F 97.3 F L Pulse Rate 62 60 60 Respiratory Rate 18 18 18 Blood Pressure 167/68 H 197/66 H Pulse Oximetry 97 97 97 Oxygen Delivery Nasal Cannula Oxygen Flow Rate 2 06/22/22 23:39 06/23/22 04:01 06/23/22 09:05 Temperature 97.1 F L 97.4 F L 97.8 F Pulse Rate 61 62 60 Respiratory Rate 18 18 16 Blood Pressure 143/62 H 139/56 L 160/61 H Pulse Oximetry 98 92 97 Oxygen Delivery Oxygen Flow Rate 06/23/22 08:25 06/23/22 11:40 Temperature 97.9 F Pulse Rate 59 L Respiratory Rate 20 Blood Pressure 110/85 Pulse Oximetry 94 Oxygen Delivery Room Air Oxygen Flow Rate Intake/Output Intake/Output: Intake & Output 06/20/22 06/21/22 06/22/22 06/23/22 23:59 23:59 23:59 23:59 Intake Total 1050 1800 1150 150 Output Total 1000 200 Balance 1050 800 950 150 Meds/Results Medications: Active Medications Generic Name Dose Route Start Last Admin Trade Name Freq AL
--- NOTE | 2022-06-23 13:50 | PC.NURSE ---
On 06/23/22, the student, [Madison Meza], provided care and completed [facility] documentation on this patient. I have reviewed the student's documentation and agree with the findings.
[2022-06-23] MEDS: LACTATED RINGERS 1,000 ML 150 ML IV CONT ×2 (14:10→15:38)
--- NOTE | 2022-06-23 14:21 | WPDANESEPPF ---
Anes - Initial Pre Proc Eval Procedure: Operation Date: 06/22/22 14:00 Proposed Procedures p Laparoscopic Cholecystectomy, Possible Intraoperative Cholangiogram, Possible Open - Gavin Ram MD Operation Date: 06/23/22 14:15 Proposed Procedures p Endoscopic Retro Cholangiopancreatogram - Addison Barker MD Date/Time: 06/23/22 14:21 Surgeon: Betsy Reveles DO Pre Op Diagnosis: Cholecystitis Patient Data Age: 86 Gender: F Height: 1.6 m Weight: 90 kg Last Vital Signs Temp 97.9 F 06/23/22 11:40 Pulse 94 06/23/22 13:40 Resp 18 06/23/22 13:40 BP 149/63 H 06/23/22 13:40 Pulse Ox 98 06/23/22 13:40 O2 Del Method Room Air 06/23/22 13:40 O2 Flow Rate 2 06/22/22 20:00 Allergies Allergy/AdvReac Type Severity Reaction Status Date / Time codeine Allergy Intermediate Swelling Verified 06/23/22 14:02 of Lip/Tongue/Throat shellfish derived Allergy Intermediate SWELLING Verified 06/23/22 14:02 fish derived Allergy Unknown SWELLING Verified 06/23/22 14:02 Home Medications Medication Instructions Recorded Confirmed Type aspirin 81 mg chewable tablet 81 mg PO DAILY #30 tabs 06/26/20 06/23/22 Rx ondansetron HCl 4 mg tablet 4 mg PO Q8H PRN nausea and 10/09/20 06/23/22 Rx (Zofran) vomiting #10 tabs budesonide-formoterol HFA 160 2 puff inhalation BID #10.2 grams 10/31/21 06/23/22 Rx mcg-4.5 mcg/actuation aerosol inhaler (Symbicort) amlodipine 10 mg tablet 10 mg PO DAILY #90 tabs 01/03/22 06/23/22 Rx omeprazole 20 mg capsule,delayed 20 mg PO DAILY #90 caps 01/25/22 06/23/22 Rx release albuterol sulfate 90 mcg/actuation 2 inh inhalation Q4H PRN shortness 05/01/22 06/23/22 Rx aerosol inhaler of breath or wheezing #8.5 grams citalopram 10 mg tablet See Rx Instructions .Route 05/01/22 06/23/22 Rx .COMPLEX #90 tabs meclizine 25 mg tablet See Rx Instructions .Route 05/01/22 06/23/22 Rx .COMPLEX #90 tabs rivaroxaban 20 mg tablet (Xarelto) 20 mg PO DAILY 06/20/22 06/23/22 History Laboratory Tests 06/23/22 06/23/22 05:26 05:26 WBC 14.0 K/mm3 H K/mm3 (4.5-10.0) RBC 3.77 M/mm3 L M/mm3 (4.2-5.4) Hgb 10.3 g/dL L g/dL (12.0-15.0) Hct 33.3 % L % (37.0-47.0) MCV 88.3 fl fl (80-100) MCH 27.3 pg pg (26-34) MCHC 30.9 g/dl L g/dl (32-36) RDW 15.9 % H % (11.5-14.5) Plt Count 127 k/mm3 L k/mm3 (150-375) MPV 11.1 fl H fl (7.4-10.4) Immature Gran % (Auto) 1.1 % H % (0-0.5) Neut % (Auto) 88.2 % H % (45.5-73.1) Lymph % (Auto) 5.5 % L % (18.3-44.2) [place] % (Auto) 5.1 % % (2.6-8.5) Eos % (Auto) 0.0 % % (0-4.4) Baso % (Auto) 0.1 % L % (0.2-1.2) Lymph # (Auto) 0.77 K/mm3 L K/mm3 (0.9-3.2) [place] # (Auto) 0.7 K/mm3 H K/mm3 (0.1-0.6) Eos # (Auto) 0.0 K/mm3 K/mm3 (0-0.3) Baso # (Auto) 0.0 K/mm3 K/mm3 (0.0-0.1) Abs Immat Gran (auto) 0.16 K/mm3 H K/mm3 (0.00-0.031) Absolute Neuts (auto) 12.4 K/mm3 H K/mm3 (1.3-6.7) Absolute Nucleated RBC 0.0 K/mm3 K/mm3 (0.0-0.012) Nucleated RBC % 0.0 % % (0.0-0.2) % Immature Plt Fraction 7.8 % % (0.9-11.2) Sodium 139 mmol/L mmol/L (137-145) Potassium 3.8 mmol/L mmol/L (3.4-5.0) Chloride 107 mmol/L mmol/L (98-107) Carbon Dioxide 22 mmol/L mmol/L (22-30) Anion Gap 10 mmol/L mmol/L (8-16) BUN 32 mg/dL H mg/dL (7-17) Creatinine 1.40 mg/dL H mg/dL (0.7-1.0) Estim Creat Clear Calc 29 ml/min ml/min Estimated GFR 36 L (59 - ) Glucose 124 mg/dL H mg/dL (65-110) Calcium 8.3 mg/dL L mg/dL (8.4-10.2) Total Bilirubin 0.7 mg/dL mg/dL (0.2-1.3) AST 70 U/L H U/L (14-36) ALT 40 U/L H U/L (6-35) Alkaline Phosphatase 72 U/L U/L (38-126) Total Protein 7.0 g/dL g/dL (6.3-8.2) Albumin 3.3 g/dL L g/dL (3.
[2022-06-23] MEDS: INDOMETHACIN 50 MG SUPP.RECT RECTAL (15:11)
--- NOTE | 2022-06-23 16:22 | SUR.PHASEII ---
Pt has inspiratory/expiratory wheezing. Respiratory therapy at bedside to give treatment.
[2022-06-23] MEDS: racEPINEPHrine 2.25% NEBU SOLN 0.5 ML VIAL.NEB INHALATION (16:27)
[2022-06-23] MEDS: MORPHINE SULFATE (*CRX) 4 MG/ML INJ IV PUSH (16:40)
[2022-06-23] MEDS: SENNA/DOCUSATE SODIUM TABLET 2 TAB PO (20:50)
[2022-06-24 02:00] VITALS: BP 142/65; PULSE 82; RESP 20; TEMP 37.2; O2SAT 93
[2022-06-24 05:50] VITALS: BP 157/68; PULSE 61; RESP 16; TEMP 36.4; O2SAT 95
[2022-06-24 05:50] LABS: Basophils Percent Auto 0.1 % (0.2-1.2); Hematocrit 28.6 % (37.0-47.0); Hemoglobin 9.2 g/dL (12.0-15.0); Immature Granulocyte Absolute 0.07 K/mm3 (0.00-0.031); Immature Granulocyte Percent A 0.9 % (0-0.5); Lymphocytes Absolute Auto 0.66 K/mm3 (0.9-3.2); Lymphocytes Percent Auto 8.5 % (18.3-44.2); Mean Corpuscular HGB Conc 32.2 g/dl (32-36); Mean Corpuscular Hemoglobin 27.1 pg (26-34); Mean Corpuscular Volume 84.4 fl (80-100); Mean Platelet Volume 11.3 fl (7.4-10.4); Monocytes Absolute Auto 0.5 K/mm3 (0.1-0.6); Monocytes Percent Auto 6.6 % (2.6-8.5); Neutrophils Absolute Auto 6.5 K/mm3 (1.3-6.7); Neutrophils Percent Auto 83.9 % (45.5-73.1); Platelet Count Result 130 k/mm3 (150-375); Red Blood Count 3.39 M/mm3 (4.2-5.4); Red Cell Distribution Width 16.2 % (11.5-14.5); White Blood Count 7.7 K/mm3 (4.5-10.0)
[2022-06-24 06:01] LABS: Alanine Aminotransferase 34 U/L (6-35); Albumin Level 3.1 g/dL (3.5-5.1); Alkaline Phosphatase 59 U/L (38-126); Anion Gap 13 mmol/L (8-16); Aspartate Amino Transferase 46 U/L (14-36); Bilirubin,Total 0.4 mg/dL (0.2-1.3); Blood Urea Nitrogen 35 mg/dL (7-17); Calcium 8.1 mg/dL (8.4-10.2); Carbon Dioxide 22 mmol/L (22-30); Chloride 109 mmol/L (98-107); Estimated CRCL calculation 31 ml/min; Estimated Glomerular Filt Rate 39; Glucose 149 mg/dL (65-110); Lipase 43 U/L (23-300); Potassium 3.4 mmol/L (3.4-5.0); Sodium 144 mmol/L (137-145)
--- NOTE | 2022-06-24 08:52 | PM.PNGS ---
Progress Note: A&P Assessment and Plan (1) Cholelithiasis with acute on chronic cholecystitis without biliary obstruction: Code(s): K80.12 - Calculus of gallbladder with acute and chronic cholecystitis without obstruction Status: Acute Assessment and Plan: Doing very well. Okay to discharge from surgical standpoint. Follow up Dr. Ram in 2 weeks. Discharge orders given. (2) Choledocholithiasis: Code(s): K80.50 - Calculus of bile duct without cholangitis or cholecystitis without obstruction Status: Acute Assessment and Plan: Status post successful ERCP this morning. Does not appear to have any complications of this procedure. Subjective Subjective Date/Time Seen: 06/24/22 08:52 Post Op day: 2 Patient reports: no new complaints, feels better, pain is less and afebrile Exam GI: Inspection: non-distended, incision (All incisions dry and healing well) and obesity GI Palp: Yes Soft to palpation and Yes Tenderness to palpation present (GI) (Mild appropriate tenderness) Objective Data Vital Signs Vital Signs: Vital Signs - 24 hr 06/23/22 09:05 06/23/22 11:40 06/23/22 12:01 Temperature 36.6 C 36.6 C Pulse Rate 60 59 L Respiratory Rate 16 20 Blood Pressure 160/61 H 110/85 Pulse Oximetry 97 94 92 Oxygen Delivery Room Air Oxygen Flow Rate 06/23/22 13:40 06/23/22 15:43 06/23/22 15:53 Temperature 37.1 C Pulse Rate 94 99 94 Respiratory Rate 18 15 24 H Blood Pressure 149/63 H 161/108 H 171/109 H Pulse Oximetry 98 100 100 Oxygen Delivery Room Air Simple Face Mask Simple Face Mask Oxygen Flow Rate 10 10 06/23/22 16:03 06/23/22 16:13 06/23/22 16:23 Temperature Pulse Rate 95 70 79 Respiratory Rate 24 H 23 H 21 H Blood Pressure 167/100 H 163/99 H 166/96 H Pulse Oximetry 100 100 100 Oxygen Delivery Simple Face Mask Simple Face Mask Simple Face Mask Oxygen Flow Rate 10 10 10 06/23/22 16:33 06/23/22 16:43 06/23/22 18:50 Temperature 36.5 C Pulse Rate 87 82 70 Respiratory Rate 17 17 16 Blood Pressure 157/85 H 149/72 H 145/60 H Pulse Oximetry 99 96 96 Oxygen Delivery Room Air Room Air Oxygen Flow Rate 06/23/22 19:52 06/23/22 20:50 06/24/22 02:00 Temperature 36.5 C 37.2 C Pulse Rate 68 82 Respiratory Rate 16 20 Blood Pressure 114/83 142/65 H Pulse Oximetry 96 93 Oxygen Delivery Room Air Oxygen Flow Rate 06/24/22 05:50 Temperature 36.4 C Pulse Rate 61 Respiratory Rate 16 Blood Pressure 157/68 H Pulse Oximetry 95 Oxygen Delivery Oxygen Flow Rate Intake/Output Intake/Output: Intake & Output 06/21/22 06/22/22 06/23/22 06/24/22 23:59 23:59 23:59 23:59 Intake Total 1800 1150 3160 433 Output Total 1000 200 Balance 285 323 2102 433 Meds/Results Medications: Active Medications Generic Name Dose Route Start Last Admin Trade Name Freq PRN Reason Stop Dose Admin Acetaminophen 500 mg 06/22/22 18:16 Acetaminophen 500 Mg Tablet PO Q6H PRN Mild Pain (1-3) or Fever Diphenhydramine HCl 25 mg 06/22/22 18:16 Diphenhydramine Hcl Inj 50 Mg/Ml Vial IV PUSH Q6H PRN Itching Enoxaparin Sodium 30 mg 06/23/22 09:00 06/23/22 08:29 Enoxaparin 30 Mg/0.3 Ml Syringe SUB-Q 30 mg DAILY DARREN Administration Hydralazine HCl 10 mg 06/21/22 05:20 06/21/22 05:41 Hydralazine Hcl 20 Mg/Ml Vial IV PUSH 10 mg Q4H PRN Administration Blood Pressure - High Sodium Chloride 1,000 mls @ 75 mls/hr 06/20/22 21:55 06/23/22 22:11 Normal Saline Iv IV CONT 75 mls/hr .[id number] DARREN Administration Piperacillin Sod/Tazobactam Sod 2.25 gm in 50 mls @ 100 mls/hr 06/23/22 18:00 06/24/22 06:25 Zosyn 2.25 Gm/D5w 50 Ml IVPB Infused Q6H DARREN Infusion Morphine Sulfate 4 mg 06/20/22 21:53 06/23/22 16:40 Morphine Sulfate (*Crx) 4 Mg/Ml Inj IV PUSH 4 mg Q2H PRN Administration Pain Rated 7-10 Naloxone HCl 0.1 mg 10/20/22 18:16 Naloxone Hcl 0.4 Mg/Ml Vial IV PUSH
[2022-06-24] MEDS: IPRATROPIUM BR 0.02% INH SOLN 0.5 MG/2.5 ML VIAL INHALATION (10:12)
--- NOTE | 2022-06-24 10:17 | PM.DS ---
DS: Admitting Diagnosis Discharge Date June 24, 2022 Admitting Diagnosis acute cholecystitis DS: Discharge Diagnosis Discharge Diagnosis (1) Acute cholecystitis: Code(s): K81.0 - Acute cholecystitis Status: Acute Assessment and Plan: status post lap choly. Retained stone. GI to perform ERCP continue IV antibiotics (2) Dementia: Code(s): F03.90 - Unspecified dementia, unspecified severity, without behavioral disturbance, psychotic disturbance, mood disturbance, and anxiety Status: Acute Assessment and Plan: chronic and stable (3) Essential hypertension: Code(s): I10 - Essential (primary) hypertension Status: Acute Assessment and Plan: monitor blood pressure (4) GERD (gastroesophageal reflux disease): Code(s): K21.9 - Gastro-esophageal reflux disease without esophagitis Status: Acute Assessment and Plan: chronic (5) Chronic bronchitis: Code(s): J42 - Unspecified chronic bronchitis Status: Acute Assessment and Plan: chronic (6) Dizziness: Code(s): R42 - Dizziness and giddiness Status: Acute Assessment and Plan: chronic and stable (7) History of DVT (deep vein thrombosis): Code(s): Z86.718 - Personal history of other venous thrombosis and embolism Status: Acute Assessment and Plan: patient has a DVT back in 2016. Presumably this is why she is on Xarelto. This is on hold currently. Per report she also may be on Xarelto for history of CVA. Nonetheless this can be resume postop When okay with surgery. DS: Summary Hospital Course Hospital Course: 86-year-old came in with acute cholecystitis. Status post cholecystectomy with retained stone. ERCP performed to remove stone. Follow GI surgery and primary care Time Spent with Patient Time attestation: Total time spent providing and/or coordinating discharge services: Exam Narrative: General: alert and oriented Psych: appropriate mood nad affect Eyes: PERRLA Neck: Trachea midline, no new lesions Skin: no changes Lungs: CTA Cardiac: Normal S1,S2, no MGR ABD: soft, nd, nt, nbs Ext: no new lesions, no cce Vasc: Pulses intact DS: Data Data Completed and Pending Pending studies at discharge: Pending at discharge 06/22/22 14:36 Surgical [PTH] Routine Labs on day of discharge: Labs from last 24 hours 06/24/22 06/24/22 04:41 04:41 WBC 7.7 RBC 3.39 L Hgb 9.2 L Hct 28.6 L MCV 84.4 MCH 27.1 MCHC 32.2 RDW 16.2 H Plt Count 130 L MPV 11.3 H Immature Gran % (Auto) 0.9 H Neut % (Auto) 83.9 H Lymph % (Auto) 8.5 L [place] % (Auto) 6.6 Eos % (Auto) 0.0 Baso % (Auto) 0.1 L Lymph # (Auto) 0.66 L [place] # (Auto) 0.5 Eos # (Auto) 0.0 Baso # (Auto) 0.0 Abs Immat Gran (auto) 0.07 H Absolute Neuts (auto) 6.5 Absolute Nucleated RBC 0.0 Nucleated RBC % 0.0 Sodium 144 Potassium 3.4 Chloride 109 H Carbon Dioxide 22 Anion Gap 13 BUN 35 H Creatinine 1.30 H Estim Creat Clear Calc 31 Estimated GFR 39 L Glucose 149 H Calcium 8.1 L Total Bilirubin 0.4 Direct Bilirubin 0.0 AST 46 H ALT 34 Alkaline Phosphatase 59 Total Protein 6.0 L Albumin 3.1 L Lipase 43 Preliminary micro results at discharge 06/22/22 14:45 Anaerobic Culture - Preliminary Bile Aerobic Culture - Preliminary Discharge Plan Discharge Attending physician on discharge: Roosevelt Powers Consulting providers: Gavin Ram ; Ricardo Del Cid ; Addison Barker Discharging Clinician: Roosevelt Powers Patient Disposition: Home, Self-Care Activity: may shower, no straining and as tolerated Diet: low fat Wound Care Instructions: incision open to air Discharge Instructions: Laparoscopic cholecystectomy discharge instructions Ambulate at least 3 times a day Avoid greasy and fatty foods Stairs are okay Okay to bathe
--- NOTE | 2022-06-24 10:23 | WPDANESPN ---
Anes - Prog Note Post-Op Date/Time: 06/24/22 10:23 Cardiovascular status: normal Respiratory status: normal Airway patency: baseline Mental status: baseline Post-Op hydration status: normal Vital Signs: Last Vital Signs Temp 36.4 C 06/24/22 05:50 Pulse 61 06/24/22 05:50 Resp 16 06/24/22 05:50 BP 157/68 H 06/24/22 05:50 Pulse Ox 95 06/24/22 05:50 O2 Del Method Room Air 06/23/22 20:50 O2 Flow Rate 10 06/23/22 16:23 Pain Score (VAS): 0 I/O: Intake & Output 06/23/22 06/24/22 06/24/22 23:59 07:59 15:59 Intake Total 2009 433 120 Balance 2009 433 120 Laboratory Tests 06/24/22 04:41 06/24/22 04:41 06/24/22 06/24/22 04:41 04:41 WBC 7.7 RBC 3.39 L Hgb 9.2 L Hct 28.6 L MCV 84.4 MCH 27.1 MCHC 32.2 RDW 16.2 H Plt Count 130 L MPV 11.3 H Immature Gran % (Auto) 0.9 H Neut % (Auto) 83.9 H Lymph % (Auto) 8.5 L [place] % (Auto) 6.6 Eos % (Auto) 0.0 Baso % (Auto) 0.1 L Lymph # (Auto) 0.66 L [place] # (Auto) 0.5 Eos # (Auto) 0.0 Baso # (Auto) 0.0 Abs Immat Gran (auto) 0.07 H Absolute Neuts (auto) 6.5 Absolute Nucleated RBC 0.0 Nucleated RBC % 0.0 Sodium 144 Potassium 3.4 Chloride 109 H Carbon Dioxide 22 Anion Gap 13 BUN 35 H Creatinine 1.30 H Estim Creat Clear Calc 31 Estimated GFR 39 L Glucose 149 H Calcium 8.1 L Total Bilirubin 0.4 Direct Bilirubin 0.0 AST 46 H ALT 34 Alkaline Phosphatase 59 Total Protein 6.0 L Albumin 3.1 L Lipase 43 Microbiology 06/22/22 14:45 Bile Anaerobic Culture - Preliminary 06/22/22 14:45 Bile Aerobic Culture - Preliminary Post-procedural complaints: none Patient Feedback: Patient satisfied with anesthetic care.
[2022-06-24] MEDS: PANTOPRAZOLE 40 MG TABLET PO (10:42)
[2022-06-24] MEDS: ENOXAPARIN 30 MG/0.3 ML SYRINGE SUB-Q (10:44)
[2022-06-24] MEDS: ACETAMINOPHEN 500 MG TABLET PO (10:53)
== END 2022-06-24 11:30 | disposition home or self-care (01) ==
LOC: ANHED 19:54 → ANH2MED 06-21 13:51
PROVIDERS: Emergency Medicine; Internal Medicine Gastroenterology; Surgery; Admitting Provider Chiropractor; Emergency Provider Emergency Medicine; PCP Internal Medicine; Visit Provider Chiropractor
PROC: 0FT44ZZ Resection of Gallbladder, Percutaneous Endoscopic Approach (ICD-10-PCS; CPT 47562; principal; 2022-06-22 14:00)
PROC: (CPT 43260; principal; 2022-06-23 14:15)
DX: K80.42 Calculus of bile duct with acute cholecystitis without obstruction (principal); F03.90 Unspecified dementia, unspecified severity, without behavioral disturbance, psychotic disturbance, mood disturbance, and anxiety; I10 Essential (primary) hypertension; K21.9 Gastro-esophageal reflux disease without esophagitis; J42 Unspecified chronic bronchitis; R42 Dizziness and giddiness; Z20.822 Contact with and (suspected) exposure to COVID-19; G47.33 Obstructive sleep apnea (adult) (pediatric); E66.9 Obesity, unspecified; Z68.35 Body mass index [BMI] 35.0-35.9, adult; R32 Unspecified urinary incontinence; Z77.22 Contact with and (suspected) exposure to environmental tobacco smoke (acute) (chronic); F10.90 Alcohol use, unspecified, uncomplicated; Z79.82 Long term (current) use of aspirin; Z86.73 Personal history of transient ischemic attack (TIA), and cerebral infarction without residual deficits; Z86.718 Personal history of other venous thrombosis and embolism; Z79.01 Long term (current) use of anticoagulants; Z79.51 Long term (current) use of inhaled steroids; Z79.899 Other long term (current) drug therapy; Z83.6 Family history of other diseases of the respiratory system
CPT/HCPCS: 43262; 43264; 47563; 36415; 74177; 74300; 74329; 76705; 80048; 80053; 80076; 81001; 83690; 84484; 85025; 85055; 86850; 86900; 86901; 87070; 87075; 87205; 88304; 93005; 96361; 96365; 96366; 96367; 96375; 99285; A9270; C1713; C9113; C9803; G0378; J0131; J0330; J0360; J1100; J1170; J1650; J1885; J2270; J2405; J2543; J2704; J2710; J3010; J7030; J7120; Q9966; Q9967; U0003; U0005

== ENCOUNTER 2022-09-06 10:00 | Outpatient (RCR) | payer MEDICARE, MEDICAID, SELFPAY ==
--- NOTE | 2022-05-03 09:23 | PCPTNOTE ---
Patient did not show up for scheduled initial evaluation this date.
--- NOTE | 2022-08-01 17:07 | PTOPEVAL1 ---
Assessment and note entered by Eve Alonzo, PT, DPT Evaluation Information Assessment Status Evaluation Diagnosis repeated falls, L leg pain Subjective Information Pt states her left leg has been causing for many years. Pt states she has fallen about 4 times in the last 6 months. Her daughter states when she falls they have a hard time getting her back up. Pts daughter states the patient started therapy about 6 months ago and quit going. Her falls are not a new thing. Pt states she has also had about 4 strokes in the past. Reported Pain Level Pain Score 0: Self Report Assessment PT Clinical Summary Leticia Brice presents to therapy today her initial evaluation with a diagnosis of repeated falls. Today she demonstrates fair LE strength. She reports dizziness has been a contributing factor in her increase in falls. She did have a positive Diane Hallpike today and further vestibular treatments will added into her POC. She also demonstrates significant gait deviation with improper use of her cane. She will benefit from skilled therapy to address her strength and balance deficits, her reports of dizziness, her gait deviations, to promote safety, and to improve her baseline functional mobility. Plan of Care Interventions Gait Training,Manual Therapy,Neuro Re-education, Patient/Caregiver Educati,Therapeutic Activities, Therapeutic Exercise PT Services Indicated Yes Treatment Frequency and 2x/wk for 5 wks Duration These treatments will address the objective and functional deficits as defined above. The patient will be advanced safely and appropriately in order for the patient to progress towards his/her prior level of function. Additional exercises will be introduced and as well as a comprehensive home exercise program upon discharge, if needed, ?to ensure carryover of functional gains achieved in the clinic. This treatment plan has been reviewed and agreement upon by the patient.
--- NOTE | 2022-08-24 11:42 | PCPTNOTE ---
Patient did not show up for scheduled appointment this date.
--- NOTE | 2022-09-06 10:59 | PTOPDC ---
Assessment and note entered by Eve Alonzo, PT, DPT Evaluation Information Assessment Status Progress Diagnosis repeated falls, L leg pain Subjective Information Pt states overall she is fine . She reports no falls in the last month. She reports her dizziness has also improved since starting therapy. She reports less knee pain and an improved ability to get around. She states she used to hold on to chairs, quarles, ect when walking around her home, but she does not do this anymore. Pt reports 75% improvement in overall symptoms. Reported Pain Level Pain Score 0,2: Self Report Assessment PT Clinical Summary Leticia presents to therapy today for her progress report following 7 visits of skilled therapy to treat her L leg pain and repeated falls. Today she demonstrates significant improvements. She scores a 19/24 on the DGI, a 47/56 on the CANALES, and increased her distance covered during the 2 min walk test from 190ft to 305ft. She has met all of her functional goals at this time and reports no limitations at this time. She no longer requires skilled therapy services and will be discharged at this time. Plan of Care PT Services Indicated No Treatment Frequency and to be discharged Duration
== END 2022-09-06 16:02 | disposition home or self-care (01) ==
LOC: ANHGOSHPT 10:00
PROVIDERS: PCP Internal Medicine; Visit Provider Internal Medicine
DX: R29.898 Other symptoms and signs involving the musculoskeletal system (principal); R29.6 Repeated falls
CPT/HCPCS: 97110; 97112; 97116; 97161; 97530; 99199

== ENCOUNTER 2023-03-09 10:00 | Outpatient (CLI) | payer MEDICARE, MEDICAID, SELFPAY ==
[2023-03-09 18:33] LABS: Basophils Percent Auto 0.6 % (0.2-1.2); Eosinophils Absolute Auto 0.3 K/mm3 (0-0.3); Hematocrit 39.5 % (37.0-47.0); Hemoglobin 12.4 g/dL (12.0-15.0); Immature Granulocyte Absolute 0.02 K/mm3 (0.00-0.031); Immature Granulocyte Percent A 0.3 % (0-0.5); Lymphocytes Absolute Auto 1.52 K/mm3 (0.9-3.2); Lymphocytes Percent Auto 21.7 % (18.3-44.2); Mean Corpuscular HGB Conc 31.4 g/dl (32-36); Mean Corpuscular Volume 89.2 fl (80-100); Mean Platelet Volume 11.7 fl (7.4-10.4); Monocytes Absolute Auto 0.9 K/mm3 (0.1-0.6); Monocytes Percent Auto 12.3 % (2.6-8.5); Neutrophils Absolute Auto 4.3 K/mm3 (1.3-6.7); Neutrophils Percent Auto 61.1 % (45.5-73.1); Platelet Count Result 142 k/mm3 (150-375); Red Blood Count 4.43 M/mm3 (4.2-5.4)
[2023-03-09 18:36] LABS: Anion Gap 8 mmol/L (8-16); Blood Urea Nitrogen 39 mg/dL (7-17); Calcium 9.4 mg/dL (8.4-10.2); Carbon Dioxide 24 mmol/L (22-30); Chloride 110 mmol/L (98-107); Estimated Glomerular Filt Rate 36; Glucose 106 mg/dL (65-110); Potassium 4.2 mmol/L (3.4-5.0); Sodium 142 mmol/L (137-145)
[2023-03-09 18:39] LABS: Iron 69 ug/dL (37-170)
[2023-03-09 18:48] LABS: Percent Iron Saturation 19 % (20-50)
[2023-03-09 19:36] LABS: Folic Acid 9.1 ng/mL (2.76->20)
== END 2023-03-09 10:01 | disposition home or self-care (01) ==
LOC: ANHGOSHLAB 10:01
PROVIDERS: PCP Internal Medicine; Visit Provider Clinical Nurse Specialist
DX: D64.9 Anemia, unspecified (principal); I10 Essential (primary) hypertension; R42 Dizziness and giddiness
CPT/HCPCS: 36415; 80048; 82607; 82728; 82746; 83540; 83550; 84443; 85025

== ENCOUNTER 2023-06-12 21:50 | Inpatient (IN) | payer MEDICARE, MEDICAID, SELFPAY ==
[2023-06-12] VITALS (14 sets, daily range): BP systolic 130–197; BP diastolic 95–130; PULSE 85–117; RESP 16–31; TEMP 37.4–38.3; O2SAT 90–100
--- NOTE | ~2023-06-12 | XR_ITS ---
EXAMINATION: XR abdomen gastric tube insert INDICATION: Nasogastric tube placement TECHNIQUE: Portable AP KUB-NG at 2227 hours COMPARISON: None available FINDINGS: The tip of the nasogastric tube is in the stomach. The proximal side port is near the gastr oesophageal junction. The visualized lung bases are clear. Surgical clips in the right upper quadrant are likely from prior cholecystectomy. There are changes of sacroiliac fusion on the right. IMPRESSION: 1. Tip of the nasogastric tube in the stomach with proximal side port near the gastroesophageal junct ion. Recommend advancing 3 to 4 cm. Reviewed, dictated and finalized at location F. IMPRESSION: 1. Tip of the nasogastric tube in the stomach with proximal side port near the gastroesophageal junction. Recommend advancing 3 to 4 cm.
--- NOTE | ~2023-06-12 | CT_ITS ---
EXAMINATION: CT brain wo con INDICATION: Altered mental status, unresponsive, hypertension COMPARISON: 01/11/2022 TECHNIQUE: Standard unenhanced head CT. The dose-length product (DLP) was 681.00 mGy-cm. The mA was a djusted according to patient size. Iterative reconstruction technique was employed. FINDINGS: There is a large acute intraparenchymal hemorrhage involving the right frontal and parietal lobes measuring approximately 9.5 x 5.5 cm. There are 15 mm of wiosi-ex-ogwu midline shift. There is near complete effacement of the right lateral ventricle. There is intraventricular hemorrhage in the posterior horn of the left lateral ventricle. Areas of subarachnoid hemorrhage are noted in right fr ontal lobe. Intracranial calcified cerebral atherosclerosis is noted. Changes in the globes are likel y from ocular lens surgery. The visualized sinuses and mastoid air cells are well aerated. IMPRESSION: 1. Large right-sided intraparenchymal hemorrhage with vtpcq-gj-cptq midline shift and intraventricula r hemorrhage in the posterior horn of the left lateral ventricle. As per stroke protocol, I called these results to the Emergency Department, and discussed with Dr. Adal Alcantara MD at 2301 hours on 06/12/2023. Reviewed, dictated and finalized at location F. IMPRESSION: 1. Large right-sided intraparenchymal hemorrhage with gfmyz-am-rpkw midline jennifer ft and intraventricular hemorrhage in the posterior horn of the left lateral ve ntricle. As per stroke protocol, I called these results to the Emergency Department, and discussed with Dr. Manju Alcantara MD at 2301 hours on 06/12/2023.
--- NOTE | ~2023-06-12 | XR_ITS ---
EXAMINATION: XR chest ET placement INDICATION: Respiratory failure TECHNIQUE: Portable AP chest at 2224 hours COMPARISON: 12/24/2021 FINDINGS: The endotracheal tube ends 5 mm above the brayden. The lungs are free of acute opacities. Th e nasogastric tube is followed as far as the stomach. Its tip is beyond the inferior margin of the ra diograph. No pleural effusion or pneumothorax. The cardiomediastinal silhouette is normal. IMPRESSION: 1. Endotracheal tube approximately 5 mm above the brayden. Consider repositioning. Reviewed, dictated and finalized at location F. IMPRESSION: 1. Endotracheal tube approximately 5 mm above the brayden. Consider repositionin g.
--- NOTE | 2023-06-12 21:59 | ECG_ITS ---
Measurements Intervals Downs Rate: 111 P: 57 DE: 120 QRS: -20 QRSD: 79 T: 41 QT: 339 QTc: 461 Interpretive Statements SINUS TACHYCARDIA WITH OCCASIONAL VENTRICULAR PREMATURE COMPLEXES POSSIBLE LEFT ATRIAL ENLARGEMENT [-0.1mV P WAVE IN V1/V2] POSSIBLE LEFT VENTRICULAR HYPERTROPHY [VOLTAGE CRITERIA PLUS LAE OR QRS WIDENING] INFERIOR ST SEGMENT ELEVATION, ACUTE INJURY PATTERN ABNORMAL ECG Electronically Signed On 06-13-2023 10:29:39 CDT by Janes Mesa M.D.
--- NOTE | 2023-06-12 22:00 | PC.NURSE ---
2199-Resp at bedside. 2200-Etomidate 20mg given 2200-Succs 100mg given 2201-Pt being bagged 2202-Intubated, color change pos, 24 at the lip 2203-Will 60mg given 2205-Xray notified for post film 0-NG L nare placed, propofol started.
[2023-06-12] MEDS: PROPOFOL IV EMULSION 100 ML 2.37 MG IV CONT (22:10)
[2023-06-12 23:30] LABS: Triglycerides 79 mg/dL (<150)
[2023-06-12 23:31] LABS: Immature Granulocyte Absolute 0.01 K/mm3 (0.00-0.031); Immature Granulocyte Percent A 0.3 % (0-0.5); Lymphocytes Absolute Auto 0.31 K/mm3 (0.9-3.2); Lymphocytes Percent Auto 8.7 % (18.3-44.2); Mean Corpuscular HGB Conc 29.5 g/dl (32-36); Mean Corpuscular Hemoglobin 28.6 pg (26-34); Mean Corpuscular Volume 96.9 fl (80-100); Mean Platelet Volume 11.1 fl (7.4-10.4); Monocytes Absolute Auto 0.4 K/mm3 (0.1-0.6); Monocytes Percent Auto 10.4 % (2.6-8.5); Neutrophils Absolute Auto 2.9 K/mm3 (1.3-6.7); Neutrophils Percent Auto 80.6 % (45.5-73.1); Platelet Count Result 30 k/mm3 (150-375); Red Blood Count 1.61 M/mm3 (4.2-5.4); White Blood Count 3.6 K/mm3 (4.5-10.0)
[2023-06-12 23:33] LABS: INR 3.8; Prothrombin Time 40.7 Seconds (11.1-14.7)
[2023-06-12 23:34] LABS: Partial Thromboplastin Time 59.1 SECONDS (22.3-36.8)
[2023-06-12 23:35] LABS: Hematocrit 15.6 % (37.0-47.0); Hemoglobin 4.6 g/dL (12.0-15.0)
[2023-06-12 23:36] LABS: Alveolar/Arterial O2 Gradient 225.4 mmHg; Base Excess ABG 1.8 mEq/l (+/-2.0); Fractional Inspired Oxygen 50 %; HCO3 ABG 25.4 mEq/l (22.0-26.0); Oxygen Content ABG 20.6 %vol (16.0-22.0); Oxygen Saturation ABG 97.2 % (95.0-100.0); Oxyhemoglobin 95.6 % THb (90.0-100.0); PCO2 ABG 36.9 mmHg (35.0-45.0); PO2 ABG 89.6 mmHg (80.0-100.0); PO2 FiO2 Ratio Arterial Blood 1.79 %; Total Hemoglobin 15.3 g/dL (12.0-18.0); pH ABG 7.456 (7.350-7.450)
[2023-06-12 23:37] LABS: Alanine Aminotransferase 10 U/L (6-35); Anion Gap 2 mmol/L (8-16); Aspartate Amino Transferase 30 U/L (14-36); Bilirubin,Total 0.4 mg/dL (0.2-1.3); Blood Urea Nitrogen 16 mg/dL (7-17); Calcium 2.1 mg/dL (8.4-10.2); Carbon Dioxide 8 mmol/L (22-30); Chloride 132 mmol/L (98-107); Estimated Glomerular Filt Rate > 60; Glucose 51 mg/dL (65-110); Potassium < 2.0 mmol/L (3.4-5.0); Sodium 142 mmol/L (137-145)
[2023-06-12 23:37] LABS: Lactic Acid Reflex 0.6 mmol/L (0.7-2.0)
[2023-06-12 23:38] LABS: Device VENTILATOR; Modified Allen's Test Pass; Site Drawn LEFT RADIAL
[2023-06-12 23:40] LABS: Arterial Blood Gas PEEP 8 cmH2O; Arterial Blood Gas Tidal Volume 420 ml; Arterial Blood Gas Vent Mode CMV
[2023-06-12 23:41] LABS: Arterial Blood Gas Ventilator rate 18 /MIN
[2023-06-12 23:42] LABS: Peak Inspiratory Pressure 27 cmH2O
[2023-06-12 23:44] LABS: NT Pro B Type Natriuretic Pept 16200 pg/mL (19.9-100)
[2023-06-12] MEDS: LABETALOL HCL INJ 100 MG/20 ML VIAL 10 MG IV PUSH (23:44)
[2023-06-12 23:45] LABS: Appearance Urine Cloudy (Clear); Bacteria Urine None Seen /hpf; Bilirubin Urine 1+ (Negative); Blood Urine 3+ (Negative); Color Urine Dark Yellow (Yellow); Glucose Urine UA Negative (Negative); Ketones Urine Trace mg/dL (Negative); Leukocyte Esterase Ur Negative LEU/UL (Negative); Need Manual Microscopic Reviewed; Nitrate Urine Negative (Negative); Non Pathogenic Casts >20; Protein Urine 4+ mg/dL (Negative); Squamous Epithelial Cell Urine Few /hpf (Few); Urobilinogen Urine 0.2 mg/dL (<2.0); WBC Urine 0-5 /hpf; pH Urine 6.5 (5.0-9.0)
[2023-06-12 23:49] LABS: Albumin Level < 1.0 g/dL (3.5-5.1); Total Protein < 2.0 g/dL (6.3-8.2)
[2023-06-12 23:50] LABS: Alkaline Phosphatase < 20 U/L (38-126)
[2023-06-12 23:53] LABS: Anisocytosis 1+ (NORMAL); Burr Cells 2+ (NORMAL); Platelet Estimate Decreased (Adequate); Polychromasia 1+ (NORMAL); Schistocytes Rare (NORMAL)
[2023-06-12 23:54] LABS: Add Urine Microscopic? YES; Specific Grav Ur 1.039 (1.001-1.035)
--- NOTE | 2023-06-12 23:57 | PC.NURSE ---
Call received from lab to CN of possible diluted labs. Will redraw.
[2023-06-13] VITALS (15 sets, daily range): BP systolic 94–185; BP diastolic 55–112; PULSE 84–126; RESP 20–42; TEMP 36.4–38.4; O2SAT 80–98; BMI 31.6
[2023-06-13 00:06] LABS: Influenza A QL RT-PCR Negative (Negative); Influenza B QL RT-PCR Negative (Negative); RSV RNA, RT-PCR Negative (Negative); SARS-CoV-2 RNA PCR Negative (Negative)
--- NOTE | 2023-06-13 00:21 | PC.NURSE ---
Pt extubated by ER MD. Family at bedside. Oral care swabs provided.
[2023-06-13] MEDS: MORPHINE SULFATE (*CRX) 4 MG/ML INJ IV PUSH ×2 (00:43→03:08)
--- NOTE | 2023-06-13 01:18 | ED.AMS ---
HPI - Altered Mental Status General Chief Complaint: Altered Mental Status Stated Complaint: UNRESPONSIVE History of Present Illness HPI narrative: Patient brought into the emergency department by EMS. Patient was found unresponsive by her daughter. Patient had vomited a significant amount of emesis. Patient has agonal respirations upon arrival. Pupils are pinpoint and she is not purposeful. Per family, patient was alert and oriented and active yesterday. She lives alone. Related Data Allergies Allergy/AdvReac Type Severity Reaction Status Date / Time codeine Allergy Intermediate Swelling Verified 05/01/23 11:27 of Lip/Tongue/Throat shellfish derived Allergy Intermediate SWELLING Verified 05/01/23 11:27 fish derived Allergy Unknown SWELLING Verified 05/01/23 11:27 Review of Systems Review of Systems: Unable to obtain review of systems due to patient's medical status [facility] Past Medical History Medical History Acute kidney failure, unspecified Chronic bronchitis PFTs May 2018 demonstrating mild restrictive him euoj-gb-eussjiyg obstructive disease of the small airways CKD (chronic kidney disease) stage 3, GFR 30-59 ml/min CVA (cerebral vascular accident) multiple x6, Dyspnea on exertion Essential hypertension With prior hospitalizations for malignant hypertension in 2018 GERD (gastroesophageal reflux disease) History of DVT (deep vein thrombosis) Right popliteal vein 2015 on long-term anticoagulation with Xarelto History of stroke with residual deficit Ischemia Overactive bladder Seasonal rhinitis Spinal stenosis of lumbar region at multiple levels Suspected COVID-19 virus infection TIA (transient ischemic attack) With negative MRI December 2015 Urinary incontinence, mixed UTI (urinary tract infection) Vertigo Surgical History Surgical History H/O foot surgery BL H/O repair of rotator cuff Left History of appendectomy History of bilateral breast biopsy With benign pathology History of bilateral cataract extraction History of bladder suspension procedure With subsequent revision History of cardiac catheterization 16 years ago that was reportedly negative History of left knee replacement January 2012 History of spinal surgery cages is sacroiliac in right side History of total hysterectomy with bilateral salpingo-oophorectomy (BSO) Hx laparoscopic cholecystectomy Laparoscopic cholecystectomy 06/22/[address] Ram Family History Family History Son Diabetes mellitus Enlarged heart Son Enlarged heart Father Pancreatic cancer Sibling Cancer Mother Emphysema lung Social History Social History Social History: Primary care physician: Dr. 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 Substance use: never Substance use type: does not use Lack of Transportation: No Lack of Food: Never True Current Housing: I Have Housing Concerned About Future Housing: No Difficulty Paying Gas/Electric Bills: No Difficulty Paying for Meds: No Currently Unemployed: No Education: High School Diploma/GED Difficulty w/ Childcare or Family Care: No Living arrangements: alone Additional living arrangements comments: She is and lives alone. She is independent in activities of daily living. She has 4 children. Her daughter and son-in-law live locally. Two of her sons live in [place] in the oldest son lives in [place]. her daughter Katelynn is a durable power regulatory attorney for healthcare Occupation/Education:
--- NOTE | 2023-06-13 03:35 | ADMGEN ---
This patient, Leticia Nguyen, was admitted to 2 Medical Room 256-. Patient/family oriented to hospital policies and general routines including ID bracelet, bed and alarms, visiting hours, pain management, procedures, bathroom and other care routines, personal items, smoking policy, room service/diet, and visiting hours. Information on how to activate the Rapid Response Team has been discussed. Patient/Family are encouraged to report perceived risks to care and to ask questions if they do not understand what they are told or what they should do.
[2023-06-13] MEDS: SCOPOLAMINE 1.5 MG PATCH TRANSDERM (04:17)
[2023-06-13] MEDS: LORazepam (*CRX) 2 MG/ML 30 ML ORAL CONCENTRATE 1 MG SUBLINGUAL (04:18)
--- NOTE | 2023-06-13 08:47 | PM.IMHP ---
H&P: HPI History of Present Illness Date/Time: 06/13/23 08:47 Chief Complaint: Unresponsive Narrative: 87yo female and CKD, CVA and HTN brought in after being found unresponsive. Patient is unresponsive and unable to provide history. Family is at bedside. Patient was found unresponsive by her daughter. It appears she did vomit at some point. Patient had agonal respirations on arrival to the emergency room. Patient initially was intubated. CT of the brain showed large intraventricular hemorrhage with shift. Neurosurgery at [facility] was consulted through the ED and they agreed that as this was not a life-sustaining hemorrhage. Results were discussed with family and they decided to remove the ET tube. Patient was admitted for comfort measures. Review of Systems Review of Systems: ROS unobtainable: Yes unobtainable due to mental status PMFSH Past Medical History Medical History Acute kidney failure, unspecified Chronic bronchitis PFTs May 2018 demonstrating mild restrictive him ukvd-uu-jouqpmer obstructive disease of the small airways CKD (chronic kidney disease) stage 3, GFR 30-59 ml/min CVA (cerebral vascular accident) multiple x6, Dyspnea on exertion Essential hypertension With prior hospitalizations for malignant hypertension in 2018 GERD (gastroesophageal reflux disease) History of DVT (deep vein thrombosis) Right popliteal vein 2015 on long-term anticoagulation with Xarelto History of stroke with residual deficit Ischemia Overactive bladder Seasonal rhinitis Spinal stenosis of lumbar region at multiple levels Suspected COVID-19 virus infection TIA (transient ischemic attack) With negative MRI December 2015 Urinary incontinence, mixed UTI (urinary tract infection) Vertigo Surgical History Surgical History H/O foot surgery BL H/O repair of rotator cuff Left History of appendectomy History of bilateral breast biopsy With benign pathology History of bilateral cataract extraction History of bladder suspension procedure With subsequent revision History of cardiac catheterization 16 years ago that was reportedly negative History of left knee replacement January 2012 History of spinal surgery cages is sacroiliac in right side History of total hysterectomy with bilateral salpingo-oophorectomy (BSO) Hx laparoscopic cholecystectomy Laparoscopic cholecystectomy 06/22/[address] Ram Family History Family History Son Diabetes mellitus Enlarged heart Son Enlarged heart Father Pancreatic cancer Sibling Cancer Mother Emphysema lung Social History Social History Social History: Primary care physician: Dr. 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 Substance use: never Substance use type: does not use Lack of Transportation: No Lack of Food: Never True Current Housing: I Have Housing Concerned About Future Housing: No Difficulty Paying Gas/Electric Bills: No Difficulty Paying for Meds: No Currently Unemployed: No Education: High School Diploma/GED Difficulty w/ Childcare or Family Care: No Living arrangements: alone Additional living arrangements comments: She is and lives alone. She is independent in activities of daily living. She has 4 children. Her daughter and son-in-law live locally. Two of her sons live in [place] in the oldest son lives in [place]. her daughter Katelynn is a durable power criminal attorney for healthcare Occupation/Education: retired Additional occupation/edu
[2023-06-13] MEDS: MORPHINE SULFATE ORAL CONC SOL (*CRX) 10 MG/0.5 ML SYRINGE 5 MG PO ×2 (16:08→20:53)
--- NOTE | 2023-06-14 03:38 | PC.NURSE ---
MTS NOTIFIED OF PT GOING TO [place]
--- NOTE | 2023-06-14 06:48 | P.DN_ITS ---
Discharge Summary Date and Time Date of : 06/14/23 Time of : 01:47 Provider Pronounced By: DEANDRE OCAMPO RN Probable Cause of Probable Cause of : Hemorrhagic CVA Summary Hospital Course: Patient was found unresponsive by her daughter.?Patient had agonal respirations on arrival to the emergency room.? Patient initially was intubated. CT of the brain showed large intraventricular hemorrhage with shift. Neurosurgery at [facility] was consulted through the ED and they agreed that this was not a life-sustaining hemorrhage.? Results were discussed with family and they decided to remove the ET tube and make patient comfortable.? Patient was admitted for comfort measures and in the back tender insulation board hours of 06/14/23.? Additional Data Confirmation of as documented by pronouncing clinician: Pupillary Reflex, Palpable Pulses, Response to Stimuli, Heart Tones and Breath Sounds Name of Provider Notified: DR. VALERIO Time Provider Notified: 01:54 Provider Requests Autopsy: No Family Requests Autopsy: No Assistant Toddler Teacher Notified: Yes Date [facility] Notified of : 06/14/23 Time [facility] Notified of : 01:54
== END 2023-06-14 01:47 | disposition expired | DRG 65 ==
LOC: ANHED 06-13 01:32 → ANH2MED 06-13 01:56
PROVIDERS: Admitting Provider Internal Medicine; Emergency Provider Emergency Medicine; PCP Internal Medicine; Visit Provider Internal Medicine
DX: I61.5 Nontraumatic intracerebral hemorrhage, intraventricular (principal); D62 Acute posthemorrhagic anemia; D68.9 Coagulation defect, unspecified; I12.9 Hypertensive chronic kidney disease with stage 1 through stage 4 chronic kidney disease, or unspecified chronic kidney disease; N18.30 Chronic kidney disease, stage 3 unspecified; N32.81 Overactive bladder; I60.8 Other nontraumatic subarachnoid hemorrhage; K21.00 Gastro-esophageal reflux disease with esophagitis, without bleeding; M48.061 Spinal stenosis, lumbar region without neurogenic claudication; D69.6 Thrombocytopenia, unspecified; E87.6 Hypokalemia; E16.2 Hypoglycemia, unspecified; D72.819 Decreased white blood cell count, unspecified; R79.89 Other specified abnormal findings of blood chemistry; Z66 Do not resuscitate; Z96.652 Presence of left artificial knee joint; Z86.73 Personal history of transient ischemic attack (TIA), and cerebral infarction without residual deficits; Z90.710 Acquired absence of both cervix and uterus; Z86.718 Personal history of other venous thrombosis and embolism; Z90.49 Acquired absence of other specified parts of digestive tract; Z90.722 Acquired absence of ovaries, bilateral; Z51.5 Encounter for palliative care; Z79.01 Long term (current) use of anticoagulants
CPT/HCPCS: 31500; 36415; 36600; 70450; 80053; 81001; 82805; 83605; 83880; 84478; 84484; 85025; 85055; 85610; 85730; 87637; 93005; 96365; 96366; 96375; 99291; A9270; J2270; J2704